=== PATIENT | female | born 1985 | race Caucasian/White ===

== ENCOUNTER 2016-09-12 12:55 | Outpatient (CLI) | payer OTHER ==
[~2016-09-12] VITALS: Ht 167.6 cm; Wt 116.8 kg
[~2016-09-12 12:55] MED LIST: /DULO30CA OR; /FENT50PA TD; ALDA50TA2 PO; AMBI12.52 PO; AMIT25TA10 PO; ASPI1TAB PO; BENA25TA4 PO; CIPROFLAXIN PO; CLON-412 PO; CLON1TAB PO; COLA50CA3 PO; CORE6.25 PO; DILT30TA2 PO; Dronabinol OR; EPIP0.3I2 INJ; ERRI0.35 PO; FLEC1TAB PO; HYDR-3363 PO; HYDROCODONE; IBUP800T OR; IMIT100T OR; IMIT6KIT2 SC; LABE100T2; LYRI75CA PO; MARI5CAP PO; MARINOL PO; MEDR4PAK PO; MSCONTIN PO; NAPR500T; NAPR500T OR; NORCOTAB PO; NORT25CA2 OR; OXYC10TA2 PO; OXYC30TA4 PO; PERC5TAB8 OR; PRED10TA2 PO; PREG100CA OR; PRIL40CA PO; PROP20TA2 OR; SENN8.6T10 PO; SODIUM CHLORIDE 0.9% INJ 10 ML SYR IV SCH; SOMA350T PO; TOPA100T8 PO; TOPAMAX; TOPI50TA; TOPI50TA OR; TYLE-18 PO; VICO5TAB; VIST50CA; ZANA2CAP OR; ZOFR4SOL PO; ZOFR8TAB; ZOLO50TA PO; [UNRECOGNIZED DRUG - CODE]; lisinopril PO; vicodin PO
== END 2016-09-12 13:30 | disposition home or self-care (01) ==
LOC: M INFU 12:55
PROVIDERS: ATTEND Family Medicine
DX: I48.91 Unspecified atrial fibrillation (principal); Z79.899 Other long term (current) drug therapy; Z88.8 Allergy status to other drugs, medicaments and biological substances; Z91.040 Latex allergy status; Z91.013 Allergy to seafood

== ENCOUNTER 2016-09-12 12:57 | Outpatient (CLI) | payer OTHER ==
[~2016-09-12 12:57] MED LIST changes: -SODIUM CHLORIDE 0.9% INJ 10 ML SYR IV SCH
== END 2016-09-12 13:30 | disposition home or self-care (01) ==
LOC: M LAB 12:57
PROVIDERS: ATTEND Specialist
DX: I48.91 Unspecified atrial fibrillation (principal)

== ENCOUNTER → 2016-09-14 | Outpatient (CLI) | payer OTHER ==
--- NOTE | 2016-09-14 13:53 | REP ---
Clinical: Anatomical evaluation. Comparison: 08/31/2016 . Findings: Examination demonstrates a single live intrauterine in cephalic presentation. motion is identified by technologist. Placenta is noted posteriorly and grade zero without evidence for placenta previa or abruption. Amniotic fluid volume is normal. Cervix measures 3.8 cm in length and appears closed. No evidence for nuchal cord. Gestational age by LMP 20 weeks 4 days with FARHAN 01/28/2017 . Gestational age by current measurements 20 weeks 1 day with FARHAN 01/31/2017 . FHR equals 147 beats per minute. Estimated weight 338 grams ( 33rd percentile). Anatomical assessment demonstrates normal structures including cranium, choroid plexus, cavum, cerebellum/posterior fossa, facial features, lungs, diaphragm, stomach, cord insertion/three-vessel cord, kidneys/bladder, spine, and extremities. Facial profile and four-chamber heart view again limited in evaluation due to positioning. Impression: Single live intrauterine demonstrating appropriate interval growth. While no gross anatomical abnormalities are identified, limited evaluation of the facial profile and heart/ventricular outflow tracts is again noted. Signed by Zak Noriega MD 09/14/2016 01:44 P
== END ==
LOC: M RAD 12:50
PROVIDERS: ATTEND Specialist
DX: Z36 Encounter for antenatal screening of mother (principal); Z3A.20 20 weeks gestation of pregnancy

== ENCOUNTER 2016-10-10 15:00 | Outpatient (CLI) | payer OTHER ==
[~2016-10-10] VITALS: Ht 167.6 cm; Wt 116.8 kg
[~2016-10-10 15:00] MED LIST changes: +SODIUM CHLORIDE 0.9% INJ 10 ML SYR IV SCH
== END 2016-10-10 15:30 | disposition home or self-care (01) ==
LOC: M INFU 15:00
PROVIDERS: ATTEND Family Medicine
DX: I48.91 Unspecified atrial fibrillation (principal); Z79.899 Other long term (current) drug therapy; Z88.8 Allergy status to other drugs, medicaments and biological substances; Z91.040 Latex allergy status; Z91.013 Allergy to seafood

== ENCOUNTER → 2016-10-12 | Outpatient (CLI) | payer OTHER ==
[~2016-10-12] MED LIST changes: -SODIUM CHLORIDE 0.9% INJ 10 ML SYR IV SCH
--- NOTE | 2016-10-13 03:39 | REP ---
Clinical: Anatomical evaluation. Comparison: 09/14/2016 . Findings: Examination demonstrates a single live intrauterine in cephalic presentation. motion is identified by technologist. Placenta is noted posteriorly and grade zero without evidence for placenta previa or abruption. Amniotic fluid volume is normal. Cervix measures 4.4 cm in length and appears closed. No evidence for nuchal cord. Gestational age by LMP 24 weeks 4 days with FARHAN 01/28/2017 . Gestational age by current measurements 24 weeks to date with FARHAN 01/30/2017 . FHR equals 150 beats per minute. Estimated weight 693 grams ( 38th percentile). Anatomical assessment demonstrates normal structures including cranium, choroid plexus, cavum, cerebellum/posterior fossa, facial features, lungs, diaphragm, stomach, cord insertion/three-vessel cord, kidneys/bladder, spine, and extremities. Impression: Single live intrauterine in cephalic presentation demonstrating appropriate interval growth. Limited evaluation of the heart and cardiac ventricular outflow tracts noted. Remainder of the anatomical assessment is complete and normal. Signed by Zak Noriega MD 10/13/2016 03:31 A
== END ==
LOC: M RAD 15:07
PROVIDERS: ATTEND Specialist
DX: Z36 Encounter for antenatal screening of mother (principal); Z3A.24 24 weeks gestation of pregnancy

== ENCOUNTER → 2016-10-26 | Outpatient (CLI) | payer OTHER ==
--- NOTE | 2016-10-26 13:26 | REP ---
Clinical: Anatomical evaluation. Comparison: 10/12/2016 . Findings: Examination demonstrates a single live intrauterine in cephalic presentation. motion is identified by technologist. Placenta is noted posteriorly and grade zero without evidence for placenta previa or abruption. Amniotic fluid volume is normal. Cervix measures 5.7 cm in length and appears closed. No evidence for nuchal cord. Gestational age by LMP 26 weeks 4 days with FARHAN 01/28/2017 . Gestational age by current measurements 26 weeks 4 days with FARHAN 01/28/2017 . FHR equals 163 beats per minute. Estimated weight 963 grams ( 43rd percentile). Anatomical assessment demonstrates normal structures including cranium, choroid plexus, cavum, cerebellum/posterior fossa, facial features, lungs, four-chamber heart/ventricular outflow tracts, diaphragm, stomach, cord insertion/three-vessel cord, kidneys/bladder, spine, and extremities. Impression: Single live intrauterine demonstrating appropriate interval growth. Anatomical assessment is complete and normal. Signed by Zak Noriega MD 10/26/2016 01:18 P
== END ==
LOC: M RAD 11:20
PROVIDERS: ATTEND Specialist
DX: Z36 Encounter for antenatal screening of mother (principal); Z3A.26 26 weeks gestation of pregnancy

== ENCOUNTER 2016-10-28 08:09 | Outpatient (CLI) | payer OTHER ==
[2016-10-28] MEDS ORDERED: SODIUM CHLORIDE 0.9% INJ 10 ML SYR IV SCH (09:00)
[2016-10-28 10:20] LABS: BASO % 0.5 % (0.0-1.0); EOS # 0.3 K/mm3 (0.0-0.50); EOS % 2.8 % (0.0-3.0); LARGE UNSTAINED CELL # 0.1 K/mm3 (0.0-0.4); LARGE UNSTAINED CELL % 1.4 % (0.0-4.0); LYMPH # 2.4 K/mm3 (1.5-4.5); LYMPH % 23.8 % (24.0-44.0); MEAN CORPUSCULAR HEMOGLOBIN 30.6 pg (27.0-33.0); MEAN CORPUSCULAR HGB CONC 33.8 g/dl (32.0-36.5); MEAN CORPUSCULAR VOLUME 90.5 fl (80.0-96.0); MONO # 0.6 K/mm3 (0.0-0.8); MONO % 6.7 % (0.0-5.0); NEUTROPHILS # 6.1 K/mm3 (1.8-7.7); NEUTROPHILS % 64.8 % (36.0-66.0); PLATELET COUNT, AUTOMATED 245 k/mm3 (150-450); RED CELL DISTRIBUTION WIDTH 13.2 % (11.5-14.5); WHITE BLOOD COUNT 9.4 K/mm3 (4.0-10.0)
== END 2016-10-28 09:45 | disposition home or self-care (01) ==
LOC: M INFU 08:09
PROVIDERS: ATTEND Specialist
DX: Z79.899 Other long term (current) drug therapy (principal); Z88.8 Allergy status to other drugs, medicaments and biological substances; Z88.5 Allergy status to narcotic agent; Z91.040 Latex allergy status; Z91.013 Allergy to seafood; Z87.891 Personal history of nicotine dependence

== ENCOUNTER 2016-10-29 11:01 | Outpatient (CLI) | payer OTHER ==
[~2016-10-29] VITALS: Ht 167.6 cm; Wt 99.0 kg
[~2016-10-29 11:01] MED LIST changes: +SODIUM CHLORIDE 0.9% INJ 10 ML SYR IV SCH
[2016-10-29 11:16] VITALS: BP 142/71
[2016-10-29] MEDS ORDERED: LACTATED RINGER'S 1000 ML IV STA (11:31)
[2016-10-29] MEDS ORDERED: LR 1,000 ML IV SCH (11:31)
[2016-10-29] MEDS ORDERED: levETIRAcetam 250MG TABLET (KEPPRA) PO ONE (11:45)
[2016-10-29] MEDS ORDERED: ONDANSETRON 4MG/2ML VIAL (J2405) As Ordered ONE (12:14)
[2016-10-29] MEDS ORDERED: ONDANSETRON 4MG/2ML VIAL (J2405) IV ONE (12:30)
[2016-10-29 12:36] LABS: BASO % 0.2 % (0.0-1.0); EOS # 0.1 K/mm3 (0.0-0.50); EOS % 0.6 % (0.0-3.0); LARGE UNSTAINED CELL % 0.4 % (0.0-4.0); LYMPH % 8.4 % (24.0-44.0); MEAN CORPUSCULAR HGB CONC 34.4 g/dl (32.0-36.5); MEAN CORPUSCULAR VOLUME 90.1 fl (80.0-96.0); MONO # 0.6 K/mm3 (0.0-0.8); MONO % 4.9 % (0.0-5.0); NEUTROPHILS # 9.8 K/mm3 (1.8-7.7); NEUTROPHILS % 85.5 % (36.0-66.0); PLATELET COUNT, AUTOMATED 247 k/mm3 (150-450); RED CELL DISTRIBUTION WIDTH 13.1 % (11.5-14.5); WHITE BLOOD COUNT 11.5 K/mm3 (4.0-10.0)
[2016-10-29 12:58] LABS: ALBUMIN/GLOBULIN RATIO 0.88 (1.00-1.93); ALKALINE PHOSPHATASE 94 U/L (45-117); ALT/SGPT 16 U/L (12-78); ANION GAP 11 MEQ/L (8-16); AST/SGOT 11 U/L (15-37); BILIRUBIN,TOTAL 0.4 MG/DL (0.2-1.0); BLOOD UREA NITROGEN 5 MG/DL (7-18); CALCIUM LEVEL 8.1 MG/DL (8.5-10.1); CARBON DIOXIDE LEVEL 25 MEQ/L (21-32); CHLORIDE LEVEL 106 MEQ/L (98-107); CREATININE FOR GFR 0.48 MG/DL (0.55-1.02); GLOMERULAR FILTRATION RATE > 60.0 (>60); GLUCOSE, FASTING 77 MG/DL (70-105); POTASSIUM SERUM 3.5 MEQ/L (3.5-5.1); SODIUM LEVEL 142 MEQ/L (136-145); TOTAL PROTEIN 6.4 GM/DL (6.4-8.2)
== END 2016-10-29 15:50 | disposition home or self-care (01) ==
LOC: M LDO 11:01
PROVIDERS: ATTEND Specialist
DX: O21.2 Late vomiting of pregnancy (principal); Z3A.26 26 weeks gestation of pregnancy
CPT/HCPCS: 59025; 80053; 85025; 87804; 96374; J2405

== ENCOUNTER 2016-11-07 15:03 | Outpatient (CLI) | payer OTHER ==
[2016-11-07 16:10] LABS: BASO % 0.3 % (0.0-1.0); EOS # 0.1 K/mm3 (0.0-0.50); EOS % 1.2 % (0.0-3.0); LARGE UNSTAINED CELL # 0.1 K/mm3 (0.0-0.4); LYMPH # 2.7 K/mm3 (1.5-4.5); LYMPH % 22.5 % (24.0-44.0); MEAN CORPUSCULAR HEMOGLOBIN 31.3 pg (27.0-33.0); MEAN CORPUSCULAR HGB CONC 34.4 g/dl (32.0-36.5); MEAN CORPUSCULAR VOLUME 90.9 fl (80.0-96.0); MONO # 0.7 K/mm3 (0.0-0.8); MONO % 5.7 % (0.0-5.0); NEUTROPHILS % 69.3 % (36.0-66.0); PLATELET COUNT, AUTOMATED 251 k/mm3 (150-450); RED CELL DISTRIBUTION WIDTH 13.1 % (11.5-14.5); WHITE BLOOD COUNT 11.6 K/mm3 (4.0-10.0)
[2016-11-07 16:50] LABS: ALBUMIN 2.8 GM/DL (3.2-5.2); ALBUMIN/GLOBULIN RATIO 0.85 (1.00-1.93); ALKALINE PHOSPHATASE 90 U/L (45-117); ALT/SGPT 20 U/L (12-78); ANION GAP 11 MEQ/L (8-16); AST/SGOT 18 U/L (15-37); BILIRUBIN,TOTAL 0.2 MG/DL (0.2-1.0); BLOOD UREA NITROGEN 5 MG/DL (7-18); CALCIUM LEVEL 8.1 MG/DL (8.5-10.1); CARBON DIOXIDE LEVEL 25 MEQ/L (21-32); CHLORIDE LEVEL 106 MEQ/L (98-107); CREATININE FOR GFR 0.43 MG/DL (0.55-1.02); GLOMERULAR FILTRATION RATE > 60.0 (>60); GLUCOSE, FASTING 79 MG/DL (70-105); POTASSIUM SERUM 3.9 MEQ/L (3.5-5.1); SODIUM LEVEL 142 MEQ/L (136-145); TOTAL PROTEIN 6.1 GM/DL (6.4-8.2)
== END 2016-11-07 15:55 | disposition home or self-care (01) ==
LOC: M INFU 15:03
PROVIDERS: ATTEND Specialist
DX: I48.91 Unspecified atrial fibrillation (principal); Z79.899 Other long term (current) drug therapy; Z88.8 Allergy status to other drugs, medicaments and biological substances; Z91.040 Latex allergy status; Z91.013 Allergy to seafood; Z88.5 Allergy status to narcotic agent

== ENCOUNTER 2016-12-14 14:45 | Outpatient (CLI) | payer OTHER ==
[~2016-12-14] VITALS: Ht 167.6 cm; Wt 116.8 kg
== END 2016-12-14 15:15 | disposition home or self-care (01) ==
LOC: M INFU 14:45
PROVIDERS: ATTEND Family Medicine
DX: I48.91 Unspecified atrial fibrillation (principal); Z79.899 Other long term (current) drug therapy; Z88.8 Allergy status to other drugs, medicaments and biological substances; Z88.5 Allergy status to narcotic agent; Z91.040 Latex allergy status; Z91.013 Allergy to seafood

== ENCOUNTER 2016-12-27 13:42 | Outpatient (CLI) | payer OTHER ==
[~2016-12-27] VITALS: Ht 167.6 cm; Wt 116.8 kg
[2016-12-27 14:28] LABS: BASO % 0.4 % (0.0-1.0); EOS # 0.2 K/mm3 (0.0-0.50); EOS % 1.8 % (0.0-3.0); LARGE UNSTAINED CELL # 0.1 K/mm3 (0.0-0.4); LARGE UNSTAINED CELL % 1.1 % (0.0-4.0); LYMPH # 2.2 K/mm3 (1.5-4.5); LYMPH % 22.1 % (24.0-44.0); MEAN CORPUSCULAR HEMOGLOBIN 32.5 pg (27.0-33.0); MEAN CORPUSCULAR HGB CONC 35.9 g/dl (32.0-36.5); MEAN CORPUSCULAR VOLUME 90.5 fl (80.0-96.0); MONO # 0.4 K/mm3 (0.0-0.8); MONO % 4.2 % (0.0-5.0); NEUTROPHILS # 7.1 K/mm3 (1.8-7.7); NEUTROPHILS % 70.4 % (36.0-66.0); PLATELET COUNT, AUTOMATED 232 k/mm3 (150-450); RED CELL DISTRIBUTION WIDTH 12.7 % (11.5-14.5); WHITE BLOOD COUNT 10.1 K/mm3 (4.0-10.0)
[2016-12-27 14:56] LABS: CHLORIDE LEVEL 105 MEQ/L (98-107); POTASSIUM SERUM 3.7 MEQ/L (3.5-5.1); SODIUM LEVEL 138 MEQ/L (136-145)
[2016-12-27 15:32] LABS: BLOOD UREA NITROGEN 5 MG/DL (7-18); CREATININE FOR GFR 0.49 MG/DL (0.55-1.02); GLOMERULAR FILTRATION RATE > 60.0 (>60); GLUCOSE, FASTING 96 MG/DL (70-105)
[2016-12-27 15:33] LABS: ALBUMIN 2.8 GM/DL (3.2-5.2); ALBUMIN/GLOBULIN RATIO 0.78 (1.00-1.93); ALKALINE PHOSPHATASE 128 U/L (45-117); ALT/SGPT 10 U/L (12-78); ANION GAP 10 MEQ/L (8-16); AST/SGOT 9 U/L (15-37); BILIRUBIN,TOTAL 0.3 MG/DL (0.2-1.0); CARBON DIOXIDE LEVEL 23 MEQ/L (21-32); TOTAL PROTEIN 6.4 GM/DL (6.4-8.2); URIC ACID 3.2 MG/DL (2.6-6.0)
== END 2016-12-27 14:15 | disposition home or self-care (01) ==
LOC: M INFU 13:42
PROVIDERS: ATTEND Family Medicine
DX: O99.350 Diseases of the nervous system complicating pregnancy, unspecified trimester (principal); G40.409 Other generalized epilepsy and epileptic syndromes, not intractable, without status epilepticus; O99.413 Diseases of the circulatory system complicating pregnancy, third trimester; I48.91 Unspecified atrial fibrillation; O10.013 Pre-existing essential hypertension complicating pregnancy, third trimester; Z79.899 Other long term (current) drug therapy; Z88.8 Allergy status to other drugs, medicaments and biological substances; Z88.5 Allergy status to narcotic agent; Z91.040 Latex allergy status; Z91.013 Allergy to seafood; Z3A.00 Weeks of gestation of pregnancy not specified

== ENCOUNTER → 2016-12-28 | Outpatient (REF) | payer OTHER ==
[~2016-12-28] MED LIST changes: -SODIUM CHLORIDE 0.9% INJ 10 ML SYR IV SCH
[2016-12-28 18:06] LABS: CREATININE, SERUM 0.5 MG/DL (0.6-1.0)
[2016-12-28 20:01] LABS: CREATININE CLEARANCE, URINE 174.2 ML/MIN (75-115)
== END ==
LOC: M LAB REF 17:35
PROVIDERS: ATTEND Advanced Practice Midwife
DX: O10.013 Pre-existing essential hypertension complicating pregnancy, third trimester (principal)

== ENCOUNTER → 2017-01-06 | Outpatient (REF) | payer OTHER | LOC: M LAB REF 16:51 | PROVIDERS: ATTEND Specialist | DX: O10.013 Pre-existing essential hypertension complicating pregnancy, third trimester (principal) ==

== ENCOUNTER 2017-02-16 15:41 | Outpatient (CLI) | payer OTHER ==
[~2017-02-16 15:41] MED LIST changes: +SODIUM CHLORIDE 0.9% INJ 10 ML SYR IV SCH
== END 2017-02-16 16:00 | disposition home or self-care (01) ==
LOC: M INFU 15:41
PROVIDERS: ATTEND Family Medicine
DX: I48.91 Unspecified atrial fibrillation (principal); Z79.899 Other long term (current) drug therapy; Z88.8 Allergy status to other drugs, medicaments and biological substances; Z91.040 Latex allergy status; Z91.013 Allergy to seafood

== ENCOUNTER → 2017-02-28 | Outpatient (CLI) | payer OTHER ==
[~2017-02-28] MED LIST changes: -SODIUM CHLORIDE 0.9% INJ 10 ML SYR IV SCH
--- NOTE | 2017-02-28 11:33 | REP ---
Clinical: Pelvic and perineal pain. Technique: Transabdominal pelvic ultrasound followed by transvaginal examination for better evaluation of the endometrium. Findings: Bladder is unremarkable and measures 9.1 x 3.7 x 7.3 cm . Normal retroflexed uterus measures 10.3 x 5.4 x 7.2 cm . The endometrial complex measures 10 mm thickness. No discrete uterine or endometrial abnormalities are appreciated. Bilateral ovaries are normal in appearance. Right ovary measures 2.8 x 2.2 x 2.5 cm. Left ovary measures 2.4 x 1.6 x 1.9 cm. No pelvic fluid or adnexal mass lesion. Impression: 1. Normal pelvic ultrasound. Signed by Zak Noriega MD 02/28/2017 11:24 A
== END ==
LOC: M RAD 10:52
PROVIDERS: ATTEND Specialist
DX: R10.9 Unspecified abdominal pain (principal)

== ENCOUNTER 2017-03-02 09:37 | Outpatient (CLI) | payer OTHER ==
[~2017-03-02] VITALS: Ht 167.6 cm; Wt 110.8 kg
[~2017-03-02 09:37] MED LIST changes: +SODIUM CHLORIDE 0.9% INJ 10 ML SYR IV SCH; +TOPA100T12 PO; -TOPA100T8 PO
== END 2017-03-02 10:15 | disposition home or self-care (01) ==
LOC: M INFU 09:37
PROVIDERS: ATTEND Family Medicine
DX: I48.91 Unspecified atrial fibrillation (principal); Z79.899 Other long term (current) drug therapy; Z88.5 Allergy status to narcotic agent; Z88.8 Allergy status to other drugs, medicaments and biological substances; Z91.040 Latex allergy status; Z91.013 Allergy to seafood

== ENCOUNTER 2017-03-16 15:21 | Outpatient (CLI) | payer OTHER | END 2017-03-16 16:00 | disposition home or self-care (01) | LOC: M INFU 15:21 | PROVIDERS: ATTEND Family Medicine | DX: I48.91 Unspecified atrial fibrillation (principal); Z79.899 Other long term (current) drug therapy; Z88.5 Allergy status to narcotic agent; Z88.8 Allergy status to other drugs, medicaments and biological substances; Z91.040 Latex allergy status; Z91.013 Allergy to seafood ==

== ENCOUNTER → 2017-04-12 | Outpatient (CLI) | payer OTHER ==
[~2017-04-12] MED LIST changes: +LEVETIRACETAM; +PERC5TAB12 PO; +PRAZ1CAP; -SODIUM CHLORIDE 0.9% INJ 10 ML SYR IV SCH; +ZOLO100T
== END ==
LOC: M PAIN 15:00
PROVIDERS: ATTEND Anesthesiology
DX: G57.91 Unspecified mononeuropathy of right lower limb (principal); Z53.20 Procedure and treatment not carried out because of patient's decision for unspecified reasons

== ENCOUNTER → 2017-04-19 | Outpatient (CLI) | payer OTHER ==
--- NOTE | 2017-05-04 00:24 | ECWPNPC ---
PATIENT NAME: OSMANY SAMPSON : 1985 GENDER: FEMALE VISIT DATE: 04/19/2017 DISCHARGE DATE: 04/19/17 1647 VISIT LOCKED DATE TIME: PHYSICIAN: LUMA POOL PHYSICIAN PAGER NO: [phone] RESOURCE: LUMA POOL REASON FOR APPOINTMENT 1. ILLOINGUINAL NERVE HISTORY OF PRESENT ILLNESS TODAY'S VISIT: NOTES: PT REFERRED BY DR ROSSI FOR C/O POST CESEAREAN LOW RIGHT ABDOMENAL PAIN. CSECTION 01/26/17. ONSET OF PAIN WAS A FEW DAYS AFTER SURGERY. PAIN IS A BURNING/STABBING /SHOOTING WHICH IS CONSTANT. PAIN CAN BECOME GRABBING AND EXTREMELY INTENSE. PAIN IS TIGHT AT OUTER EDGE OF THE INCISION AND RADIATES INTO SARAH. OCCASIONAL SHARP STABB DEEP INTO VAGINA. HAS OLD HX OF BACK PAIN. IS BEING SCHEDULED FOR BACK SURGERY AT [place] May. NOT NURSING. HAS BEEN TREATED WITH PAIN MEDS BY DR ROSSI. HAS ALLERGIES TO BETADINE , CHLORAPREP.. NEW PATIENT CONSULT: WHEN DID YOUR PAIN FIRST START? . BRIEFLY DESCRIBE HOW YOUR PAIN STARTED? . HOW DOES YOUR PAIN CHANGE WITH TIME? . DOES YOUR PAIN AWAKEN YOU FROM SLEEP? . HOW MANY HOURS OF SLEEP DO YOU NORMALLY GET? . ANY DIAGNOSTIC TESTING? . FACILITY WHERE TESTS WERE DONE? ____. PAIN TREATMENT TREATMENT YES CANCER HAVE YOU EVER HAD ANY TYPE OF CANCER?NO NO. PAIN SCREENING: PATIENT HAS A COMPLAINT OF ACUTE OR CHRONIC PAIN :YES FALL RISK SCREENING: SCREENING :NO FALLS IN THE PAST YEAR DUVALL INVENTORY: QUESTIONNAIRE ASSESSEDYES SCORE VALUE CALCULATED YES SCORE: DENIES SUICIDAL OR HOMICIDAL IDEATION CURRENT MEDICATIONS TAKING AMBIEN 10 MG TABLET 1 TABLET AT BEDTIME ORALLY HSPRN TAKING EPIPEN 0.3 MG/0.3ML SOLUTION AUTO-INJECTOR ONE APPLICATION INJECTION DIRECTED TAKING TIZANIDINE HCL 4 MG TABLET 1 1/2 CAPSULE NEEDED ORALLY EVERY 8 HRS PRN TAKING CARVEDILOL 12.5 MG TABLET 1 TABLET WITH FOOD ORALLY TWICE A DAY TAKING CARDIZEM 60 MG TABLET 1 TABLET BEFORE MEALS ORALLY THREE TIMES A DAY TAKING ZOFRAN ODT 4 MG TABLET DISPERSIBLE DISSOLVE ONE TO TWO TABLETS ON THE TONGUE THREE TIMES A DAY NEEDED ORALLY THREE TIMES DAILY NEEDED TAKING FLECAINIDE ACETATE 50 MG TABLET ORALLY TWICE DAILY NEEDED TAKING LEVETIRACETAM 500 MG TABLET 1 TABLET ORALLY TWICE A DAY TAKING PRAZOSIN HCL 2 MG CAPSULE 1 CAPSULE AND 1- 1MG CAPSULE ORALLY ONCE A DAY TAKING SERTRALINE HCL 100 MG TABLET 1 AND 1/2 TABLET ORALLY ONCE A DAY NOT-TAKING LYSTEDA 650 MG TABLET 2 TABLET ORALLY QIDPRN NOT-TAKING ALBUTEROL SULFATE HFA 108 (90 BASE) MCG/ACT AEROSOL SOLUTION 2 PUFFS NEEDED INHALATION EVERY 4 HRS MEDICATION LIST REVIEWED AND RECONCILED WITH THE PATIENT PAST MEDICAL HISTORY HYPERTENSION AFIB RSD FIBROMYALGIA SEIZURE DISORDER DDD ALLERGIES TRAMADOL: RASH,RESP.: ALLERGY NEURONTIN: NAUSEA/VOMITING: ALLERGY TORADOL: ,RESP: ALLERGY MOTRIN: NAUSEA/VOMITING: ALLERGY PENNSAID: RASH: ALLERGY CONTRAST DYE: ANAPHYLAXIS: ALLERGY LATEX: RASH: ALLERGY PICC LINES: RASH: ALLERGY SEAFOODS: ANAPHYLAXIS: ALLERGY SURGICAL GLUE: RASH: ALLERGY BETADINE/IODINE: RASH: ALLERGY ADHESIVE TAPE: RASH: ALLERGY SURGICAL HISTORY 6 LAPAROSCOPIES 2 D&C'S PORT PLACEMENT ABLASION AND LOOP RECORDER GALL BLADDER APPENDECTOMY X2 TEETH REMOVED LAPAROSCOPY,D+C- 02/19/15 REMOVAL OF LOOP [id number] INFECTION,CELLULITIS AND ALLERGIC REACTION TO SURGICAL GLUE 07/03/15 FAMILY HISTORY FATHER: UNKNOWN MOTHER: ALIVE 58 YRS SIBLINGS: ALIVE SON(S): ALIVE 1 BROTHER(S) , 2 SISTER(S) - HEALTHY. 1 SON(S) , 1 DAUGHTER(S) - HEALTHY. DAUGHTER HAS ASTHMA. SOCIAL HISTORY GENERAL: TOBACCO USE ARE YOU A:FORMER SMOKER HOW LONG HAS IT BEEN SINCE YOU LAST SMOKED?6-12 MONTHS RECREATIONAL DRUG USE DRUG USE?NO NONDENOMINATIONAL [id number] NONE LANGUAGE LANGUAGES SPOKEN:KINYARWANDA LEARNING BARRIERS / SPECIAL NEEDS BARRIERS TO LEARNING?NO HEARING IMPAIRED?NO VISION IMPAIRED?NO COGNITIVELY IMPAIRED?NO READINESS TO LEARN?YES LEARNING PREFERENCES?NO LEARNING CAPABILITIES PRESENT?YES EMOTIONAL BARRIERS?NO SPECIAL DEVICES?NO BUGGYMAN NEEDED?NO PAIN CLINIC PFS, CLERGY, PUBLIC HEALTH REFERRALS PFS REFERRAL NEEDED?NO CLERGY REFERRAL NEEDED?NO PUBLIC HEALTH REFERRAL NEEDED?NO WAS THE PROVIDER NOTIFIED OF ANY PERTINENT INFO?NO HAS THE PATIENT BEEN EDUCATED REGARDING HIS/HER PLAN OF CARE?YES HAS THE PATIENT BEEN EDUCATED REGARDING PAIN, THE RISK FOR PAIN, THE IMPORTANCE OF EFFECTIVE PAIN MANAGEMENT, AND THE PAIN ASSESSMENT PROCESS?YES PATIENT: ____. ADVANCE DIRECTIVES HEALTH CARE PROXY?YES NAME OF HCP LILIA SAMPSON CONTACT # FOR HCP [phone] DO YOU HAVE A COPY WITH YOU?NO DO YOU HAVE A DNR?NO WOULD YOU LIKE MORE INFORMATION?NO LIVING WILL?NO WOULD YOU LIKE MORE INFORMATION?NO POWER OF CONSUMER INSIGHTS INTERN?NO WOULD YOU LIKE MORE INFORMATION?NO HOSPITALIZATION/MAJOR DIAGNOSTIC PROCEDURE HOSPITALIZATIONS W SURGERIES ICU-COSTOCHONDRITIS 05/31/14 [facility]-ABD. PAIN AND SWELLING,VOMITING 12/19/14 [facility] ER-BACK INJURY 10/18/15 REVIEW OF SYSTEMS REVIEWED BY: PROVIDER: LUMA BARRON . CONSTITUTIONAL: ANY CHANGE IN YOUR MEDICAL CONDITION? NO . CHILLS NO . FEVER NO . INFECTION: DO YOU HAVE NEW INFECTIONS? NO . DO YOU HAVE HISTORY OF MRSA? NO . MUSCULOSKELETAL: ANY NEW PATTERNS OF PAIN OR NUMBNESS? NO . SYTEMIC LUPUS NO . BONE PAIN PERSISTANT LOW BACK PAIN WITH RADIATION INTO LEGS. PREPARING FOR SURGERY . MUSCLE PAIN HX OF CPMPLEX REGIONAL PAIN AND CONTRACTURES TO RIGHT HAND AND ARM . GASTROENTEROLOGY: ANY NEW CHANGE IN BOWEL CONTROL? NO . BARRETTS ESOPHAGUS NO . CIRRHOSIS NO . HEPATITIS NO . LIVER FAILURE NO . ACID REFLUX NO . UNEXPLAINED WEIGHT LOSS NO . GENITOURINARY: ANY NEW CHANGE IN BLADDER CONTROL? NO . IS THERE A CHANCE YOU COULD BE ? NO . HEMATOLOGY/LYMPH: DO YOU TAKE ANY BLOOD THINNERS? (FOR EXAMPLE- COUMADIN, PLAVIX, AGGRENOX, PLATEL, PRADAXA, OR XARELTO) NO . WHEN WAS YOUR LAST DOSE? DATE: TIME: . LOW PLATELET COUNT NO . SICKLE CELL DISEASE NO . VON WILLIEBRANDS NO . FACTOR V LEIDEN NO . THALLASEMIA NO . ANEMIA NO . EASY BRUISING NO . NEUROLOGY: ANY NEW SEIZURES? LAST SEIZURE 4 WEEKS AGO. ON [facility]SEES DR CHINYERE HUIZAR . MYAASTHENIA GRAVIS NO . CARDIOLOGY: DO YOU HAVE A PACEMAKER OR DEFIBRILLATOR? NO . ANGINA NO . HEART ATTACK NO . HEART SURGERY NO . CONGESTIVE HEART FAILURE/FLUID OVERLOAD NO . CHEST PAIN NO . HIGH BLOOD PRESSURE ON MEDICATION(S) . IRREGULAR HEART BEAT SKIPPED HEART BEAT- ATRIAL FIBRILLATION . RESPIRATORY: HAVE YOU BEEN SICK IN THE PAST WEEK? NO . FEVER NO . FLU LIKE SYMPTOMS? NO . CPAP NO . BYPAP NO . ASTHMA NO . EMPHYSEMA NO . CHRONIC LUNG DISEASES NO . SHORTNESS OF BREATH ON EXERTION NO . DO YOU USE ANY TYPE OF TOBACCO (SMOKE, SMOKELESS, CHEW)? NO . COUGH NO . SNORING NO . INTEGUMENTARY: DO YOU HAVE ANY RASHES OR OPEN SORES? NO . ALLERGIC/IMMUNO: ARE YOU ALLERGIC TO SHELLFISH OR IV DYE? YES, SHELLFISH AND IV DYE . ANY NEW ALLERGIES? NO . PSYCHIATRIC: DO YOU HAVE THOUGHTS OF HURTING YOURSELF OR SOMEONE ELSE? NO . ARE YOU ABUSED, NEGLECTED, OR IN AN UNSAFE ENVIRONMENT? NO . ENDOCRINOLOGY: ARE YOU DIABETIC? NO . THYROID DISORDER NO . OTHER: DO YOU NEED ANY PRESCRIPTIONS? NO . IF YES, PLEASE LIST: ____ . ANY NEW PROBLEMS WITH YOUR MEDICATIONS? NO . WHEN DID YOU LAST EAT? ____ . WHEN DID YOU LAST DRINK? ____ . WHAT DID YOU LAST DRINK? ____ . NAME OF PERSON DRIVING YOU HOME? ____ . DO YOU HAVE ANY OTHER QUESTIONS OR CONCERNS NO . PSYCHOLOGY: ANXIETY PTSD AND ANXIETY - SEES A COUNSELOR IS STILL DEALING WITH LEGAL ISSUES . SKIN: DO YOU HAVE ANY RASHES OR OPEN SORES? HEALED NOW BUT HAD YEAST INFECTION AND ALLERGIC REACTION AFTER . VITAL SIGNS WT 214 LBS, HT 5'5 1/2", BMI 35.07 INDEX, BP 143/74 MM HG, HR 79 /MIN, RR 18 /MIN, TEMP 98.1 F, OXYGEN SAT % 96, NA INITIALS AW 1515, REVIEWED BY: MAEGAN. EXAMINATION GENERAL EXAMINATION: GENERAL APPEARANCE:COLOR PALE, APPEARS UNCOMFORTABLE. CHANGES POSITION FREQUENTLY. PSYCHALERT , ORIENTED X 3 , APPROPRIATE MOOD AND AFFECT . HEENT:NORMOCEPHALIC, NO LYMPHADENOPATHY, NO THYROMEGLY. LUNGS:CLEAR TO AUSCULTATION BILATERALLY, NO WHEEZES, RALES OR RHONCHI. HEART:HEART RATE REGULAR, RAPID. NO CAROTID BRUITS. ABDOMEN:SOFT AND NOT TENDER, BOWEL SOUNDS ACTIVE. EXQUISITE TENDERNESS OVER RIGHT ILIOINGUINAL REGION ANLONG THE LATER ASPECT OF THE WELL HEALED INCISION OVER THE SYMPHYSIS PUBIS. SOME TENDERNESS AND HYPERSENSITIVITY OVER RIGHT ANTERIOR AND MEDIAL THIGH REGIONS. . MUSCULOSKELETAL:MUSCLE STRENGTH TESTING 5/5 BILATERAL LOWER EXTREMITIES AND LEFT UPPER EXTREMITY DECREASED MUSCLE STRENGTH, FLEXIBILITY AND ROM TO RIGHT HAND AND UPPER EXTREMITY.. POINT TENDERNESS OVER LUMBAR SPINOUS PROCESSES. 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 WALK AND MOVE POSSIBLESEND RELEASE OF INFORMATION FROM DR GALICIA AND HAVE HIM FAX TO [phone] SO WE CAN DISCUSS CASE AND THERAPIES. CLINICAL NOTES: ISTOP REGISTRY REVIEWED AND DEMNOSTRATES COMPLLIANCE. EDICATIONS WERE PRESENT. LENGTHY DISCUSSION HELD REGARDING OPTIONS FOFR MEDICATION MANAGEMENT. AT THAT TIME I DID NOT HAVE ALL OF PT'S OLD RECORDS. SHE REPORTS THAT SHE HAD BEEN ON MARINOL IN THE PAST AND THAT THIS WAS HELPFUL FOR PAIN CONTROL. WE DID START DISCUSSION REGARDING USE OF MEDICAL MARIJUANA. THAT REFERRAL WAS NOT YET MADE SHE IS BEING CURRENTL SCHEDULED OFR BACK SURGERY. I DID DISCUSS WITH HER THAT WE ARE NOT LOOKING TO USE MUCH IN THE WAY OF OPIATE MEDICATIONS. PREVENTIVE MEDICINE PAIN CLINIC TEACHING: MEDICATIONS MARINOL AND TIZANIDINE TEACHING DONE. PATIENT VERBALIZES UNDERSTANDING.. PROCEDURE TEACHING PRE-PROCEDURE TEACHING DONE. PATIENT VERBALIZES UNDERSTANDING.. PROCEDURE CODES FA211 ESTABILISHED PATIENT [facility] FACILITY CHARGE DISPOSITION & COMMUNICATION FOLLOW UP AFTER PROCEDURE (REASON: CHECK AUTH RIGHT ILIOINGUINAL NERVE BLOCK) ELECTRONICALLY SIGNED BY MAXIMILIAN ALVARADO ON 05/03/2017 AT 09:54 AM EDT DISCLAIMER : THIS IS A VISIT SUMMARY EXTRACTED FROM THE [employer] CHART. IT IS NOT A COPY OF THE [employer] PROGRESS NOTE. MTDD
== END ==
LOC: M PAIN 14:40
PROVIDERS: ATTEND Nurse Practitioner Family
DX: G57.91 Unspecified mononeuropathy of right lower limb (principal); M25.551 Pain in right hip; M25.552 Pain in left hip; Z79.899 Other long term (current) drug therapy; Z87.891 Personal history of nicotine dependence; Z88.8 Allergy status to other drugs, medicaments and biological substances; Z91.041 Radiographic dye allergy status; Z91.040 Latex allergy status; Z91.013 Allergy to seafood; Z91.048 Other nonmedicinal substance allergy status

== ENCOUNTER → 2017-04-26 | Outpatient (CLI) | payer OTHER ==
--- NOTE | 2017-04-26 14:27 | REP ---
PELVIS AND BILATERAL HIPS: AP view of the pelvis and AP and frog-leg views of bilateral hips are performed. There is no fracture, dislocation or intrinsic bone disease. The hip joints appear normal. Sacroiliac joints appear unremarkable. IMPRESSION: Negative radiographs pelvis and hips. Signed by Андрей Valles MD 04/26/2017 05:22 P
== END ==
LOC: M RAD 12:38
PROVIDERS: ATTEND Nurse Practitioner Family
DX: G57.91 Unspecified mononeuropathy of right lower limb (principal); M25.551 Pain in right hip; M25.552 Pain in left hip

== ENCOUNTER 2017-05-31 20:41 | Emergency (ER) | payer OTHER ==
[~2017-05-31 20:41] MED LIST changes: -LEVETIRACETAM; -PERC5TAB12 PO; -PRAZ1CAP; -ZOLO100T
[2017-05-31] MEDS ORDERED: ZOLO100T (21:02)
[2017-05-31] MEDS ORDERED: LEVETIRACETAM (21:02)
[2017-05-31] MEDS ORDERED: PRAZ1CAP (21:02)
[2017-05-31] MEDS ORDERED: ONDANSETRON 4MG/2ML VIAL (J2405) IV ONE (21:15)
[2017-05-31] MEDS ORDERED: MORPHINE 4 MG/ML 1ML SYRINGE IV ONE (21:15)
--- NOTE | 2017-05-31 22:10 | REPUSA ---
CT of the lumbar spine without contrast Clinical history: Pain. Fall. Technique: Multiple axial CT images were obtained through the lumbar spine without administration of contrast. Coronal and sagittal 3-D reconstructed images were also obtained. Findings: The lumbar vertebral bodies are in satisfactory positioning and alignment. No fractures or dislocatio ns are demonstrated. Intervertebral disc spaces are well-maintained. There is no evidence of facet alba bluxation. The neural foramen appear grossly patent. The spinal canal demonstrates normal caliber and contour without evidence of spinal stenosis. The surrounding soft tissues are within normal limits. Impression: Unremarkable CT examination of the lumbar spine.
[2017-05-31] MEDS ORDERED: PERC5TAB12 PO (22:17)
[2017-05-31] MEDS ORDERED: CYCLOBENZAPRINE 10 MG TAB PO ONE (22:30)
[2017-05-31] MEDS ORDERED: OXYCODONE/APAP 5MG/325MG(BULK FOR ED) 1 TABLET PO ONE (22:30)
[2017-05-31 22:50] VITALS: BP 132/66
== END 2017-05-31 23:01 | disposition home or self-care (01) ==
LOC: EDBD 20:41 → M ED 20:41
DX: S30.0XXA Contusion of lower back and pelvis, initial encounter (principal); S39.012A Strain of muscle, fascia and tendon of lower back, initial encounter; W01.0XXA Fall on same level from slipping, tripping and stumbling without subsequent striking against object, initial encounter; Y92.018 Other place in single-family (private) house as the place of occurrence of the external cause; Y93.89 Activity, other specified; Y99.8 Other external cause status; Z79.899 Other long term (current) drug therapy; Z88.5 Allergy status to narcotic agent; Z88.8 Allergy status to other drugs, medicaments and biological substances; Z91.013 Allergy to seafood; Z91.040 Latex allergy status; F17.210 Nicotine dependence, cigarettes, uncomplicated
CPT/HCPCS: 72131; 96374; 96375; 99283; J2405

== ENCOUNTER 2017-06-22 16:09 | Outpatient (CLI) | payer OTHER ==
[~2017-06-22] VITALS: Ht 167.6 cm; Wt 116.8 kg
[~2017-06-22 16:09] MED LIST changes: +LEVETIRACETAM; +PERC5TAB12 PO; +PRAZ1CAP; +SODIUM CHLORIDE 0.9% INJ 10 ML SYR IV PRN; +SODIUM CHLORIDE 0.9% INJ 10 ML SYR IV SCH; +ZOLO100T
[2017-06-23] MEDS ORDERED: SODIUM CHLORIDE 0.9% INJ 10 ML SYR IV SCH (09:00)
== END 2017-06-22 16:25 | disposition home or self-care (01) ==
LOC: M INFU 16:09
PROVIDERS: ATTEND Family Medicine
DX: I48.91 Unspecified atrial fibrillation (principal); Z87.891 Personal history of nicotine dependence; Z86.79 Personal history of other diseases of the circulatory system; Z97.8 Presence of other specified devices; Z88.8 Allergy status to other drugs, medicaments and biological substances; Z88.5 Allergy status to narcotic agent; Z91.040 Latex allergy status; Z91.013 Allergy to seafood; Z79.899 Other long term (current) drug therapy

== ENCOUNTER → 2017-07-17 | Outpatient (CLI) | payer OTHER ==
[~2017-07-17] MED LIST changes: -SODIUM CHLORIDE 0.9% INJ 10 ML SYR IV PRN; -SODIUM CHLORIDE 0.9% INJ 10 ML SYR IV SCH
--- NOTE | 2017-08-02 00:24 | ECWPNPC ---
PATIENT NAME: OSMANY SAMPSON : 1985 GENDER: FEMALE VISIT DATE: 07/17/2017 DISCHARGE DATE: 07/17/17 1427 VISIT LOCKED DATE TIME: PHYSICIAN: LUMA POOL PHYSICIAN PAGER NO: [phone] RESOURCE: LUMA POOL REASON FOR APPOINTMENT 1. BACK PAIN/PIRIFORMIS HISTORY OF PRESENT ILLNESS HISTORY OF PRESENT ILLNESS: PAIN THE PATIENT DESCRIBES THE PAIN... FALL RISK SCREENING: SCREENING :NO FALLS IN THE PAST YEAR TODAY'S VISIT: NOTES: RATES PAIN LEVEL TODAY 06/13. NOTES INTENSE PAIN IN LEFT HIP WITH RAD DOWN THE LEG. WAS SEEN IN URGENT CARE - NEW HIP XRAY DONE. IS HEARING GRINDING AND POP IN THE LEFT HIP. IS NOW ATTENDING PT AND USING HEAT AND STRETCHES. HAS BEEN TO PT 4 TIMES. NOT USING AN ASSISTIVE DEVICE.SURGERY WAS 05/05/17. CURRENT MEDICATIONS TAKING VALIUM 5 MG TABLET 1 TABLET NEEDED ORALLY TWICE A DAY PRN SPASM MDD=2 TAKING PERCOCET 5-325 MG TABLET 1 TABLET NEEDED ORALLY EVERY 6 HRS PRN PAIN MDD=4 TAKING TIZANIDINE HCL 4 MG TABLET 1 1/2 CAPSULE NEEDED ORALLY EVERY 8 HRS PRN MEDICATION LIST REVIEWED AND RECONCILED WITH THE PATIENT PAST MEDICAL HISTORY HYPERTENSION AFIB RSD FIBROMYALGIA SEIZURE DISORDER DDD ALLERGIES TRAMADOL: RASH,RESP.: ALLERGY NEURONTIN: NAUSEA/VOMITING: ALLERGY TORADOL: ,RESP: ALLERGY MOTRIN: NAUSEA/VOMITING: ALLERGY PENNSAID: RASH: ALLERGY CONTRAST DYE: ANAPHYLAXIS: ALLERGY LATEX: RASH: ALLERGY PICC LINES: RASH: ALLERGY SEAFOODS: ANAPHYLAXIS: ALLERGY SURGICAL GLUE: RASH: ALLERGY BETADINE/IODINE: RASH: ALLERGY ADHESIVE TAPE: RASH: ALLERGY SURGICAL HISTORY 6 LAPAROSCOPIES 2 D&C'S PORT PLACEMENT ABLASION AND LOOP RECORDER GALL BLADDER APPENDECTOMY X2 TEETH REMOVED LAPAROSCOPY,D+C- 02/19/15 REMOVAL OF LOOP [id number] INFECTION,CELLULITIS AND ALLERGIC REACTION TO SURGICAL GLUE 07/03/15 BACK OR SOCIAL HISTORY GENERAL: TOBACCO USE ARE YOU A:FORMER SMOKER HOW LONG HAS IT BEEN SINCE YOU LAST SMOKED?6-12 MONTHS RECREATIONAL DRUG USE DRUG USE?NO JEWISH [id number] NONE LANGUAGE LANGUAGES SPOKEN:DIVEHI LEARNING BARRIERS / SPECIAL NEEDS BARRIERS TO LEARNING?NO HEARING IMPAIRED?NO VISION IMPAIRED?NO COGNITIVELY IMPAIRED?NO READINESS TO LEARN?YES LEARNING PREFERENCES?NO LEARNING CAPABILITIES PRESENT?YES EMOTIONAL BARRIERS?NO SPECIAL DEVICES?NO SALESPERSON SEWING MACHINES NEEDED?NO PAIN CLINIC PFS, CLERGY, PUBLIC HEALTH REFERRALS PFS REFERRAL NEEDED?NO CLERGY REFERRAL NEEDED?NO PUBLIC HEALTH REFERRAL NEEDED?NO WAS THE PROVIDER NOTIFIED OF ANY PERTINENT INFO?NO HAS THE PATIENT BEEN EDUCATED REGARDING HIS/HER PLAN OF CARE?YES HAS THE PATIENT BEEN EDUCATED REGARDING PAIN, THE RISK FOR PAIN, THE IMPORTANCE OF EFFECTIVE PAIN MANAGEMENT, AND THE PAIN ASSESSMENT PROCESS?YES PATIENT: ____. ADVANCE DIRECTIVES HEALTH CARE PROXY?YES NAME OF HCP LILIA SAMPSON CONTACT # FOR HCP [phone] DO YOU HAVE A COPY WITH YOU?NO DO YOU HAVE A DNR?NO WOULD YOU LIKE MORE INFORMATION?NO LIVING WILL?NO WOULD YOU LIKE MORE INFORMATION?NO POWER OF MACHINE CLIPPER?NO WOULD YOU LIKE MORE INFORMATION?NO HOSPITALIZATION/MAJOR DIAGNOSTIC PROCEDURE HOSPITALIZATIONS W SURGERIES ICU-COSTOCHONDRITIS 05/31/14 [facility]-ABD. PAIN AND SWELLING,VOMITING 12/19/14 [facility] ER-BACK INJURY 10/18/15 REVIEW OF SYSTEMS REVIEWED BY: PROVIDER: . CONSTITUTIONAL: ANY CHANGE IN YOUR MEDICAL CONDITION? NO . CHILLS NO . FEVER NO . INFECTION: DO YOU HAVE NEW INFECTIONS? NO . DO YOU HAVE HISTORY OF MRSA? NO . MUSCULOSKELETAL: ANY NEW PATTERNS OF PAIN OR NUMBNESS? NO . GASTROENTEROLOGY: ANY NEW CHANGE IN BOWEL CONTROL? NO . GENITOURINARY: ANY NEW CHANGE IN BLADDER CONTROL? NO . IS THERE A CHANCE YOU COULD BE ? NO . HEMATOLOGY/LYMPH: DO YOU TAKE ANY BLOOD THINNERS? (FOR EXAMPLE- COUMADIN, PLAVIX, AGGRENOX, PLATEL, PRADAXA, OR XARELTO) NO . WHEN WAS YOUR LAST DOSE? DATE: TIME: . NEUROLOGY: HAVE YOU FALLEN IN THE PAST 6 MONTHS? YES. I FALL ALL THE TIME . ANY NEW EXTREMITY NUMBNESS OR WEAKNESS? NO . CARDIOLOGY: DO YOU HAVE A PACEMAKER OR DEFIBRILLATOR? NO . RESPIRATORY: HAVE YOU BEEN SICK IN THE PAST WEEK? NO . FEVER NO . FLU LIKE SYMPTOMS? NO . COUGH NO . INTEGUMENTARY: DO YOU HAVE ANY RASHES OR OPEN SORES? NO . ALLERGIC/IMMUNO: ARE YOU ALLERGIC TO SHELLFISH OR IV DYE? NO . ANY NEW ALLERGIES? NO . PSYCHIATRIC: DO YOU HAVE THOUGHTS OF HURTING YOURSELF OR SOMEONE ELSE? NO . ARE YOU ABUSED, NEGLECTED, OR IN AN UNSAFE ENVIRONMENT? NO . ENDOCRINOLOGY: ARE YOU DIABETIC? NO . OTHER: DO YOU NEED ANY PRESCRIPTIONS? YES . IF YES, PLEASE LIST: VALIUM, PERCOCET . ANY NEW PROBLEMS WITH YOUR MEDICATIONS? NO . WHEN DID YOU LAST EAT? ____ . WHEN DID YOU LAST DRINK? ____ . WHAT DID YOU LAST DRINK? ____ . NAME OF PERSON DRIVING YOU HOME? ____ . DO YOU HAVE ANY OTHER QUESTIONS OR CONCERNS FIRDAY WENT TO URGENT CAREWITH LEFT HIP/LEG PAIN.GAVE CORTIZONE SHOT AND DOING THERAPY WITH STRETCHES, HEAT, MASSAGE. LEFT HIP HURTS SO BAD . VITAL SIGNS WT 220.0 LBS, HT 5'5 1/2", BMI 36.05 INDEX, BP 133/70 MM HG, HR 81 /MIN, RR 16 /MIN, TEMP 98.4 F, OXYGEN SAT % 98%, NA INITIALS TL 1321. EXAMINATION GENERAL EXAMINATION: MUSCULOSKELETAL:EXQUISITE TENDERNESS OVER LEFT TROCANTER. UNABLE TO TOLERATE SLR WITH PAIN AT THE LEFT TROCANTER. TENDER OVER LEFT LSA, SIJ. 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 OTHERS NOTES: NERVE CONDUCTION/EMG LEFT LE. PREVENTIVE MEDICINE REVIEWED PRE PROCEDURE CARE WITH PT EXPRESSING UNDERSTANDING. PROCEDURE CODES FA211 ESTABILISHED PATIENT [facility] CHARGE DISPOSITION & COMMUNICATION FOLLOW UP 26-28 DAYS (REASON: HIP/BACK PAIN) ELECTRONICALLY SIGNED BY MAXIMILIAN ALVARADO ON 08/01/2017 AT 08:47 AM EST DISCLAIMER : THIS IS A VISIT SUMMARY EXTRACTED FROM THE [employer] CHART. IT IS NOT A COPY OF THE [employer] PROGRESS NOTE. MTDD
== END ==
LOC: M PAIN 13:00
PROVIDERS: ATTEND Nurse Practitioner Family
DX: G89.29 Other chronic pain (principal); G57.91 Unspecified mononeuropathy of right lower limb; M25.551 Pain in right hip; M25.552 Pain in left hip; G57.02 Lesion of sciatic nerve, left lower limb; M96.1 Postlaminectomy syndrome, not elsewhere classified; I10 Essential (primary) hypertension; I48.91 Unspecified atrial fibrillation; M79.7 Fibromyalgia; G40.909 Epilepsy, unspecified, not intractable, without status epilepticus; Z79.891 Long term (current) use of opiate analgesic; Z79.899 Other long term (current) drug therapy; Z87.891 Personal history of nicotine dependence; Z88.5 Allergy status to narcotic agent; Z88.6 Allergy status to analgesic agent; Z91.041 Radiographic dye allergy status; Z91.040 Latex allergy status; Z91.013 Allergy to seafood; Z91.048 Other nonmedicinal substance allergy status; Z88.8 Allergy status to other drugs, medicaments and biological substances; Z90.49 Acquired absence of other specified parts of digestive tract

== ENCOUNTER → 2017-07-31 | Outpatient (CLI) | payer OTHER | LOC: M PAIN 11:15 | PROVIDERS: ATTEND Anesthesiology | DX: Z53.29 Procedure and treatment not carried out because of patient's decision for other reasons (principal) ==

== ENCOUNTER 2017-08-17 16:25 | Emergency (ER) | payer OTHER ==
[~2017-08-17] VITALS: Ht 167.6 cm; Wt 101.4 kg
[2017-08-17] MEDS ORDERED: LEXA1TAB2 (16:36)
[2017-08-17] MEDS ORDERED: AMOX500C PO (16:38)
[2017-08-17] MEDS ORDERED: PRED20TA PO (16:38)
[2017-08-17] MEDS ORDERED: MORPHINE 2 MG/ML 1ML SYRINGE IV ONE (17:30)
[2017-08-17] MEDS ORDERED: BENZONATATE 100 MG CAP PO ONE (17:30)
[2017-08-17] MEDS ORDERED: NS 1,000 ML IV ONE (17:30)
[2017-08-17 17:57] LABS: MUCUS, URINE RFX MODERATE (NEGATIVE); SPECIFIC GRAVITY UR AUTO RFX 1.027 (1.002-1.035); SQUAM EPITHELIAL CELL UR AURFX 8 /HPF (0-6)
[2017-08-17] MEDS ORDERED: ONDANSETRON 4MG/2ML VIAL (J2405) IV ONE (18:00)
[2017-08-17 18:21] LABS: BASO % 0.2 % (0.0-1.0); EOS % 0.3 % (0.0-3.0); IMMATURE GRANULOCYTE % 0.3 % (0-0); LYMPH # 4.2 10^3/uL (1.5-4.5); LYMPH % 37.7 % (24.0-44.0); MEAN CORPUSCULAR HEMOGLOBIN 28.3 pg (27.0-33.0); MEAN CORPUSCULAR HGB CONC 33.7 g/dl (32.0-36.5); MONO # 0.7 10^3/uL (0.0-0.8); MONO % 6.6 % (0.0-5.0); NEUTROPHILS % 54.9 % (36.0-66.0); PLATELET COUNT, AUTOMATED 300 10^3/uL (150-450); RED CELL DISTRIBUTION WIDTH 13.7 % (11.5-14.5)
[2017-08-17 18:43] LABS: CONTROL LINE HCG INT CTR LINE PRESENT
[2017-08-17 19:04] LABS: ALBUMIN 3.8 GM/DL (3.2-5.2); ALBUMIN/GLOBULIN RATIO 1.09 (1.00-1.93); ALKALINE PHOSPHATASE 63 U/L (45-117); ALT/SGPT 24 U/L (12-78); AMYLASE 42 U/L (25-115); ANION GAP 7 MEQ/L (8-16); AST/SGOT 14 U/L (7-37); BILIRUBIN,DIRECT < 0.1 MG/DL (0.0-0.2); BILIRUBIN,TOTAL 0.3 MG/DL (0.2-1.0); BLOOD UREA NITROGEN 12 MG/DL (7-18); CALCIUM LEVEL 8.4 MG/DL (8.5-10.1); CARBON DIOXIDE LEVEL 28 MEQ/L (21-32); CHLORIDE LEVEL 107 MEQ/L (98-107); CREATININE FOR GFR 0.79 MG/DL (0.55-1.02); GLOMERULAR FILTRATION RATE > 60.0 (>60); GLUCOSE, FASTING 82 MG/DL (70-105); SODIUM LEVEL 142 MEQ/L (136-145); TOTAL PROTEIN 7.3 GM/DL (6.4-8.2)
[2017-08-17] MEDS ORDERED: diazePAM 5 MG TAB PO ONE (19:15)
[2017-08-17] MEDS ORDERED: POTASSIUM CHLORIDE 10 MEQ SR TABLET PO ONE (19:15)
[2017-08-17] MEDS ORDERED: TESS100C PO (19:17)
[2017-08-17] MEDS ORDERED: ZOFR4TAB3 PO (19:17)
[2017-08-17 19:23] VITALS: BP 150/87
--- NOTE | 2017-08-17 19:34 | REP ---
HISTORY: Right upper quadrant pain. The accompanying frontal view of the chest shows a left-sided subclavian central venous catheter, the tip of which is in the superior vena cava. The lung alatorre are clear and the heart is not enlarged. Supine and upright views of the abdomen show the intestinal gas pattern to be nonspecific. Surgical clips are seen in the right upper quadrant and right lower quadrant. The organ silhouettes in so far as delineated are normal. The osseous structures are within normal limits. IMPRESSION: No evidence of acute disease with findings as described above. Signed by Russ Regalado DO 08/17/2017 07:41 P
== END 2017-08-17 19:48 | disposition home or self-care (01) ==
LOC: M ED 16:25
DX: J20.9 Acute bronchitis, unspecified (principal); E87.6 Hypokalemia; I10 Essential (primary) hypertension; F41.9 Anxiety disorder, unspecified; G43.909 Migraine, unspecified, not intractable, without status migrainosus; R56.9 Unspecified convulsions; G90.50 Complex regional pain syndrome I, unspecified; Z79.899 Other long term (current) drug therapy; Z88.5 Allergy status to narcotic agent; Z88.8 Allergy status to other drugs, medicaments and biological substances; Z91.013 Allergy to seafood; Z91.040 Latex allergy status; Z91.041 Radiographic dye allergy status; F17.210 Nicotine dependence, cigarettes, uncomplicated
CPT/HCPCS: 36415; 74022; 80048; 80076; 81001; 82150; 83690; 84703; 85025; 96374; 96375; 99284; J2405

== ENCOUNTER → 2017-08-17 | Outpatient (CLI) | payer OTHER | LOC: M PAIN 13:15 | DX: G57.91 Unspecified mononeuropathy of right lower limb (principal); G90.50 Complex regional pain syndrome I, unspecified; M25.552 Pain in left hip; M96.1 Postlaminectomy syndrome, not elsewhere classified; I10 Essential (primary) hypertension; R56.9 Unspecified convulsions; Z79.891 Long term (current) use of opiate analgesic; Z79.899 Other long term (current) drug therapy; Z87.891 Personal history of nicotine dependence; Z88.5 Allergy status to narcotic agent; Z88.8 Allergy status to other drugs, medicaments and biological substances; Z91.040 Latex allergy status; Z91.013 Allergy to seafood; Z88.3 Allergy status to other anti-infective agents | CPT/HCPCS: G0463 ==

== ENCOUNTER → 2017-09-22 | Outpatient (CLI) | payer OTHER ==
[~2017-09-22] MED LIST changes: -/DULO30CA OR; -/FENT50PA TD; -ALDA50TA2 PO; -AMBI12.52 PO; -AMIT25TA10 PO; -ASPI1TAB PO; -BENA25TA4 PO; -CIPROFLAXIN PO; -CLON-412 PO; -CLON1TAB PO; -COLA50CA3 PO; +CONRAY-43 43% 50ML VIAL (Q9960) As Ordered; -CORE6.25 PO; -DILT30TA2 PO; -Dronabinol OR; -EPIP0.3I2 INJ; -ERRI0.35 PO; -FLEC1TAB PO; -HYDR-3363 PO; -HYDROCODONE; -IBUP800T OR; -IMIT100T OR; -IMIT6KIT2 SC; -LABE100T2; -LEVETIRACETAM; -LYRI75CA PO; -MARI5CAP PO; -MARINOL PO; -MEDR4PAK PO; -MSCONTIN PO; -NAPR500T; -NAPR500T OR; -NORCOTAB PO; -NORT25CA2 OR; -OXYC10TA2 PO; -OXYC30TA4 PO; -PERC5TAB12 PO; -PERC5TAB8 OR; -PRAZ1CAP; -PRED10TA2 PO; -PREG100CA OR; -PRIL40CA PO; +PROHANCE 279.3MG/ML 5ML VIAL (A9576) As Ordered; -PROP20TA2 OR; -SENN8.6T10 PO; -SOMA350T PO; -TOPA100T12 PO; -TOPAMAX; -TOPI50TA; -TOPI50TA OR; -TYLE-18 PO; -VICO5TAB; -VIST50CA; -ZANA2CAP OR; -ZOFR4SOL PO; -ZOFR8TAB; -ZOLO100T; -ZOLO50TA PO; -[UNRECOGNIZED DRUG - CODE]; -lisinopril PO; -vicodin PO
== END ==
LOC: M RADPRO 07:22
DX: M25.552 Pain in left hip (principal); Z91.041 Radiographic dye allergy status; Z88.5 Allergy status to narcotic agent; Z88.8 Allergy status to other drugs, medicaments and biological substances; Z91.040 Latex allergy status; Z91.013 Allergy to seafood
CPT/HCPCS: 27093

== ENCOUNTER → 2017-09-27 | Outpatient (CLI) | payer OTHER ==
[2017-09-27 09:38] LABS: HEMATOCRIT 38.3 % (36.0-47.0); MEAN CORPUSCULAR HEMOGLOBIN 28.8 pg (27.0-33.0); MEAN CORPUSCULAR HGB CONC 33.9 g/dl (32.0-36.5); MEAN CORPUSCULAR VOLUME 84.7 fl (80.0-96.0); PLATELET COUNT, AUTOMATED 265 10^3/uL (150-450); RED BLOOD COUNT 4.52 10^6/uL (4.00-5.40); RED CELL DISTRIBUTION WIDTH 14.3 % (11.5-14.5); WHITE BLOOD COUNT 16.7 10^3/uL (4.0-10.0)
[2017-09-27 09:51] LABS: APPEARANCE, URINE CLEAR (CLEAR); BACTERIA, URINE AUTO NEGATIVE (NEGATIVE); BILIRUBIN, URINE AUTO NEGATIVE (NEGATIVE); BLOOD, URINE BLOOD NEGATIVE (NEGATIVE); COLOR, URINE YELLOW (YELLOW); GLUCOSE, URINE (UA) AUTO NEGATIVE (NEGATIVE); KETONE, URINE AUTO TRACE mg/dL (NEGATIVE); LEUKOCYTE ESTERASE, URINE AUTO NEGATIVE (NEGATIVE); MUCUS, URINE SMALL (NEGATIVE); NITRITE, URINE AUTO NEGATIVE (NEGATIVE); PROTEIN, URINE AUTO NEGATIVE (NEGATIVE); RBC, URINE AUTO 0 /HPF (0-3); SPECIFIC GRAVITY URINE AUTO 1.024 (1.002-1.035); SQUAMOUS EPITHELIAL CELL UR AU 0 /HPF (0-6); UROBILINOGEN, URINE AUTO 0.2 mg/dL (0.0-2.0); WBC, URINE AUTO 1 /HPF (0-3)
[2017-09-27 10:17] LABS: ALBUMIN 3.8 GM/DL (3.2-5.2); ALBUMIN/GLOBULIN RATIO 1.06 (1.00-1.93); ALKALINE PHOSPHATASE 86 U/L (45-117); ALT/SGPT 22 U/L (12-78); ANION GAP 7 MEQ/L (8-16); AST/SGOT 16 U/L (7-37); BILIRUBIN,TOTAL 0.2 MG/DL (0.2-1.0); BLOOD UREA NITROGEN 9 MG/DL (7-18); CALCIUM LEVEL 8.6 MG/DL (8.5-10.1); CARBON DIOXIDE LEVEL 26 MEQ/L (21-32); CHLORIDE LEVEL 105 MEQ/L (98-107); CHOLESTEROL LEVEL 218 MG/DL (<200); CHOLESTEROL RISK RATIO 2.247 (<5); CREATININE FOR GFR 0.66 MG/DL (0.55-1.02); GLOMERULAR FILTRATION RATE > 60.0 (>60); GLUCOSE, FASTING 130 MG/DL (70-100); HDL CHOLESTEROL 97 MG/DL (>40); NON-HDL-C 121 MG/DL; POTASSIUM SERUM 4.2 MEQ/L (3.5-5.1); SODIUM LEVEL 138 MEQ/L (136-145); THYROID STIMULATING HORMONE 0.292 uIU/ML (0.358-3.740); TOTAL PROTEIN 7.4 GM/DL (6.4-8.2); TRIGLYCERIDES LEVEL 85 MG/DL (<150)
== END ==
LOC: M RADPRO 07:17
DX: M25.552 Pain in left hip (principal); Z91.041 Radiographic dye allergy status; Z88.8 Allergy status to other drugs, medicaments and biological substances; Z91.013 Allergy to seafood; Z88.5 Allergy status to narcotic agent; Z79.899 Other long term (current) drug therapy
CPT/HCPCS: 27093

== ENCOUNTER 2017-09-28 11:36 | Outpatient (CLI) | payer OTHER ==
[2017-09-28] MEDS: SODIUM CHLORIDE 0.9% INJ 10 ML SYR IV (11:45)
== END 2017-09-28 12:00 | disposition home or self-care (01) ==
LOC: M INFU 11:36
DX: I48.91 Unspecified atrial fibrillation (principal); Z88.5 Allergy status to narcotic agent; Z88.8 Allergy status to other drugs, medicaments and biological substances; Z91.013 Allergy to seafood; Z91.041 Radiographic dye allergy status; Z91.040 Latex allergy status; Z79.899 Other long term (current) drug therapy; Z79.891 Long term (current) use of opiate analgesic; Z79.2 Long term (current) use of antibiotics
CPT/HCPCS: 96523

== ENCOUNTER → 2017-10-04 | Outpatient (CLI) | payer OTHER | LOC: M PAIN 13:30 | DX: G57.91 Unspecified mononeuropathy of right lower limb (principal); G90.50 Complex regional pain syndrome I, unspecified; M70.62 Trochanteric bursitis, left hip; M25.552 Pain in left hip; M96.1 Postlaminectomy syndrome, not elsewhere classified; I10 Essential (primary) hypertension; M79.7 Fibromyalgia; R56.9 Unspecified convulsions; F43.10 Post-traumatic stress disorder, unspecified; F17.200 Nicotine dependence, unspecified, uncomplicated; Z79.891 Long term (current) use of opiate analgesic; Z79.899 Other long term (current) drug therapy; Z88.1 Allergy status to other antibiotic agents; Z88.5 Allergy status to narcotic agent; Z88.6 Allergy status to analgesic agent; Z88.8 Allergy status to other drugs, medicaments and biological substances; Z91.040 Latex allergy status; Z91.013 Allergy to seafood; Z91.048 Other nonmedicinal substance allergy status; Z91.041 Radiographic dye allergy status | CPT/HCPCS: G0463 ==

== ENCOUNTER → 2017-10-12 | Outpatient (CLI) | payer OTHER | LOC: M SMT 11:10 | DX: R39.14 Feeling of incomplete bladder emptying (principal); R39.15 Urgency of urination; Z87.442 Personal history of urinary calculi | CPT/HCPCS: 76770 ==

== ENCOUNTER → 2017-10-18 | Outpatient (REF) | payer OTHER ==
[2017-10-18 13:50] LABS: APPEARANCE, URINE CLEAR (CLEAR); BACTERIA, URINE AUTO NEGATIVE (NEGATIVE); BILIRUBIN, URINE AUTO NEGATIVE (NEGATIVE); BLOOD, URINE BLOOD 1+ (NEGATIVE); COLOR, URINE YELLOW (YELLOW); GLUCOSE, URINE (UA) AUTO NEGATIVE (NEGATIVE); KETONE, URINE AUTO NEGATIVE (NEGATIVE); LEUKOCYTE ESTERASE, URINE AUTO NEGATIVE (NEGATIVE); MUCUS, URINE SMALL (NEGATIVE); NITRITE, URINE AUTO NEGATIVE (NEGATIVE); PROTEIN, URINE AUTO NEGATIVE (NEGATIVE); RBC, URINE AUTO 0 /HPF (0-3); SPECIFIC GRAVITY URINE AUTO 1.018 (1.002-1.035); SQUAMOUS EPITHELIAL CELL UR AU 1 /HPF (0-6); UROBILINOGEN, URINE AUTO 0.2 mg/dL (0.0-2.0); WBC, URINE AUTO 0 /HPF (0-3)
== END ==
LOC: M SMT 13:21
DX: R39.15 Urgency of urination (principal)

== ENCOUNTER → 2017-11-06 | Outpatient (CLI) | payer OTHER | LOC: M PAIN 09:15 | DX: M70.62 Trochanteric bursitis, left hip (principal); G90.50 Complex regional pain syndrome I, unspecified; M96.1 Postlaminectomy syndrome, not elsewhere classified; I10 Essential (primary) hypertension; Z79.891 Long term (current) use of opiate analgesic; Z79.899 Other long term (current) drug therapy; Z88.8 Allergy status to other drugs, medicaments and biological substances; Z91.040 Latex allergy status; Z91.041 Radiographic dye allergy status; Z91.048 Other nonmedicinal substance allergy status; Z91.013 Allergy to seafood | CPT/HCPCS: G0463 ==

== ENCOUNTER 2017-11-19 15:50 | Emergency (ER) | payer OTHER ==
[2017-11-19] MEDS: MORPHINE 10 MG/ML 1ML VIAL (J2270) IM (16:38)
[2017-11-19] MEDS: ONDANSETRON 4 MG ORAL DISINTEGRATING TAB (S0181) PO (17:15)
[2017-11-19] MEDS: OXYCODONE/APAP 5MG/325MG(BULK FOR ED) 1 TABLET PO (17:59)
== END 2017-11-19 18:05 | disposition home or self-care (01) ==
LOC: M ED 15:50
DX: S60.221A Contusion of right hand, initial encounter (principal); G90.519 Complex regional pain syndrome I of unspecified upper limb; X58.XXXA Exposure to other specified factors, initial encounter; Y92.099 Unspecified place in other non-institutional residence as the place of occurrence of the external cause; Y93.9 Activity, unspecified; M81.0 Age-related osteoporosis without current pathological fracture; M21.241 Flexion deformity, right finger joints; Z79.899 Other long term (current) drug therapy; Z91.041 Radiographic dye allergy status; Z91.040 Latex allergy status; Z91.013 Allergy to seafood; Z91.89 Other specified personal risk factors, not elsewhere classified; Z88.5 Allergy status to narcotic agent; Z88.6 Allergy status to analgesic agent; Z88.8 Allergy status to other drugs, medicaments and biological substances
CPT/HCPCS: J2270

== ENCOUNTER → 2017-11-23 | Outpatient (CLI) | payer OTHER ==
[2017-11-23 16:59] LABS: ANION GAP 8 MEQ/L (8-16); BLOOD UREA NITROGEN 9 MG/DL (7-18); CALCIUM LEVEL 8.6 MG/DL (8.5-10.1); CARBON DIOXIDE LEVEL 25 MEQ/L (21-32); CHLORIDE LEVEL 108 MEQ/L (98-107); CREATININE FOR GFR 0.75 MG/DL (0.55-1.30); GLOMERULAR FILTRATION RATE > 60.0 (>60); GLUCOSE, FASTING 87 MG/DL (70-100); POTASSIUM SERUM 4.2 MEQ/L (3.5-5.1); SODIUM LEVEL 141 MEQ/L (136-145)
== END ==
LOC: M RAD 15:06
DX: R39.15 Urgency of urination (principal); R35.0 Frequency of micturition; Z87.442 Personal history of urinary calculi; R10.9 Unspecified abdominal pain; Z98.890 Other specified postprocedural states; M96.1 Postlaminectomy syndrome, not elsewhere classified
CPT/HCPCS: 74176

== ENCOUNTER → 2017-11-23 | Outpatient (CLI) | payer OTHER ==
[2017-11-23 17:08] LABS: TOTAL 25(OH) VITAMIN D 10.1 NG/ML (30.0-100.0)
[2017-11-23 17:10] LABS: ALBUMIN 4.1 GM/DL (3.2-5.2); ALBUMIN/GLOBULIN RATIO 1.24 (1.00-1.93); ALKALINE PHOSPHATASE 87 U/L (45-117); ALT/SGPT 40 U/L (12-78); ANION GAP 8 MEQ/L (8-16); AST/SGOT 18 U/L (7-37); BILIRUBIN,TOTAL 0.4 MG/DL (0.2-1.0); BLOOD UREA NITROGEN 9 MG/DL (7-18); CALCIUM LEVEL 8.6 MG/DL (8.5-10.1); CARBON DIOXIDE LEVEL 25 MEQ/L (21-32); CHLORIDE LEVEL 108 MEQ/L (98-107); CHOLESTEROL LEVEL 155 MG/DL (<200); CHOLESTEROL RISK RATIO 2.924 (<5); CREATININE FOR GFR 0.72 MG/DL (0.55-1.30); FERRITIN 15 NG/ML (8-252); GLOMERULAR FILTRATION RATE > 60.0 (>60); GLUCOSE, FASTING 86 MG/DL (70-100); HDL CHOLESTEROL 53 MG/DL (>40); IRON (FE) 90 UG/DL (50-170); NON-HDL-C 102 MG/DL; POTASSIUM SERUM 4.1 MEQ/L (3.5-5.1); SODIUM LEVEL 141 MEQ/L (136-145); THYROID STIMULATING HORMONE 0.484 uIU/ML (0.358-3.740); TOTAL PROTEIN 7.4 GM/DL (6.4-8.2); TRIGLYCERIDES LEVEL 105 MG/DL (<150)
[2017-11-23 17:14] LABS: BASO # 0.1 10^3/uL (0.0-0.2); BASO % 0.6 % (0.0-1.0); EOS # 0.5 10^3/uL (0.0-0.50); EOS % 5.5 % (0.0-3.0); HEMATOCRIT 39.3 % (36.0-47.0); HEMOGLOBIN 13.2 g/dl (12.0-16.0); IMMATURE GRANULOCYTE % 0.2 % (0-3.0); LYMPH # 2.5 10^3/uL (1.5-4.5); LYMPH % 25.8 % (24.0-44.0); MEAN CORPUSCULAR HGB CONC 33.6 g/dl (32.0-36.5); MEAN CORPUSCULAR VOLUME 86.4 fl (80.0-96.0); MONO # 0.6 10^3/uL (0.0-0.8); MONO % 6.1 % (0.0-5.0); NEUTROPHILS # 5.9 10^3/uL (1.8-7.7); NEUTROPHILS % 61.8 % (36.0-66.0); PLATELET COUNT, AUTOMATED 217 10^3/uL (150-450); RED BLOOD COUNT 4.55 10^6/uL (4.00-5.40); WHITE BLOOD COUNT 9.5 10^3/uL (4.0-10.0)
[2017-11-23 19:35] LABS: ERYTHROCYTE SEDIMENTATION RATE 9 mm/hr (0-20)
[2017-11-24 10:43] LABS: HEPATITIS C VIRUS ABY INDEX 0.2 INDEX (<0.8); HIV 1&2 SCREEN CENTAUR NEGATIVE (NEGATIVE)
== END ==
LOC: M LAB 15:37
DX: Z13.9 Encounter for screening, unspecified (principal); R53.82 Chronic fatigue, unspecified
CPT/HCPCS: 83540

== ENCOUNTER → 2017-11-23 | Outpatient (CLI) | payer OTHER ==
[2017-11-23 18:41] LABS: COMPLEMENT C3 151 MG/DL (90-180); COMPLEMENT C4 27.3 MG/DL (10-40); IMMUNOGLOBULIN G 883 MG/DL (681-1648); IMMUNOGLOBULIN M 149 MG/DL (40-230)
[2017-11-23 18:54] LABS: IMMUNOGLOBULIN E 4.9 IU/ML (<100)
== END ==
LOC: M LAB 15:35
DX: J32.0 Chronic maxillary sinusitis (principal); Z87.891 Personal history of nicotine dependence; H10.45 Other chronic allergic conjunctivitis; J30.1 Allergic rhinitis due to pollen; Z91.013 Allergy to seafood
CPT/HCPCS: 82785

== ENCOUNTER → 2017-11-24 | Outpatient (REF) | payer OTHER ==
[2017-11-24 18:20] LABS: CHLAMYDIA DNA AMPLIFICATION NEGATIVE (NEGATIVE); GC DNA AMPLIFICATION NEGATIVE (NEGATIVE)
== END ==
LOC: M LAB REF 16:34
DX: Z13.9 Encounter for screening, unspecified (principal)

== ENCOUNTER → 2017-12-19 | Outpatient (CLI) | payer OTHER ==
[~2017-12-19] MED LIST changes: +BUPIVACAINE HCL 0.25% 30 ML VIAL As Ordered; -CONRAY-43 43% 50ML VIAL (Q9960) As Ordered; +ISOVUE-M 300 61% 15ML VIAL (Q9967) As Ordered; +LIDOCAINE 1% SDV INJ 30 ML VIAL As Ordered; -PROHANCE 279.3MG/ML 5ML VIAL (A9576) As Ordered; +TRIAMCINOLONE ACETONIDE SUSP 40 MG/ML VIAL (J3301) As Ordered; +diazePAM 5 MG TAB As Ordered; +diphenhydrAMINE 25 MG CAP As Ordered; +oxyCODONE 5MG TAB As Ordered
[2017-12-19 13:35] LABS: BEDSIDE GLUCOSE 71 MG/DL (70-105)
== END ==
LOC: M PAIN 10:00
DX: M70.62 Trochanteric bursitis, left hip (principal); I10 Essential (primary) hypertension; M79.7 Fibromyalgia; R56.9 Unspecified convulsions; F43.10 Post-traumatic stress disorder, unspecified; Z79.891 Long term (current) use of opiate analgesic; Z79.899 Other long term (current) drug therapy; Z88.1 Allergy status to other antibiotic agents; Z88.5 Allergy status to narcotic agent; Z88.6 Allergy status to analgesic agent; Z88.8 Allergy status to other drugs, medicaments and biological substances; Z91.041 Radiographic dye allergy status; Z91.040 Latex allergy status; Z91.013 Allergy to seafood; Z91.09 Other allergy status, other than to drugs and biological substances; Z86.79 Personal history of other diseases of the circulatory system; Z87.891 Personal history of nicotine dependence
CPT/HCPCS: J3301

== ENCOUNTER → 2018-01-09 | Outpatient (CLI) | payer OTHER | LOC: M RAD 15:50 | DX: M96.1 Postlaminectomy syndrome, not elsewhere classified (principal) | CPT/HCPCS: 72114 ==

== ENCOUNTER → 2018-01-09 | Outpatient (CLI) | payer OTHER | LOC: M PAIN 14:00 | DX: M96.1 Postlaminectomy syndrome, not elsewhere classified (principal); M70.62 Trochanteric bursitis, left hip; G57.91 Unspecified mononeuropathy of right lower limb; I10 Essential (primary) hypertension; M79.7 Fibromyalgia; R56.9 Unspecified convulsions; F43.10 Post-traumatic stress disorder, unspecified; Z79.899 Other long term (current) drug therapy; Z88.1 Allergy status to other antibiotic agents; Z88.5 Allergy status to narcotic agent; Z88.6 Allergy status to analgesic agent; Z88.8 Allergy status to other drugs, medicaments and biological substances; Z91.041 Radiographic dye allergy status; Z91.040 Latex allergy status; Z91.09 Other allergy status, other than to drugs and biological substances; Z91.013 Allergy to seafood; Z87.891 Personal history of nicotine dependence | CPT/HCPCS: G0463 ==

== ENCOUNTER → 2018-01-16 | Outpatient (REF) | payer OTHER ==
[2018-01-16 18:09] LABS: BACTERIA, URINE AUTO 1+ (NEGATIVE); MUCUS, URINE SMALL (NEGATIVE); RBC, URINE AUTO 1 /HPF (0-3); SQUAMOUS EPITHELIAL CELL UR AU 27 /HPF (0-6); WBC, URINE AUTO 6 /HPF (0-3)
== END ==
LOC: M SMT 16:44
DX: R35.0 Frequency of micturition (principal)

== ENCOUNTER → 2018-03-22 | Outpatient (CLI) | payer OTHER ==
[2018-03-22 18:14] LABS: GLOMERULAR FILTRATION RATE > 60.0 (>60)
[2018-03-22 18:14] LABS: BLOOD UREA NITROGEN 5 MG/DL (7-18)
== END ==
LOC: M SMT 14:06
DX: Z48.89 Encounter for other specified surgical aftercare (principal)
CPT/HCPCS: 82565

== ENCOUNTER → 2018-03-22 | Outpatient (CLI) | payer OTHER | LOC: M SMT 13:58 | DX: R05 Cough (principal) | CPT/HCPCS: 87116 ==

== ENCOUNTER → 2018-03-26 | Outpatient (REF) | payer OTHER | LOC: M LAB REF 19:16 | DX: L03.115 Cellulitis of right lower limb (principal) ==

== ENCOUNTER → 2018-04-04 | Outpatient (CLI) | payer OTHER | LOC: M PAIN 14:15 | DX: M96.1 Postlaminectomy syndrome, not elsewhere classified (principal); M70.62 Trochanteric bursitis, left hip; I10 Essential (primary) hypertension; R56.9 Unspecified convulsions; F43.10 Post-traumatic stress disorder, unspecified; F17.290 Nicotine dependence, other tobacco product, uncomplicated; Z79.899 Other long term (current) drug therapy; Z88.1 Allergy status to other antibiotic agents; Z88.5 Allergy status to narcotic agent; Z88.6 Allergy status to analgesic agent; Z88.8 Allergy status to other drugs, medicaments and biological substances; Z91.013 Allergy to seafood; Z91.041 Radiographic dye allergy status; Z91.09 Other allergy status, other than to drugs and biological substances; Z86.79 Personal history of other diseases of the circulatory system; Z91.81 History of falling | CPT/HCPCS: G0463 ==

== ENCOUNTER → 2018-04-17 | Outpatient (CLI) | payer OTHER ==
[2018-04-17 18:08] LABS: BASO % 0.5 % (0.0-1.0); EOS # 0.3 10^3/uL (0.0-0.50); EOS % 4.3 % (0.0-3.0); HEMATOCRIT 36.8 % (36.0-47.0); IMMATURE GRANULOCYTE % 0.3 % (0-3.0); LYMPH # 3.1 10^3/uL (1.5-4.5); LYMPH % 42.4 % (24.0-44.0); MEAN CORPUSCULAR HEMOGLOBIN 28.2 pg (27.0-33.0); MEAN CORPUSCULAR HGB CONC 32.6 g/dl (32.0-36.5); MEAN CORPUSCULAR VOLUME 86.6 fl (80.0-96.0); MONO # 0.5 10^3/uL (0.0-0.8); MONO % 6.3 % (0.0-5.0); NEUTROPHILS # 3.4 10^3/uL (1.8-7.7); NEUTROPHILS % 46.2 % (36.0-66.0); PLATELET COUNT, AUTOMATED 266 10^3/uL (150-450); RED BLOOD COUNT 4.25 10^6/uL (4.00-5.40); RED CELL DISTRIBUTION WIDTH 12.6 % (11.5-14.5); WHITE BLOOD COUNT 7.3 10^3/uL (4.0-10.0)
[2018-04-20 00:06] LABS: Lyme Disease IgG/IgM Antibodie <0.91 ISR (0.00-0.90); Lyme Disease IgM Ab Quantitati <0.80 index (0.00-0.79)
== END ==
LOC: M SMT 15:29
DX: L03.115 Cellulitis of right lower limb (principal)
CPT/HCPCS: 85025

== ENCOUNTER → 2018-04-17 | Outpatient (CLI) | payer OTHER ==
[2018-04-17 22:17] LABS: ANION GAP 11 MEQ/L (8-16); BLOOD UREA NITROGEN 6 MG/DL (7-18); CALCIUM LEVEL 8.7 MG/DL (8.5-10.1); CARBON DIOXIDE LEVEL 25 MEQ/L (21-32); CHLORIDE LEVEL 107 MEQ/L (98-107); CREATININE FOR GFR 0.68 MG/DL (0.55-1.30); GLOMERULAR FILTRATION RATE > 60.0 (>60); GLUCOSE, FASTING 81 MG/DL (70-100); POTASSIUM SERUM 4.1 MEQ/L (3.5-5.1); SODIUM LEVEL 143 MEQ/L (136-145)
== END ==
LOC: M SMT 15:33
DX: G90.50 Complex regional pain syndrome I, unspecified (principal)

== ENCOUNTER → 2018-04-17 | Outpatient (CLI) | payer OTHER ==
[2018-04-17 18:26] LABS: ALBUMIN 3.5 GM/DL (3.2-5.2); ALBUMIN/GLOBULIN RATIO 0.95 (1.00-1.93); ALKALINE PHOSPHATASE 102 U/L (45-117); ALT/SGPT 16 U/L (12-78); ANION GAP 9 MEQ/L (8-16); AST/SGOT 15 U/L (7-37); BILIRUBIN,TOTAL 0.3 MG/DL (0.2-1.0); BLOOD UREA NITROGEN 6 MG/DL (7-18); CALCIUM LEVEL 8.7 MG/DL (8.5-10.1); CARBON DIOXIDE LEVEL 26 MEQ/L (21-32); CHLORIDE LEVEL 107 MEQ/L (98-107); CREATININE FOR GFR 0.64 MG/DL (0.55-1.30); FERRITIN 14 NG/ML (8-252); GLOMERULAR FILTRATION RATE > 60.0 (>60); GLUCOSE, FASTING 79 MG/DL (70-100); IRON (FE) 59 UG/DL (50-170); POTASSIUM SERUM 4.1 MEQ/L (3.5-5.1); SODIUM LEVEL 142 MEQ/L (136-145); TOTAL PROTEIN 7.2 GM/DL (6.4-8.2)
[2018-04-17 20:56] LABS: HEMATOCRIT 37.3 % (36.0-47.0); HEMOGLOBIN 11.9 g/dl (12.0-15.5); MEAN CORPUSCULAR HEMOGLOBIN 27.9 pg (27.0-33.0); MEAN CORPUSCULAR HGB CONC 31.9 g/dl (32.0-36.5); MEAN CORPUSCULAR VOLUME 87.6 fl (80.0-96.0); PLATELET COUNT, AUTOMATED 264 10^3/uL (150-450); RED BLOOD COUNT 4.26 10^6/uL (4.00-5.40); RED CELL DISTRIBUTION WIDTH 12.6 % (11.5-14.5); WHITE BLOOD COUNT 7.2 10^3/uL (4.0-10.0)
== END ==
LOC: M SMT 15:25
DX: R53.83 Other fatigue (principal); R11.10 Vomiting, unspecified
CPT/HCPCS: 83540

== ENCOUNTER 2018-04-22 14:55 | Emergency (ER) | payer OTHER ==
[2018-04-22 16:02] LABS: BASO # 0.1 10^3/uL (0.0-0.2); BASO % 0.6 % (0.0-1.0); EOS # 0.1 10^3/uL (0.0-0.50); EOS % 1.4 % (0.0-3.0); HEMATOCRIT 40.2 % (36.0-47.0); HEMOGLOBIN 13.3 g/dl (12.0-15.5); IMMATURE GRANULOCYTE % 0.1 % (0-3.0); LYMPH # 2.5 10^3/uL (1.5-4.5); LYMPH % 29.9 % (24.0-44.0); MEAN CORPUSCULAR HEMOGLOBIN 28.2 pg (27.0-33.0); MEAN CORPUSCULAR HGB CONC 33.1 g/dl (32.0-36.5); MEAN CORPUSCULAR VOLUME 85.2 fl (80.0-96.0); MONO # 0.4 10^3/uL (0.0-0.8); MONO % 4.9 % (0.0-5.0); NEUTROPHILS # 5.3 10^3/uL (1.8-7.7); NEUTROPHILS % 63.1 % (36.0-66.0); PLATELET COUNT, AUTOMATED 261 10^3/uL (150-450); RED BLOOD COUNT 4.72 10^6/uL (4.00-5.40); RED CELL DISTRIBUTION WIDTH 12.3 % (11.5-14.5); WHITE BLOOD COUNT 8.3 10^3/uL (4.0-10.0)
[2018-04-22] MEDS: MORPHINE 10 MG/ML 1ML VIAL (J2270) IM (16:03)
[2018-04-22 16:07] LABS: APPEARANCE, URINE CLOUDY (CLEAR); BACTERIA, URINE AUTO 1+ (NEGATIVE); BILIRUBIN, URINE AUTO NEGATIVE (NEGATIVE); BLOOD, URINE BLOOD NEGATIVE (NEGATIVE); COLOR, URINE YELLOW (YELLOW); GLUCOSE, URINE (UA) AUTO NEGATIVE (NEGATIVE); KETONE, URINE AUTO NEGATIVE (NEGATIVE); LEUKOCYTE ESTERASE, URINE AUTO TRACE (NEGATIVE); MUCUS, URINE MODERATE (NEGATIVE); NITRITE, URINE AUTO NEGATIVE (NEGATIVE); PROTEIN, URINE AUTO NEGATIVE (NEGATIVE); RBC, URINE AUTO 4 /HPF (0-3); SPECIFIC GRAVITY URINE AUTO 1.018 (1.002-1.035); SQUAMOUS EPITHELIAL CELL UR AU 45 /HPF (0-6); UROBILINOGEN, URINE AUTO 0.2 mg/dL (0.0-2.0); WBC, URINE AUTO 8 /HPF (0-3)
[2018-04-22 16:12] LABS: CONTROL LINE HCG INT CTR LINE PRESENT; HCG, SERUM QUALITATIVE NEGATIVE (NEGATIVE)
[2018-04-22 16:19] LABS: ALBUMIN 3.7 GM/DL (3.2-5.2); ALKALINE PHOSPHATASE 100 U/L (45-117); ALT/SGPT 16 U/L (12-78); ANION GAP 7 MEQ/L (8-16); AST/SGOT 12 U/L (7-37); BILIRUBIN,DIRECT < 0.1 MG/DL (0.0-0.2); BILIRUBIN,TOTAL 0.4 MG/DL (0.2-1.0); BLOOD UREA NITROGEN 6 MG/DL (7-18); CALCIUM LEVEL 8.9 MG/DL (8.5-10.1); CARBON DIOXIDE LEVEL 27 MEQ/L (21-32); CHLORIDE LEVEL 106 MEQ/L (98-107); CREATININE FOR GFR 0.78 MG/DL (0.55-1.30); GLOMERULAR FILTRATION RATE > 60.0 (>60); GLUCOSE, FASTING 95 MG/DL (70-100); POTASSIUM SERUM 3.7 MEQ/L (3.5-5.1); SODIUM LEVEL 140 MEQ/L (136-145); TOTAL PROTEIN 8.3 GM/DL (6.4-8.2)
[2018-04-22] MEDS: PERCOCET 5MG/325MG TAB PO (16:45)
== END 2018-04-22 17:49 | disposition home or self-care (01) ==
LOC: M ED 14:55
DX: N83.292 Other ovarian cyst, left side (principal); G43.909 Migraine, unspecified, not intractable, without status migrainosus; I10 Essential (primary) hypertension; I48.91 Unspecified atrial fibrillation; J45.909 Unspecified asthma, uncomplicated; G47.30 Sleep apnea, unspecified; Z87.442 Personal history of urinary calculi; N93.8 Other specified abnormal uterine and vaginal bleeding; M54.9 Dorsalgia, unspecified; E16.2 Hypoglycemia, unspecified; F41.9 Anxiety disorder, unspecified; Z79.899 Other long term (current) drug therapy; Z88.8 Allergy status to other drugs, medicaments and biological substances; Z88.5 Allergy status to narcotic agent; Z88.6 Allergy status to analgesic agent; Z91.89 Other specified personal risk factors, not elsewhere classified; Z91.013 Allergy to seafood; Z91.040 Latex allergy status; Z91.041 Radiographic dye allergy status
CPT/HCPCS: J2270

== ENCOUNTER 2018-05-22 20:06 | Emergency (ER) | payer OTHER ==
[2018-05-22] MEDS: HYDROMORPHONE HCL 0.5 MG/ 0.5 ML SYRINGE (J1170 PER 1) IV (21:51)
[2018-05-22 22:23] LABS: BASO # 0.1 10^3/uL (0.0-0.2); BASO % 0.4 % (0.0-1.0); EOS # 0.1 10^3/uL (0.0-0.50); EOS % 1.1 % (0.0-3.0); HEMATOCRIT 36.7 % (36.0-47.0); IMMATURE GRANULOCYTE % 0.3 % (0-3.0); LYMPH # 2.6 10^3/uL (1.5-4.5); LYMPH % 20.2 % (24.0-44.0); MEAN CORPUSCULAR HEMOGLOBIN 27.6 pg (27.0-33.0); MEAN CORPUSCULAR HGB CONC 32.7 g/dl (32.0-36.5); MEAN CORPUSCULAR VOLUME 84.4 fl (80.0-96.0); MONO # 0.6 10^3/uL (0.0-0.8); MONO % 4.7 % (0.0-5.0); NEUTROPHILS # 9.5 10^3/uL (1.8-7.7); NEUTROPHILS % 73.3 % (36.0-66.0); PLATELET COUNT, AUTOMATED 278 10^3/uL (150-450); RED BLOOD COUNT 4.35 10^6/uL (4.00-5.40); RED CELL DISTRIBUTION WIDTH 13.2 % (11.5-14.5); WHITE BLOOD COUNT 12.9 10^3/uL (4.0-10.0)
[2018-05-22 22:43] LABS: CONTROL LINE HCG INT CTR LINE PRESENT; HCG, SERUM QUALITATIVE NEGATIVE (NEGATIVE)
[2018-05-22 23:22] LABS: ALBUMIN 3.7 GM/DL (3.2-5.2); ALBUMIN/GLOBULIN RATIO 1.03 (1.00-1.93); ALKALINE PHOSPHATASE 114 U/L (45-117); ALT/SGPT 18 U/L (12-78); ANION GAP 8 MEQ/L (8-16); AST/SGOT 18 U/L (7-37); BILIRUBIN,DIRECT < 0.1 MG/DL (0.0-0.2); BILIRUBIN,TOTAL 0.2 MG/DL (0.2-1.0); BLOOD UREA NITROGEN 7 MG/DL (7-18); CALCIUM LEVEL 8.8 MG/DL (8.5-10.1); CARBON DIOXIDE LEVEL 28 MEQ/L (21-32); CHLORIDE LEVEL 108 MEQ/L (98-107); CPK CREATINE PHOSPHOKINASE 118 U/L (26-192); CREATININE FOR GFR 0.87 MG/DL (0.55-1.30); GLOMERULAR FILTRATION RATE > 60.0 (>60); GLUCOSE, FASTING 93 MG/DL (70-100); MB/CK RELATIVE INDEX 1.69 (< OR =4); SODIUM LEVEL 144 MEQ/L (136-145); THYROID STIMULATING HORMONE 0.539 uIU/ML (0.358-3.740); TOTAL PROTEIN 7.3 GM/DL (6.4-8.2); TROPONIN I < 0.02 NG/ML (< 0.10)
[2018-05-23] MEDS: levETIRAcetam INJection 1,000 MG in D5W 100 ML IV (00:09)
[2018-05-23] MEDS: HYDROMORPHONE HCL 0.5 MG/ 0.5 ML SYRINGE (J1170 PER 1) IV (00:10)
[2018-05-23] MEDS: methylPREDNISolone INJ 125 MG/2 ML VIAL (J2930) IV (00:30)
== END 2018-05-23 01:24 | disposition home or self-care (01) ==
LOC: M ED 05-23 01:24
DX: G40.209 Localization-related (focal) (partial) symptomatic epilepsy and epileptic syndromes with complex partial seizures, not intractable, without status epilepticus (principal)
CPT/HCPCS: J1953

== ENCOUNTER 2018-06-29 18:17 | Emergency (ER) | payer OTHER ==
[2018-06-29] MEDS: NS 1,000 ML IV (20:03)
[2018-06-29] MEDS: ONDANSETRON 4MG/2ML VIAL (J2405) IV (20:03)
[2018-06-29] MEDS: HYDROMORPHONE HCL 0.5 MG/ 0.5 ML SYRINGE (J1170 PER 1) IV ×3 (20:04→21:58)
[2018-06-29 20:12] LABS: BASO # 0.1 10^3/uL (0.0-0.2); BASO % 0.7 % (0.0-1.0); EOS # 0.2 10^3/uL (0.0-0.50); EOS % 2.5 % (0.0-3.0); HEMATOCRIT 40.5 % (36.0-47.0); HEMOGLOBIN 13.4 g/dl (12.0-15.5); IMMATURE GRANULOCYTE % 0.1 % (0-3.0); LYMPH # 3.7 10^3/uL (1.5-4.5); LYMPH % 45.9 % (24.0-44.0); MEAN CORPUSCULAR HEMOGLOBIN 27.4 pg (27.0-33.0); MEAN CORPUSCULAR HGB CONC 33.1 g/dl (32.0-36.5); MEAN CORPUSCULAR VOLUME 82.8 fl (80.0-96.0); MONO # 0.5 10^3/uL (0.0-0.8); MONO % 6.5 % (0.0-5.0); NEUTROPHILS # 3.6 10^3/uL (1.8-7.7); NEUTROPHILS % 44.3 % (36.0-66.0); PLATELET COUNT, AUTOMATED 255 10^3/uL (150-450); RED BLOOD COUNT 4.89 10^6/uL (4.00-5.40); RED CELL DISTRIBUTION WIDTH 13.9 % (11.5-14.5); WHITE BLOOD COUNT 8.1 10^3/uL (4.0-10.0)
[2018-06-29 20:26] LABS: INR 1.03; PROTHROMBIN TIME 13.6 SECONDS (12.1-14.4)
[2018-06-29 20:27] LABS: PARTIAL THROMBOPLASTIN TIME 30.7 SECONDS (25.4-37.6)
[2018-06-29 20:34] LABS: ANION GAP 9 MEQ/L (8-16); BLOOD UREA NITROGEN 11 MG/DL (7-18); CALCIUM LEVEL 8.8 MG/DL (8.5-10.1); CARBON DIOXIDE LEVEL 25 MEQ/L (21-32); CHLORIDE LEVEL 109 MEQ/L (98-107); CREATININE FOR GFR 0.83 MG/DL (0.55-1.30); GLOMERULAR FILTRATION RATE > 60.0 (>60); GLUCOSE, FASTING 80 MG/DL (70-100); POTASSIUM SERUM 3.8 MEQ/L (3.5-5.1); SODIUM LEVEL 143 MEQ/L (136-145)
[2018-06-29] MEDS: PROMETHAZINE INJ 25 MG/ML VIAL (J2550) IV (21:21)
== END 2018-06-29 22:36 | disposition short-term general hospital (02) ==
LOC: M ED 18:17
DX: G83.4 Cauda equina syndrome (principal); G90.50 Complex regional pain syndrome I, unspecified; R56.9 Unspecified convulsions; Z77.098 Contact with and (suspected) exposure to other hazardous, chiefly nonmedicinal, chemicals; Z91.041 Radiographic dye allergy status; Z88.3 Allergy status to other anti-infective agents; Z91.048 Other nonmedicinal substance allergy status; Z88.8 Allergy status to other drugs, medicaments and biological substances; Z91.013 Allergy to seafood; Z91.040 Latex allergy status; Z79.899 Other long term (current) drug therapy; Z79.891 Long term (current) use of opiate analgesic
CPT/HCPCS: J2405

== ENCOUNTER → 2018-07-06 | Outpatient (CLI) | payer OTHER | LOC: M PAIN 10:45 | DX: M96.1 Postlaminectomy syndrome, not elsewhere classified (principal); M54.16 Radiculopathy, lumbar region; M21.372 Foot drop, left foot; M79.672 Pain in left foot; I10 Essential (primary) hypertension; I48.91 Unspecified atrial fibrillation; M79.7 Fibromyalgia; G40.909 Epilepsy, unspecified, not intractable, without status epilepticus; F43.10 Post-traumatic stress disorder, unspecified; F17.290 Nicotine dependence, other tobacco product, uncomplicated; Z79.899 Other long term (current) drug therapy; Z88.5 Allergy status to narcotic agent; Z88.8 Allergy status to other drugs, medicaments and biological substances; Z91.040 Latex allergy status; Z91.013 Allergy to seafood; Z91.048 Other nonmedicinal substance allergy status; Z91.041 Radiographic dye allergy status | CPT/HCPCS: G0463 ==

== ENCOUNTER 2018-08-17 18:02 | Emergency (ER) | payer OTHER ==
[2018-08-17 18:53] LABS: HEMATOCRIT 37.2 % (36.0-47.0); HEMOGLOBIN 12.3 g/dl (12.0-15.5); MEAN CORPUSCULAR HEMOGLOBIN 27.3 pg (27.0-33.0); MEAN CORPUSCULAR HGB CONC 33.1 g/dl (32.0-36.5); MEAN CORPUSCULAR VOLUME 82.7 fl (80.0-96.0); PLATELET COUNT, AUTOMATED 223 10^3/uL (150-450); RED CELL DISTRIBUTION WIDTH 13.8 % (11.5-14.5); WHITE BLOOD COUNT 7.3 10^3/uL (4.0-10.0)
[2018-08-17 19:28] LABS: ANION GAP 7 MEQ/L (8-16); BLOOD UREA NITROGEN 8 MG/DL (7-18); C REACTIVE PROTEIN QUANTITATIV < 0.30 MG/DL (0.00-0.30); CALCIUM LEVEL 8.6 MG/DL (8.5-10.1); CARBON DIOXIDE LEVEL 27 MEQ/L (21-32); CHLORIDE LEVEL 108 MEQ/L (98-107); CREATININE FOR GFR 0.83 MG/DL (0.55-1.30); GLOMERULAR FILTRATION RATE > 60.0 (>60); GLUCOSE, FASTING 104 MG/DL (70-100); POTASSIUM SERUM 3.9 MEQ/L (3.5-5.1); SODIUM LEVEL 142 MEQ/L (136-145)
[2018-08-17] MEDS: MORPHINE 4 MG/ML 1ML VIAL/SYRINGE (J2270) IV (19:45)
[2018-08-17] MEDS: LORazepam 2 MG/ML VIAL (J2060) IV (19:45)
== END 2018-08-17 20:57 | disposition home or self-care (01) ==
LOC: M ED 18:02
DX: G89.29 Other chronic pain (principal); M54.5 Low back pain; Z79.899 Other long term (current) drug therapy; Z88.8 Allergy status to other drugs, medicaments and biological substances; Z91.013 Allergy to seafood; Z91.040 Latex allergy status; Z91.041 Radiographic dye allergy status; Z87.891 Personal history of nicotine dependence
CPT/HCPCS: J2270

== ENCOUNTER → 2018-08-17 | Outpatient (CLI) | payer OTHER ==
[~2018-08-17] MED LIST changes: +/DULO30CA OR; +/FENT50PA TD; +ALDA50TA2 PO; +AMBI12.52 PO; +AMIT25TA10 PO; +AMOX500C PO; +ASPI1TAB PO; +BACL10TA2; +BENA25TA4 PO; -BUPIVACAINE HCL 0.25% 30 ML VIAL As Ordered; +CETI10TA; +CIPROFLAXIN PO; +CLON-412 PO; +CLON1TAB PO; +COLA50CA3 PO; +CORE12.5 PO; +CORE6.25 PO; +DIAZ5TAB PO; +DILT1TAB12; +DILT30TA2 PO; +Dronabinol OR; +EPIP0.3I2 INJ; +ERRI0.35 PO; +FLEC1TAB PO; +FLUT1INH3; +HYDR-3363 PO; +HYDROCODONE; +IBUP800T OR; +IMIT100T OR; +IMIT6KIT2 SC; -ISOVUE-M 300 61% 15ML VIAL (Q9967) As Ordered; +KEPP10002 PO; +KEPP1TAB PO; +LABE100T2; +LEVETIRACETAM; +LEXA1TAB2; -LIDOCAINE 1% SDV INJ 30 ML VIAL As Ordered; +LYRI75CA PO; +MARI5CAP PO; +MARINOL PO; +MEDR10TA PO; +MEDR4PAK PO; +MORP15TA2; +MSCONTIN PO; +NAPR500T; +NAPR500T OR; +NORCOTAB PO; +NORT25CA2 OR; +OXYC10TA2 PO; +OXYC30TA4 PO; +PERC5TAB12 PO; +PERC5TAB8 OR; +PRAZ1CAP; +PRAZ5CAP PO; +PRED10TA2 PO; +PRED20TA PO; +PREG100CA OR; +PRIL40CA PO; +PROP20TA2 OR; +SENN8.6T10 PO; +SERO1TAB; +SOMA350T PO; +TESS100C PO; +TIZA4CAP; +TOPA100T12 PO; +TOPAMAX; +TOPI50TA; +TOPI50TA OR; -TRIAMCINOLONE ACETONIDE SUSP 40 MG/ML VIAL (J3301) As Ordered; +TYLE-18 PO; +VENTAER; +VICO5TAB; +VIST50CA; +ZANA2CAP OR; +ZOFR4SOL PO; +ZOFR4TAB14 PO; +ZOFR8TAB; +ZOLO100T; +ZOLO50TA PO; +[UNRECOGNIZED DRUG - CODE]; -diazePAM 5 MG TAB As Ordered; -diphenhydrAMINE 25 MG CAP As Ordered; +lisinopril PO; -oxyCODONE 5MG TAB As Ordered; +vicodin PO
--- NOTE | 2018-09-05 00:13 | ECWPNPC ---
PATIENT NAME: OSMANY SAMPSON : 1985 GENDER: FEMALE VISIT DATE: 08/17/2018 DISCHARGE DATE: 08/17/18 1211 VISIT LOCKED DATE TIME: PHYSICIAN: KAREN MERRILL MD RESOURCE: KAREN MERRILL MD REASON FOR APPOINTMENT 1. BACK F/U HISTORY OF PRESENT ILLNESS DEPRESSION SCREENING: PHQ-2 IN LAST TWO WEEKS HAVE YOU BEEN BOTHERED BY LITTLE INTEREST OR PLEASURE IN DOING THINGSNO FEELING DOWN, DEPRESSED, OR HOPELESSNO HISTORY OF PRESENT ILLNESS: PAIN THE PATIENT DESCRIBES THE PAIN... 32 YEAR OLD FEMALE PATIENT WITH A HISTORY OF CHRONIC LOW BACK AND LEG PAIN. PATIENT DESCRIBES THE PAIN ACHING, BURNING, SHARP, STABBING, TENDER, SORE, SHOOTING, AND HAVING IT ALL THE TIME WITH A PAIN SCORE OF 10/10. THE PATIENT STATES THAT SHE RECENTLY HAD SURGERY DONE BACK IN JANUARY. THE PATIENT IS CURRENTLY TAKING OXYCODONE AND MORPHINE TO FINGERNAIL SCULPTURER IN PAIN RELIEF. THE PATIENT DENIES ANY ABUSE AND STATES THAT SHE USES THE MEDICATION FOR PAIN PURPOSES ONLY. THE PATIENT STATES THAT SHE HAS BEEN EXPERIENCING CHILLS, SICKNESS AND FEVERS. PATIENT DENIES UNEXPLAINABLE WEIGHT LOSS AND NEW CHANGES ON HER URINARY OR BOWEL CONTROL. FALL RISK SCREENING: SCREENING :NO FALLS IN THE PAST YEAR CURRENT MEDICATIONS TAKING CARVEDILOL 12.5 MG TABLET ORALLY TWICE A DAY TAKING DILTIAZEM HCL 120 MG TABLET 1 TABLET BEFORE MEALS ORALLY THREE TIMES A DAY TAKING FLONASE 50 MCG/DOSE INHALER 1 SPRAY IN EACH NOSTRIL NASALLY ONCE A DAY TAKING ALBUTEROL 90 MCG/ACT AEROSOL SOLUTION INHALATION TAKING ALBUTEROL-IPRATROPIUM 2.5-0.5 MG/3ML SOLUTION 3 ML INHALATION EVERY 6 HRS TAKING BACLOFEN 10 MG TABLET 1 TABLET WITH FOOD OR MILK ORALLY THREE TIMES A DAY TAKING SEROQUEL 300 MG TABLET 1 TABLET AT NIGHT/ 14 TAB IN DAYTIME ORALLY ONCE A DAY NIGHT, NOTES: GIVEN BY PSYCH MD TAKING KEPPRA 500 MG TABLET 1 TABLET ORALLY TWICE A DAY TAKING TIZANIDINE HCL 4 MG TABLET 1 1/2 CAPSULE NEEDED ORALLY EVERY 8 HRS PRN TAKING VITAMIN D3 ULTRA POTENCY 19584 UNIT TABLET 1 TABLET ORALLY TAKING MORPHINE SULFATE 15 MG TABLET 1 TABLET NEEDED ORALLY EVERY 4 -6 HRS PRN PAIN MDD=4 TAKING VALIUM 5 MG TABLET 1 TABLET NEEDED ORALLY THREE TIMES DAILY PRN PAIN MDD=3 TAKING OXYCODONE HCL 5 MG TABLET 1 TAB ORALLY TID PRN PAIN IN BETWEEN MORPHINE TABS. MDD=3 TAKING ZOFRAN ODT 4 MG TABLET DISINTEGRATING 1 TABLET ON THE TONGUE AND ALLOW TO DISSOLVE ORALLY BID PRN NAUSEA TAKING PHENTERMINE HCL 15 MG CAPSULE 1 CAPSULE ORALLY ONCE A DAY, NOTES: 08-11-18 UNKNOWN TESSALON PERLES 100 MG CAPSULE 1 CAPSULE NEEDED ORALLY THREE TIMES A DAY UNKNOWN BETHANECHOL CHLORIDE 25 MG TABLET 1-2 TABLET AFTER MEALS ORALLY THREE TIMES A DAY UNKNOWN PYRIDIUM 100 MG TABLET 1 TABLETS AFTER MEALS ORALLY THREE TIMES A DAY NEEDED UNKNOWN PRAZOSIN HCL 5 MG CAPSULE 1 CAPSULES AT BEDTIME ORALLY ONCE A DAY UNKNOWN SYMBICORT 80-4.5 MCG/ACT AEROSOL 2 PUFFS INHALATION TWICE A DAY MEDICATION LIST REVIEWED AND RECONCILED WITH THE PATIENT PAST MEDICAL HISTORY HYPERTENSION AFIB RSD FIBROMYALGIA SEIZURE DISORDER DDD PNEUMONIA PTSD 2 LUNG INFECTIONS CELLULITIS RIGHT LEG LARGE MASS ON RIGHT OVARY ALLERGIES TRAMADOL: RASH,RESP.: ALLERGY NEURONTIN: NAUSEA/VOMITING: ALLERGY TORADOL: ,RESP: ALLERGY MOTRIN: NAUSEA/VOMITING: ALLERGY PENNSAID: RASH: ALLERGY CONTRAST DYE: ANAPHYLAXIS: ALLERGY LATEX: RASH: ALLERGY PICC LINES: RASH: ALLERGY SEAFOODS: ANAPHYLAXIS: ALLERGY SURGICAL GLUE: RASH: ALLERGY BETADINE/IODINE: RASH: ALLERGY ADHESIVE TAPE: RASH: ALLERGY SURGICAL HISTORY 6 LAPAROSCOPIES 2 D&C'S PORT PLACEMENT ABLASION AND LOOP RECORDER GALL BLADDER APPENDECTOMY X2 TEETH REMOVED LAPAROSCOPY,D+C- 02/19/15 REMOVAL OF LOOP [id number] INFECTION,CELLULITIS AND ALLERGIC REACTION TO SURGICAL GLUE 07/03/15 BACK OR BACK SX 01/2018 FAMILY HISTORY FATHER: UNKNOWN MOTHER: ALIVE 58 YRS SIBLINGS: ALIVE SON(S): ALIVE 1 BROTHER(S) , 2 SISTER(S) - HEALTHY. 1 SON(S) , 1 DAUGHTER(S) - HEALTHY. DAUGHTER HAS ASTHMA. SOCIAL HISTORY GENERAL: TOBACCO USE ARE YOU A:FORMER SMOKER USES NON NICOTINE VAP NOW HOW LONG HAS IT BEEN SINCE YOU LAST SMOKED?< 1 MONTH VAPORYES ALCOHOL SCREENING DID YOU HAVE A DRINK CONTAINING ALCOHOL IN THE PAST YEAR?NO POINTS0 INTERPRETATIONNEGATIVE RECREATIONAL DRUG USE DRUG USE?NO CAFFEINE CAFFEINE USE?YES HOW OFTEN AND HOW MUCH? 1-3 SODAS RASTAFARIAN [id number] NONE LANGUAGE LANGUAGES SPOKEN:KAZAKH LEARNING BARRIERS / SPECIAL NEEDS BARRIERS TO LEARNING?NO HEARING IMPAIRED?NO VISION IMPAIRED?NO COGNITIVELY IMPAIRED?NO READINESS TO LEARN?YES LEARNING PREFERENCES?NO LEARNING CAPABILITIES PRESENT?YES EMOTIONAL BARRIERS?NO SPECIAL DEVICES?NO RN REHABILITATION NEEDED?NO OCCUPATION: DISABLED. MARITAL STATUS: SINGLE. PAIN CLINIC PFS, CLERGY, PUBLIC HEALTH REFERRALS PFS REFERRAL NEEDED?NO CLERGY REFERRAL NEEDED?NO PUBLIC HEALTH REFERRAL NEEDED?NO WAS THE PROVIDER NOTIFIED OF ANY PERTINENT INFO?NO HAS THE PATIENT BEEN EDUCATED REGARDING HIS/HER PLAN OF CARE?YES HAS THE PATIENT BEEN EDUCATED REGARDING PAIN, THE RISK FOR PAIN, THE IMPORTANCE OF EFFECTIVE PAIN MANAGEMENT, AND THE PAIN ASSESSMENT PROCESS?YES ADVANCE DIRECTIVE ADVANCE DIRECTIVE DISCUSSED WITH PATIENT:YES HOSPITALIZATION/MAJOR DIAGNOSTIC PROCEDURE HOSPITALIZATIONS W SURGERIES ICU-COSTOCHONDRITIS 05/31/14 [facility]. PAIN AND SWELLING,VOMITING 12/19/14 [facility] ER-BACK INJURY 10/18/15 REVIEW OF SYSTEMS REVIEWED BY: PROVIDER: KAREN MERRILL MD . CONSTITUTIONAL: ANY CHANGE IN YOUR MEDICAL CONDITION? NO . CHILLS NO . FEVER NO . INFECTION: DO YOU HAVE NEW INFECTIONS? NO . DO YOU HAVE HISTORY OF MRSA? NO . MUSCULOSKELETAL: ANY NEW PATTERNS OF PAIN OR NUMBNESS? NO . GASTROENTEROLOGY: ANY NEW CHANGE IN BOWEL CONTROL? NO . GENITOURINARY: ANY NEW CHANGE IN BLADDER CONTROL? NO . IS THERE A CHANCE YOU COULD BE ? NO . HEMATOLOGY/LYMPH: DO YOU TAKE ANY BLOOD THINNERS? (FOR EXAMPLE- COUMADIN, PLAVIX, AGGRENOX, PLATEL, PRADAXA, OR XARELTO) NO . WHEN WAS YOUR LAST DOSE? DATE: TIME: . NEUROLOGY: HAVE YOU FALLEN IN THE PAST 6 MONTHS? YES LAST NIGHT LEFT LEG GAVE OUT . ANY NEW EXTREMITY NUMBNESS OR WEAKNESS? NECK INCREASED PAIN AND LEFT LEG INCREASED WEAKNESS ALSO . CARDIOLOGY: DO YOU HAVE A PACEMAKER OR DEFIBRILLATOR? NO . RESPIRATORY: HAVE YOU BEEN SICK IN THE PAST WEEK? NO . FEVER NO . FLU LIKE SYMPTOMS? NO . COUGH NO . INTEGUMENTARY: DO YOU HAVE ANY RASHES OR OPEN SORES? NO . ALLERGIC/IMMUNO: ARE YOU ALLERGIC TO SHELLFISH OR IV DYE? YES . ANY NEW ALLERGIES? NO . PSYCHIATRIC: DO YOU HAVE THOUGHTS OF HURTING YOURSELF OR SOMEONE ELSE? NO . ARE YOU ABUSED, NEGLECTED, OR IN AN UNSAFE ENVIRONMENT? NO . ENDOCRINOLOGY: ARE YOU DIABETIC? NO . OTHER: DO YOU NEED ANY PRESCRIPTIONS? MORPHINE OXYCODONE AND VALIUM ZOFRAN . IF YES, PLEASE LIST: ____ . ANY NEW PROBLEMS WITH YOUR MEDICATIONS? NO . WHEN DID YOU LAST EAT? ____ . WHEN DID YOU LAST DRINK? ____ . WHAT DID YOU LAST DRINK? ____ . NAME OF PERSON DRIVING YOU HOME? ____ . DO YOU HAVE ANY OTHER QUESTIONS OR CONCERNS NO . VITAL SIGNS WT 247.4 LBS, HT 5'5 1/2", BMI 40.54 INDEX, BP 172/90 MM HG, HR 89 /MIN, RR 18 /MIN, TEMP 97.2 F, OXYGEN SAT % 100%, NA INITIALS AW 1600. EXAMINATION GENERAL EXAMINATION: PATIENT IS ALERT O X 3 AND COOPERATIVE. PATIENT IS USING A WALKER TO AMBULATE. LEFT LEG IS WEAKER THAN THE RIGHT WITH EXTENSION AND FLEXION. STRAIGHT LEG RAISE OF THE LEFT LEG IS POSITIVE FOR RADICULOPATHY. MRI OF THE LUMBAR SPINE DONE ON 06/30/18 SHOWS SWELLING WITH SMALL FLUID COLLECTION WITHIN THE MIDLINE SUBCUTANEOUS TISSUES, LIKELY REPRESENTING A SMALL RESIDUAL SEROMA AT L5-S1. ASSESSMENTS LUMBAR POST-LAMINECTOMY SYNDROME - M96.1 (PRIMARY) TREATMENT LUMBAR POST-LAMINECTOMY SYNDROME CLINICAL NOTES: WE DISCUSSED SEVERAL ISSUES WITH MRS. SAMPSON' PAIN MANAGEMENT CASE. AT THIS TIME, I WOULD LIKE TO SEND THE PATIENT TO THE EMERGENCY DEPARTMENT FOR FURTHER EVALUATION. AFTER REVIEWING THE MRI AND SEEING THE PATIENTS' SYMPTOMS, I HAVE CONCERNS OF A POSSIBLE INFECTION IN THE SPINE. I SPOKE WITH THE ER DOCTOR AND THEY WERE WILLING TO ACCEPT THE PATIENT. THE PATIENT WILL CALL TO SCHEDULE A FOLLOW UP APPOINTMENT. INSTRUCTIONS WERE GIVEN, QUESTIONS WERE ANSWERED, PATIENT REPORTS UNDERSTANDING AND AGREES WITH THE PLAN. I, LEVON READ, DOCUMENTED THE ABOVE INFORMATION ACTING A SCRIBE FOR DR. MERRILL. I HAVE REVIEWED THE ABOVE DOCUMENT, WRITTEN BY LEVON FERNANDEZ AND I VERIFY THAT IT IS ACCURATE. PROCEDURE CODES FA211 ESTABILISHED PATIENT [facility] FACILITY CHARGE G8427 CURRENT MEDS W/DOSAGES DOCUMENTED G8730 PAIN ASSESS POS TOOL F/U PLAN DOC DISPOSITION & COMMUNICATION FOLLOW UP 3 WEEKS ELECTRONICALLY SIGNED BY KAREN MERRILL MD, MD ON 09/04/2018 AT 05:48 PM EST DISCLAIMER : THIS IS A VISIT SUMMARY EXTRACTED FROM THE [employer] CHART. IT IS NOT A COPY OF THE [employer] PROGRESS NOTE. MTDD
== END ==
LOC: M PAIN 15:45
PROVIDERS: ATTEND Anesthesiology
DX: M96.1 Postlaminectomy syndrome, not elsewhere classified (principal); I10 Essential (primary) hypertension; I48.91 Unspecified atrial fibrillation; M79.7 Fibromyalgia; G40.909 Epilepsy, unspecified, not intractable, without status epilepticus; F43.10 Post-traumatic stress disorder, unspecified; F17.290 Nicotine dependence, other tobacco product, uncomplicated; Z90.49 Acquired absence of other specified parts of digestive tract; Z79.899 Other long term (current) drug therapy; Z79.891 Long term (current) use of opiate analgesic; Z88.5 Allergy status to narcotic agent; Z88.8 Allergy status to other drugs, medicaments and biological substances; Z91.041 Radiographic dye allergy status; Z91.013 Allergy to seafood; Z91.048 Other nonmedicinal substance allergy status

== ENCOUNTER → 2018-09-12 | Outpatient (CLI) | payer OTHER ==
[~2018-09-12] MED LIST changes: +diphenhydrAMINE INJ 50MG/ML VIAL (J1200) As Ordered ONE
--- NOTE | 2018-10-01 00:44 | ECWPNPC ---
PATIENT NAME: OSMANY SAMPSON : 1985 GENDER: FEMALE VISIT DATE: 09/12/2018 DISCHARGE DATE: 09/12/18 1643 VISIT LOCKED DATE TIME: PHYSICIAN: KAREN MERRILL MD RESOURCE: KAREN MERRILL MD REASON FOR APPOINTMENT 1. PRE OP FOR MRI HISTORY OF PRESENT ILLNESS HISTORY OF PRESENT ILLNESS: PAIN THE PATIENT DESCRIBES THE PAIN... 32 YEAR OLD FEMALE PATIENT WITH A HISTORY OF CHRONIC LOW BACK PAIN. THE PATIENT DESCRIBES THE PAIN ACHING, BURNING, SHARP, STABBING, SHOOTING, AND CONTINUOUS WITH A PAIN SCORE OF 10/10. THE PATIENT SAYS HER PAIN STARTS IN HER LOW BACK AND SHOOTS DOWN INTO HER LEFT LEG CAUSING IT TO FEEL LIKE IT IS GOING TO GIVE OUT. THE PATIENT SAYS THAT AFTER SHE DOES TOO MUCH WALKING OR MOVING SHE STARTS TO SHAKE AND FEEL ILL. THE PATIENT IS CURRENTLY USING MORPHINE, OXYCODONE, VALIUM, TIZANIDINE, AND BACLOFEN TO AID IN PAIN RELIEF. PATIENT DENIES UNEXPLAINABLE WEIGHT LOSS, FEVER, CHILLS, NEW CHANGES ON HER URINARY OR BOWEL CONTROL. FALL RISK SCREENING: SCREENING :NO FALLS IN THE PAST YEAR CURRENT MEDICATIONS TAKING ZOFRAN ODT 4 MG TABLET DISINTEGRATING 1 TABLET ON THE TONGUE AND ALLOW TO DISSOLVE ORALLY BID PRN NAUSEA TAKING CARVEDILOL 12.5 MG TABLET ORALLY TWICE A DAY TAKING DILTIAZEM HCL 60 MG TABLET 1 TABLET BEFORE MEALS ORALLY THREE TIMES A DAY TAKING FLONASE 50 MCG/DOSE INHALER 1 SPRAY IN EACH NOSTRIL NASALLY ONCE A DAY TAKING ALBUTEROL 90 MCG/ACT AEROSOL SOLUTION INHALATION TAKING ALBUTEROL-IPRATROPIUM 2.5-0.5 MG/3ML SOLUTION 3 ML INHALATION EVERY 6 HRS TAKING SEROQUEL 300 MG TABLET 1 TABLET AT NIGHT ORALLY ONCE A NIGHT, NOTES: GIVEN BY PSYCH MD TAKING KEPPRA 500 MG TABLET 1 TABLET ORALLY TWICE A DAY TAKING TIZANIDINE HCL 4 MG TABLET 1 1/2 CAPSULE NEEDED ORALLY EVERY 8 HRS PRN TAKING VALIUM 5 MG TABLET 1 TABLET NEEDED ORALLY FOR SPASMS BID MDD2 TAKING OXYCODONE HCL 5 MG TABLET 1 TAB ORALLY TID PRN PAIN IN BETWEEN MORPHINE TABS. MDD=3 TAKING BACLOFEN 10 MG TABLET 1 TABLET WITH FOOD OR MILK ORALLY PRN FOR SPASMS AND PAIN THREE TIMES A DAY MDD3 TAKING MORPHINE SULFATE 15 MG TABLET 1 TABLET NEEDED ORALLY EVERY 8 HRS PRN PAIN MDD=3 TAKING PRAZOSIN HCL 5 MG CAPSULE 1 CAPSULES AT BEDTIME ORALLY ONCE A DAY TAKING SYMBICORT 80-4.5 MCG/ACT AEROSOL 2 PUFFS INHALATION TWICE A DAY NOT-TAKING PHENTERMINE HCL 15 MG CAPSULE 1 CAPSULE ORALLY ONCE A DAY, NOTES: 08-11-18 NOT-TAKING TESSALON PERLES 100 MG CAPSULE 1 CAPSULE NEEDED ORALLY THREE TIMES A DAY NOT-TAKING BETHANECHOL CHLORIDE 25 MG TABLET 1-2 TABLET AFTER MEALS ORALLY THREE TIMES A DAY NOT-TAKING PYRIDIUM 100 MG TABLET 1 TABLETS AFTER MEALS ORALLY THREE TIMES A DAY NEEDED DISCONTINUED VITAMIN D3 ULTRA POTENCY 95905 UNIT TABLET 1 TABLET ORALLY MEDICATION LIST REVIEWED AND RECONCILED WITH THE PATIENT PAST MEDICAL HISTORY HYPERTENSION AFIB RSD FIBROMYALGIA SEIZURE DISORDER DDD PNEUMONIA PTSD 2 LUNG INFECTIONS CELLULITIS RIGHT LEG LARGE MASS ON RIGHT OVARY ALLERGIES TRAMADOL: RASH,RESP.: ALLERGY NEURONTIN: NAUSEA/VOMITING: ALLERGY TORADOL: ,RESP: ALLERGY MOTRIN: NAUSEA/VOMITING: ALLERGY PENNSAID: RASH: ALLERGY CONTRAST DYE: ANAPHYLAXIS: ALLERGY LATEX: RASH: ALLERGY PICC LINES: RASH: ALLERGY SEAFOODS: ANAPHYLAXIS: ALLERGY SURGICAL GLUE: RASH: ALLERGY BETADINE/IODINE: RASH: ALLERGY ADHESIVE TAPE: RASH: ALLERGY SURGICAL HISTORY 6 LAPAROSCOPIES 2 D&C'S PORT PLACEMENT ABLASION AND LOOP RECORDER GALL BLADDER APPENDECTOMY X2 TEETH REMOVED LAPAROSCOPY,D+C- 02/19/15 REMOVAL OF LOOP [id number] INFECTION,CELLULITIS AND ALLERGIC REACTION TO SURGICAL GLUE 07/03/15 BACK OR BACK SX 01/2018 FAMILY HISTORY FATHER: UNKNOWN MOTHER: ALIVE 58 YRS, DIAGNOSED WITH HYPERTENSION SIBLINGS: ALIVE SON(S): ALIVE 1 BROTHER(S) , 2 SISTER(S) - HEALTHY. 1 SON(S) , 1 DAUGHTER(S) - HEALTHY. DAUGHTER HAS ASTHMA. SOCIAL HISTORY GENERAL: TOBACCO USE ARE YOU A:FORMER SMOKER USES NON NICOTINE VAP NOW HOW LONG HAS IT BEEN SINCE YOU LAST SMOKED?< 1 MONTH VAPORYES ALCOHOL SCREENING DID YOU HAVE A DRINK CONTAINING ALCOHOL IN THE PAST YEAR?NO POINTS0 INTERPRETATIONNEGATIVE RECREATIONAL DRUG USE DRUG USE?NO CAFFEINE CAFFEINE USE?YES HOW OFTEN AND HOW MUCH? 1-3 SODAS YARSANI [id number] NONE LANGUAGE LANGUAGES SPOKEN:CYMRAES LEARNING BARRIERS / SPECIAL NEEDS BARRIERS TO LEARNING?NO HEARING IMPAIRED?NO VISION IMPAIRED?NO COGNITIVELY IMPAIRED?NO READINESS TO LEARN?YES LEARNING PREFERENCES?NO LEARNING CAPABILITIES PRESENT?YES EMOTIONAL BARRIERS?NO SPECIAL DEVICES?NO FOUNDATION RELATIONS MANAGER NEEDED?NO OCCUPATION: DISABLED. MARITAL STATUS: SINGLE. PAIN CLINIC PFS, CLERGY, PUBLIC HEALTH REFERRALS PFS REFERRAL NEEDED?NO CLERGY REFERRAL NEEDED?NO PUBLIC HEALTH REFERRAL NEEDED?NO WAS THE PROVIDER NOTIFIED OF ANY PERTINENT INFO?NO HAS THE PATIENT BEEN EDUCATED REGARDING HIS/HER PLAN OF CARE?YES HAS THE PATIENT BEEN EDUCATED REGARDING PAIN, THE RISK FOR PAIN, THE IMPORTANCE OF EFFECTIVE PAIN MANAGEMENT, AND THE PAIN ASSESSMENT PROCESS?YES ADVANCE DIRECTIVE ADVANCE DIRECTIVE DISCUSSED WITH PATIENT:YES LILIA SAMPSON [phone] HOSPITALIZATION/MAJOR DIAGNOSTIC PROCEDURE HOSPITALIZATIONS W SURGERIES ICU-COSTOCHONDRITIS 05/31/14 [facility]-ABD. PAIN AND SWELLING,VOMITING 12/19/14 [facility] ER-BACK INJURY 10/18/15 REVIEW OF SYSTEMS REVIEWED BY: PROVIDER: KAREN MERRILL MD . CONSTITUTIONAL: ANY CHANGE IN YOUR MEDICAL CONDITION? NO . CHILLS NO . FEVER NO . INFECTION: DO YOU HAVE NEW INFECTIONS? NO . DO YOU HAVE HISTORY OF MRSA? NO . MUSCULOSKELETAL: ANY NEW PATTERNS OF PAIN OR NUMBNESS? NO . GASTROENTEROLOGY: ANY NEW CHANGE IN BOWEL CONTROL? NO . GENITOURINARY: ANY NEW CHANGE IN BLADDER CONTROL? NO . IS THERE A CHANCE YOU COULD BE ? NO . HEMATOLOGY/LYMPH: DO YOU TAKE ANY BLOOD THINNERS? (FOR EXAMPLE- COUMADIN, PLAVIX, AGGRENOX, PLATEL, PRADAXA, OR XARELTO) NO . WHEN WAS YOUR LAST DOSE? DATE: TIME: . NEUROLOGY: HAVE YOU FALLEN IN THE PAST 6 MONTHS? YES, PT COMPLAINS OF OCCASIONAL FALLS DUE TO PAIN OR LEGS GIVING OUT. DENIES ANY INJURIES OR ED VISIT WITH ANY OF THE FALLS. . ANY NEW EXTREMITY NUMBNESS OR WEAKNESS? NO . CARDIOLOGY: DO YOU HAVE A PACEMAKER OR DEFIBRILLATOR? NO . RESPIRATORY: HAVE YOU BEEN SICK IN THE PAST WEEK? NO . FEVER NO . FLU LIKE SYMPTOMS? NO . COUGH NO . INTEGUMENTARY: DO YOU HAVE ANY RASHES OR OPEN SORES? NO . ALLERGIC/IMMUNO: ARE YOU ALLERGIC TO SHELLFISH OR IV DYE? NO . ANY NEW ALLERGIES? NO . PSYCHIATRIC: DO YOU HAVE THOUGHTS OF HURTING YOURSELF OR SOMEONE ELSE? NO . ARE YOU ABUSED, NEGLECTED, OR IN AN UNSAFE ENVIRONMENT? NO . ENDOCRINOLOGY: ARE YOU DIABETIC? NO . OTHER: DO YOU NEED ANY PRESCRIPTIONS? NO . IF YES, PLEASE LIST: ____ . ANY NEW PROBLEMS WITH YOUR MEDICATIONS? NO . WHEN DID YOU LAST EAT? ____ . WHEN DID YOU LAST DRINK? ____ . WHAT DID YOU LAST DRINK? ____ . NAME OF PERSON DRIVING YOU HOME? ____ . DO YOU HAVE ANY OTHER QUESTIONS OR CONCERNS NO . VITAL SIGNS WT 245 LBS, HT 5'5 1/2", BMI 40.15 INDEX, BP 163/102 MM HG, HR 73 /MIN, RR 18 /MIN, TEMP 97.0 F, OXYGEN SAT % 97%, NA INITIALS AW 1354. EXAMINATION GENERAL EXAMINATION: PATIENT IS ALERT O X 3 AND COOPERATIVE. LUNGS CLEAR, TO AUSCULTATION. HEART: NO MURMURS OR GALLOPS; FACIAL CRANIAL NERVES ARE GROSSLY NORMAL. GOOD SYMMETRY OF FACIAL MUSCLE MOVEMENT. NORMAL VISUAL WEAVER. PATIENT IS USING A WALKER TO AMBULATE. PATIENT IS LIMPING FROM HER LEFT LEG. LEFT LEG IS WEAKER AT EXTENSION AND FLEXION. STRAIGHT LEG RAISE OF THE LEFT LEG IS POSITIVE AT 15 DEGREES FOR RADICULOPATHY. MRI OF THE LUMBAR SPINE DONE ON 06/30/2018 SHOWS SWELLING WITH SMALL FLUID COLLECTION WITHIN THE MIDLINE SUBCUTANEOUS TISSUE. LIKELY REPRESENTING A SMALL RESIDUAL SEROMA AT L5-S1. ASSESSMENTS LUMBAR POST-LAMINECTOMY SYNDROME - M96.1 (PRIMARY) POST-LAMINECTOMY SYNDROME - M96.1 TROCHANTERIC BURSITIS OF LEFT HIP - M70.62 TREATMENT LUMBAR POST-LAMINECTOMY SYNDROME REFILL TIZANIDINE HCL TABLET, 4 MG, 1 1/2 CAPSULE NEEDED, ORALLY, EVERY 8 HRS PRN, 30 DAY(S), 135, REFILLS 0 CLINICAL NOTES: WE DISCUSSED SEVERAL ISSUES WITH MRS. SAMPSON'S PAIN MANAGEMENT CASE. THE PATIENT IS HAVING A LUMBAR MRI ON MONDAY WITH IV SEDATION. THE PATIENT WILL CONTINUE WITH THE SAME MEDICATION REGIMENT, EXCEPT I WILL REDUCE THE VALIUM TO ONE TABLET PER DAY. ISTOP [id number] WAS REVIEWED AND I WILL REFILL THE PATIENT'S MEDICATIONS. THE PATIENT WILL FOLLOW UP IN 3 TO 4 WEEKS. I WAS WITH THE PATIENT FOR OVER 40 MINUTES AND MORE THAN HALF THE TIME WAS SPENT DISCUSSING THE PATIENT'S UPCOMING MRI AND HER MEDICATIONS WELL SPEAKING WITH RADIOLOGY AND ANESTHESIA. INSTRUCTIONS WERE GIVEN, QUESTIONS WERE ANSWERED, PATIENT REPORTS UNDERSTANDING AND AGREES WITH THE PLAN. I, AARON ORTEGA, DOCUMENTED THE ABOVE INFORMATION ACTING A SCRIBE FOR DR. MERRILL. I HAVE REVIEWED THE ABOVE DOCUMENT, WRITTEN BY AARON GONSALEZIBEmigdio AND I VERIFY THAT IT IS ACCURATE. POST-LAMINECTOMY SYNDROME REFILL MORPHINE SULFATE TABLET, 15 MG, 1 TABLET NEEDED, ORALLY, EVERY 8 HRS PRN PAIN MDD=3, 30 DAYS, 90, REFILLS 0 REFILL OXYCODONE HCL TABLET, 5 MG, 1 TAB, ORALLY, TID PRN PAIN IN BETWEEN MORPHINE TABS. MDD=3, 30 DAYS, 90, REFILLS 0 TROCHANTERIC BURSITIS OF LEFT HIP REFILL VALIUM TABLET, 5 MG, 1 TABLET NEEDED, ORALLY FOR SPASMS, DAILY MDD1, 30 DAYS, 30, REFILLS 0 OTHERS REFILL BACLOFEN TABLET, 10 MG, 1 TABLET WITH FOOD OR MILK, ORALLY PRN FOR SPASMS AND PAIN, THREE TIMES A DAY MDD3, 30 DAY(S), 90, REFILLS 0 PROCEDURE CODES G8427 CURRENT MEDS W/DOSAGES DOCUMENTED G8730 PAIN ASSESS POS TOOL F/U PLAN DOC FA211 ESTABILISHED PATIENT [facility] FACILITY CHARGE DISPOSITION & COMMUNICATION FOLLOW UP 4 WEEKS ELECTRONICALLY SIGNED BY KAREN MERRILL MD, ON 09/30/2018 AT 04:33 PM EST DISCLAIMER : THIS IS A VISIT SUMMARY EXTRACTED FROM THE [employer] CHART. IT IS NOT A COPY OF THE [employer] PROGRESS NOTE. [facility]
== END ==
LOC: M PAIN 13:30
PROVIDERS: ATTEND Anesthesiology
DX: M96.1 Postlaminectomy syndrome, not elsewhere classified (principal); M70.62 Trochanteric bursitis, left hip; I10 Essential (primary) hypertension; Z86.79 Personal history of other diseases of the circulatory system; M79.7 Fibromyalgia; R56.9 Unspecified convulsions; M51.9 Unspecified thoracic, thoracolumbar and lumbosacral intervertebral disc disorder; F43.10 Post-traumatic stress disorder, unspecified; E66.01 Morbid (severe) obesity due to excess calories; Z68.41 Body mass index [BMI] 40.0-44.9, adult; Z79.891 Long term (current) use of opiate analgesic; Z79.899 Other long term (current) drug therapy; Z88.1 Allergy status to other antibiotic agents; Z88.5 Allergy status to narcotic agent; Z88.6 Allergy status to analgesic agent; Z88.8 Allergy status to other drugs, medicaments and biological substances; Z91.041 Radiographic dye allergy status; Z91.013 Allergy to seafood; Z91.09 Other allergy status, other than to drugs and biological substances; Z87.891 Personal history of nicotine dependence

== ENCOUNTER → 2018-09-13 | Outpatient (CLI) | payer MEDICAID ==
[~2018-09-13] MED LIST changes: -diphenhydrAMINE INJ 50MG/ML VIAL (J1200) As Ordered ONE
== END ==
LOC: M OUTALCOH 09:15
PROVIDERS: ATTEND Psychiatry & Neurology Psychiatry
DX: Z03.89 Encounter for observation for other suspected diseases and conditions ruled out (principal)

== ENCOUNTER 2018-09-14 12:22 | Outpatient (CLI) | payer OTHER ==
[2018-09-14] MEDS ORDERED: PROHANCE 279.3MG/ML 5ML VIAL (A9576) As Ordered ONE (13:38)
[2018-09-14] MEDS ORDERED: PROHANCE 279.3MG/ML 15ML VIAL (A9576) As Ordered ONE (13:38)
[2018-09-14] MEDS ORDERED: MIDAZOLAM INJ 2 MG/2 ML VIAL (J2250) As Ordered ONE (13:39)
[2018-09-14] MEDS ORDERED: fentaNYL 100 MCG/2 ML INJECTION (J3010) As Ordered ONE ×2 (14:05→15:01)
[2018-09-14] MEDS ORDERED: MORPHINE 10 MG/ML 1ML VIAL (J2270) As Ordered ONE (15:24)
[2018-09-14] MEDS ORDERED: ONDANSETRON 4MG/2ML VIAL (J2405) As Ordered ONE (15:40)
[2018-09-14] MEDS ORDERED: fentaNYL 100 MCG/2 ML INJECTION (J3010) IV PRN (16:00)
[2018-09-14] MEDS ORDERED: diphenhydrAMINE INJ 50MG/ML VIAL (J1200) IV SCH (16:00)
[2018-09-14] MEDS ORDERED: LR 1,000 ML IV SCH (16:00)
[2018-09-14] MEDS ORDERED: ONDANSETRON 4MG/2ML VIAL (J2405) IV PRN (16:00)
[2018-09-14 16:57] VITALS: BP 135/75
--- NOTE | 2018-09-14 19:24 | REP ---
MR LUMBAR SPINE WITHOUT AND WITH CONTRAST: HISTORY: Post laminectomy syndrome. CONTRAST: ProHance 20 mL. COMPARISON: 01/30/2018. Decreased signal intensity on T2 weighted images is present the L4-5 and intervertebral discs. The discs are decreased in height. These findings are consistent with disc degeneration. There is no disc bulge or herniation at the L1-2 level. The L1 nerves exit the neural foramina without compression. A diffuse disc bulge is present at the L2-3 level. There is minimal compression of the thecal sac. There is hypertrophy of the posterior articulating facets. The L2 nerves exit the neural foramina without compression. A diffuse disc bulge is present at the L3-4 level. There is minimal compression of the thecal sac. There is hypertrophy of the posterior articulating facets. The L3 nerves exit the neural foramina without compression. A diffuse disc bulge is present at the L4-5 level. There is minimal compression of the thecal sac. There is hypertrophy of the posterior articulating facets. The L4 nerves exit the neural foramina without compression. A laminectomy defect is present. A small amount of enhancing soft tissue is present in the left lower aspect of the spinal canal. The scar tissue involves the left L5 nerve. A diffuse disc bulge is present at the L5-S1 level. There is minimal compression of the thecal sac. There is hypertrophy of the posterior articulating facets. The L5 nerves exit the neural foramina without compression . A laminectomy defect is present. Enhancing scar tissue is present at the laminectomy site and in the lateral aspect of the spinal canal. The scar tissue involves the S1 nerves. The conus medullaris is normal in appearance terminating at the level of the L1-2 intervertebral disc. Increased signal intensity on T2 weighted images is present in the endplates of the L5 and S1 vertebral bodies. This represents degenerative changes. A fluid collection is present in the midline posterior subcutaneous tissues. This represents a seroma. The seroma measures 1.8 cm in transverse by 1.6 cm in AP x 5.4 cm in cephalocaudal dimensions. This extends from the L4 level to S1. IMPRESSION:1. Diffuse disc bulges at the L2-3 and L3-4 levels with minimal thecal sac compression. 2. Diffuse disc bulge at the L4-5 and L5-S1 levels with minimal thecal sac compression. Laminectomy defects are present. Scar tissue involves the left L5 nerve and bilateral S1 nerves. Electronically Signed by Edmund Simmons MD 09/17/2018 08:26 A
== END 2018-09-14 17:15 | disposition home or self-care (01) ==
LOC: M RAD 12:22
PROVIDERS: ATTEND Anesthesiology
DX: M51.26 Other intervertebral disc displacement, lumbar region (principal); M51.27 Other intervertebral disc displacement, lumbosacral region; M96.1 Postlaminectomy syndrome, not elsewhere classified; M54.16 Radiculopathy, lumbar region
CPT/HCPCS: 72158; A9576; J1200; J2250; J2405; J3010

== ENCOUNTER 2018-09-25 08:56 | Outpatient (RCR) | payer MEDICAID | END 2018-10-04 | LOC: M OUTALCOH 08:56 | PROVIDERS: ATTEND Psychiatry & Neurology Psychiatry | DX: Z03.89 Encounter for observation for other suspected diseases and conditions ruled out (principal) ==

== ENCOUNTER → 2018-11-02 | Outpatient (CLI) | payer OTHER | LOC: M PAIN 14:15 | PROVIDERS: ATTEND Anesthesiology | DX: Z53.29 Procedure and treatment not carried out because of patient's decision for other reasons (principal) ==

== ENCOUNTER → 2018-11-06 | Outpatient (CLI) | payer OTHER ==
[~2018-11-06] MED LIST changes: +MIDAZOLAM INJ 2 MG/2 ML VIAL (J2250) As Ordered ONE; +fentaNYL 100 MCG/2 ML INJECTION (J3010) As Ordered ONE
--- NOTE | 2018-11-18 00:02 | ECWPNPC ---
PATIENT NAME: OSMANY SAMPSON : 1985 GENDER: FEMALE VISIT DATE: 11/06/2018 DISCHARGE DATE: 11/06/18 1709 VISIT LOCKED DATE TIME: PHYSICIAN: KAREN MERRILL MD RESOURCE: KAREN MERRILL MD REASON FOR APPOINTMENT 1. BACK/MEDS HISTORY OF PRESENT ILLNESS HISTORY OF PRESENT ILLNESS: PAIN THE PATIENT DESCRIBES THE PAIN... 33 YEAR OLD FEMALE PATIENT WITH A HISTORY OF CHRONIC LOW BACK PAIN. THE PATIENT DESCRIBES THE PAIN SEVERE, ACHING, BURNING, SHARP, STABBING, TENDER, SHOOTING, AND CONTINUOUS WITH A PAIN SCORE OF 10/10. THE PATIENT SAYS HER PAIN STARTS IN HER LOW BACK AREA AND RADIATES DOWN HER LEFT LEG. THE PATIENT HAS A HISTORY OF 2 BACK SURGERIES, BUT SAYS THAT HER PAIN HAS PERSISTED. THE PATIENT IS CURRENTLY USING OXYCODONE, MORPHINE, VALIUM, TIZANIDINE, AND BACLOFEN TO AID IN PAIN RELIEF. 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 PATIENT DENIES UNEXPLAINABLE WEIGHT LOSS, FEVER, CHILLS, NEW CHANGES ON HER URINARY OR BOWEL CONTROL. FALL RISK SCREENING: SCREENING : NO FALLS IN THE PAST YEAR. CURRENT MEDICATIONS TAKING TIZANIDINE HCL 4 MG TABLET 1 1/2 CAPSULE NEEDED ORALLY EVERY 8 HRS PRN TAKING BACLOFEN 10 MG TABLET 1 TABLET WITH FOOD OR MILK ORALLY PRN FOR SPASMS AND PAIN THREE TIMES A DAY MDD3 TAKING ZOFRAN ODT 4 MG TABLET DISINTEGRATING 1 TABLET ON THE TONGUE AND ALLOW TO DISSOLVE ORALLY BID PRN NAUSEA TAKING CARVEDILOL 12.5 MG TABLET ORALLY TWICE A DAY TAKING DILTIAZEM HCL 60 MG TABLET 1 TABLET BEFORE MEALS ORALLY THREE TIMES A DAY TAKING FLONASE 50 MCG/DOSE INHALER 1 SPRAY IN EACH NOSTRIL NASALLY ONCE A DAY TAKING ALBUTEROL 90 MCG/ACT AEROSOL SOLUTION INHALATION TAKING ALBUTEROL-IPRATROPIUM 2.5-0.5 MG/3ML SOLUTION 3 ML INHALATION EVERY 6 HRS TAKING SEROQUEL 50 MG TABLET 1 TABLET AT NIGHT ORALLY ONCE A NIGHT, NOTES: GIVEN BY PSYCH MD TAKING KEPPRA 500 MG TABLET 1 TABLET ORALLY TWICE A DAY TAKING PRAZOSIN HCL 5 MG CAPSULE 2 CAPSULES AT BEDTIME ORALLY ONCE A DAY TAKING SYMBICORT 80-4.5 MCG/ACT AEROSOL 2 PUFFS INHALATION TWICE A DAY TAKING MORPHINE SULFATE 15 MG TABLET 1 TABLET NEEDED ORALLY EVERY 8 HRS PRN PAIN MDD=3 TAKING VALIUM 5 MG TABLET 1 TABLET NEEDED ORALLY FOR SPASMS DAILY MDD1 TAKING OXYCODONE HCL 5 MG TABLET 1 TAB ORALLY TID PRN PAIN IN BETWEEN MORPHINE TABS. MDD=3 UNKNOWN PHENTERMINE HCL 15 MG CAPSULE 1 CAPSULE ORALLY ONCE A DAY, NOTES: 08-11-18 UNKNOWN TESSALON PERLES 100 MG CAPSULE 1 CAPSULE NEEDED ORALLY THREE TIMES A DAY UNKNOWN BETHANECHOL CHLORIDE 25 MG TABLET 1-2 TABLET AFTER MEALS ORALLY THREE TIMES A DAY UNKNOWN PYRIDIUM 100 MG TABLET 1 TABLETS AFTER MEALS ORALLY THREE TIMES A DAY NEEDED MEDICATION LIST REVIEWED AND RECONCILED WITH THE PATIENT PAST MEDICAL HISTORY HYPERTENSION AFIB RSD FIBROMYALGIA SEIZURE DISORDER DDD PNEUMONIA PTSD 2 LUNG INFECTIONS CELLULITIS RIGHT LEG LARGE MASS ON RIGHT OVARY ALLERGIES TRAMADOL: RASH,RESP.: ALLERGY NEURONTIN: NAUSEA/VOMITING: ALLERGY TORADOL: ,RESP: ALLERGY MOTRIN: NAUSEA/VOMITING: ALLERGY PENNSAID: RASH: ALLERGY CONTRAST DYE: ANAPHYLAXIS: ALLERGY LATEX: RASH: ALLERGY PICC LINES: RASH: ALLERGY SEAFOODS: ANAPHYLAXIS: ALLERGY SURGICAL GLUE: RASH: ALLERGY BETADINE/IODINE: RASH: ALLERGY ADHESIVE TAPE: RASH: ALLERGY SURGICAL HISTORY 6 LAPAROSCOPIES 2 D&C'S PORT PLACEMENT ABLASION AND LOOP RECORDER GALL BLADDER APPENDECTOMY X2 TEETH REMOVED LAPAROSCOPY,D+C- 02/19/15 REMOVAL OF LOOP [id number] INFECTION,CELLULITIS AND ALLERGIC REACTION TO SURGICAL GLUE 07/03/15 BACK OR BACK SX 01/2018 FAMILY HISTORY FATHER: UNKNOWN MOTHER: ALIVE 58 YRS, DIAGNOSED WITH HYPERTENSION SIBLINGS: ALIVE SON(S): ALIVE 1 BROTHER(S) , 2 SISTER(S) - HEALTHY. 1 SON(S) , 1 DAUGHTER(S) - HEALTHY. DAUGHTER HAS ASTHMA. SOCIAL HISTORY GENERAL: TOBACCO USE ARE YOU A:FORMER SMOKER USES NON NICOTINE VAP NOW HOW LONG HAS IT BEEN SINCE YOU LAST SMOKED?< 1 MONTH VAPORYES ALCOHOL SCREENING DID YOU HAVE A DRINK CONTAINING ALCOHOL IN THE PAST YEAR?NO POINTS0 INTERPRETATIONNEGATIVE RECREATIONAL DRUG USE DRUG USE?NO CAFFEINE CAFFEINE USE?YES HOW OFTEN AND HOW MUCH? 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 MARITAL STATUS: SINGLE. PAIN CLINIC PFS, CLERGY, PUBLIC HEALTH REFERRALS PFS REFERRAL NEEDED?NO CLERGY REFERRAL NEEDED?NO PUBLIC HEALTH REFERRAL NEEDED?NO WAS THE PROVIDER NOTIFIED OF ANY PERTINENT INFO?NO HAS THE PATIENT BEEN EDUCATED REGARDING HIS/HER PLAN OF CARE?YES HAS THE PATIENT BEEN EDUCATED REGARDING PAIN, THE RISK FOR PAIN, THE IMPORTANCE OF EFFECTIVE PAIN MANAGEMENT, AND THE PAIN ASSESSMENT PROCESS?YES ADVANCE DIRECTIVE ADVANCE DIRECTIVE DISCUSSED WITH PATIENT:YES LILIA SAMPSON [phone] HOSPITALIZATION/MAJOR DIAGNOSTIC PROCEDURE HOSPITALIZATIONS W SURGERIES ICU-COSTOCHONDRITIS 05/31/14 [facility]-ABD. PAIN AND SWELLING,VOMITING 12/19/14 [facility] ER-BACK INJURY 10/18/15 REVIEW OF SYSTEMS REVIEWED BY: PROVIDER: KAREN MERRILL MD . CONSTITUTIONAL: ANY CHANGE IN YOUR MEDICAL CONDITION? NO . CHILLS NO . FEVER NO . INFECTION: DO YOU HAVE NEW INFECTIONS? BEEN HAVING FEVERS UNKNOWN ORIGIN PRIMARY IS AWARE . DO YOU HAVE HISTORY OF MRSA? NO . MUSCULOSKELETAL: ANY NEW PATTERNS OF PAIN OR NUMBNESS? NO . GASTROENTEROLOGY: ANY NEW CHANGE IN BOWEL CONTROL? NO . GENITOURINARY: ANY NEW CHANGE IN BLADDER CONTROL? NO . IS THERE A CHANCE YOU COULD BE ? NO . HEMATOLOGY/LYMPH: DO YOU TAKE ANY BLOOD THINNERS? (FOR EXAMPLE- COUMADIN, PLAVIX, AGGRENOX, PLATEL, PRADAXA, OR XARELTO) NO . WHEN WAS YOUR LAST DOSE? DATE: TIME: . NEUROLOGY: HAVE YOU FALLEN IN THE PAST 12 MONTHS? YES ON MONDAY DOWN 2 STAIRS NO URGENT CARE . ANY NEW EXTREMITY NUMBNESS OR WEAKNESS? NO . CARDIOLOGY: DO YOU HAVE A PACEMAKER OR DEFIBRILLATOR? NO . RESPIRATORY: HAVE YOU BEEN SICK IN THE PAST WEEK? NO . FEVER NO . FLU LIKE SYMPTOMS? NO . COUGH NO . INTEGUMENTARY: DO YOU HAVE ANY RASHES OR OPEN SORES? NO . ALLERGIC/IMMUNO: ARE YOU ALLERGIC TO IV DYE? NO . ANY NEW ALLERGIES? NO . PSYCHIATRIC: DO YOU HAVE THOUGHTS OF HURTING YOURSELF OR SOMEONE ELSE? NO . ARE YOU ABUSED, NEGLECTED, OR IN AN UNSAFE ENVIRONMENT? NO . ENDOCRINOLOGY: ARE YOU DIABETIC? NO . OTHER: DO YOU NEED ANY PRESCRIPTIONS? YES WILL BE DISCUSSING WITH DR MERRILL . IF YES, PLEASE LIST: ____ . ANY NEW PROBLEMS WITH YOUR MEDICATIONS? NO . WHEN DID YOU LAST EAT? ____ . WHEN DID YOU LAST DRINK? ____ . WHAT DID YOU LAST DRINK? ____ . NAME OF PERSON DRIVING YOU HOME? ____ . DO YOU HAVE ANY OTHER QUESTIONS OR CONCERNS NO . VITAL SIGNS WT 237 LBS, HT 5'5 1/2", BMI 38.83 INDEX, BP 152/98 MM HG, HR 97 /MIN, RR 18 /MIN, TEMP 96.6 F, OXYGEN SAT % 97%, SAFE IN ENV? (Y/N) YES, NA INITIALS SC 14:22, REVIEWED BY: KG. EXAMINATION GENERAL EXAMINATION: PATIENT IS ALERT O X 3 AND COOPERATIVE. PATIENT HAS DIFFICULTY WALKING. PATIENT IS USING A WALKER TO AMBULATE. LEFT LEG IS WEAKER AT EXTENSION AND FLEXION. STRAIGHT LEG RAISE OF THE LEFT LEG IS POSITIVE AT 10 DEGREES FOR RADICULOPATHY. MRI OF THE LUMBAR SPINE DONE ON 09/14/2018 SHOWS POST LAMINECTOMY CHANGES AND THERE ARE NO SIGNS OF INFECTION COMPARED TO MRI DONE ON 06/30/2018. 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 SAMPSON'S PAIN MANAGEMENT CASE. DUE TO THE LUMBAR RADICULOPATHY, I WOULD LIKE TO MOVE FORWARD WITH A LUMBAR EPIDURAL STEROID INJECTION AT THIS TIME. WE DISCUSSED THE BENEFITS, RISKS, AND ALTERNATIVES OF THE INJECTION AND THE PATIENT WOULD LIKE TO PROCEED. I WILL ALSO REFER THE PATIENT FOR A PSYCHOLOGICAL EVALUATION FOR A POSSIBLE DCS TRIAL. I WILL REDUCE THE OXYCODONE TO 70 TABLETS PER MONTH AND THE BACLOFEN TO 60 TABLETS PER MONTH. I WILL INCREASE THE VALIUM TO 45 TABLETS PER MONTH. ISTOP _[id number] WAS REVIEWED. URINE TOXICOLOGY DONE ON 07/06/2018 SHOWS CONCURRENT RESULTS. THE PATIENT WILL ALSO SIGN AN UPDATED NARCOTIC AGREEMENT TODAY. I WOULD LIKE TO DISCUSS THE CASE WITH THE PATIENT'S PSYCHIATRIST AND PRIMARY CARE PHYSICIAN REGARDING PRESCRIBING THE PATIENT'S VALIUM AND ZOFRAN. THE PATIENT WILL FOLLOW UP IN A MONTH. I WAS WITH THE PATIENT FOR OVER 45 MINUTES AND MORE THAN HALF OF THE TIME WAS SPENT IN COORDINATION OF CARE DISCUSSING THE CASE WITH THE PATIENT, DISCUSSING HER MEDICATIONS WITH THE PATIENT, AND DISCUSSING THE PATIENT'S MRI WITH THE RADIOLOGIST. INSTRUCTIONS WERE GIVEN, QUESTIONS WERE ANSWERED, PATIENT REPORTS UNDERSTANDING AND AGREES WITH THE PLAN. I, AARON ORTEGA, DOCUMENTED THE ABOVE INFORMATION ACTING A SCRIBE FOR DR. MERRILL. I HAVE REVIEWED THE ABOVE DOCUMENT, WRITTEN BY AARON GONSALEZIBEmigdio AND I VERIFY THAT IT IS ACCURATE. LUMBAR POST-LAMINECTOMY SYNDROME REFILL TIZANIDINE HCL TABLET, 4 MG, 1 1/2 CAPSULE NEEDED, ORALLY, EVERY 8 HRS PRN, 30 DAY(S), 135, REFILLS 0 CONTINUE ZOFRAN ODT TABLET DISINTEGRATING, 4 MG, 1 TABLET ON THE TONGUE AND ALLOW TO DISSOLVE, ORALLY, EVERY 8 HOURS NEEDED MDD2, 30 DAY(S), 60, REFILLS 0 OTHERS REFILL BACLOFEN TABLET, 10 MG, 1 TABLET WITH FOOD OR MILK, ORALLY PRN FOR SPASMS AND PAIN, EVERY 12 HRS MDD2, 30 DAY(S), 60, REFILLS 0 REFILL VALIUM TABLET, 5 MG, 1 TABLET NEEDED, ORALLY FOR SPASMS, EVERY 12 HOURS NEEDED MDD2, 28 DAY(S), 45, REFILLS 0 REFILL MORPHINE SULFATE TABLET, 15 MG, 1 TABLET NEEDED, ORALLY, EVERY 8 HRS PRN PAIN MDD=3, 30 DAY(S), 90, REFILLS 0 REFILL OXYCODONE HCL TABLET, 5 MG, 1 TAB, ORALLY, EVERY 8 HOURS NEEDED MDD3, 28 DAYS, 70, REFILLS 0 NOTES: WHAT IS LUMBAR EPIDURAL INJECTION? MATERIAL WAS PRINTED,LUMBAR EPIDURAL INJECTION: YOUR PROCEDURE MATERIAL WAS PRINTED. PROCEDURE CODES FA211 ESTABILISHED PATIENT THE [facility] FACILITY CHARGE G8427 CURRENT MEDS W/DOSAGES DOCUMENTED G8730 PAIN ASSESS POS TOOL F/U PLAN DOC DISPOSITION & COMMUNICATION FOLLOW UP 4 WEEKS ELECTRONICALLY SIGNED BY KAREN MERRILL MD, MD ON 11/17/2018 AT 07:47 PM EDT DISCLAIMER : THIS IS A VISIT SUMMARY EXTRACTED FROM THE [employer] CHART. IT IS NOT A COPY OF THE [employer] PROGRESS NOTE. MTDD
== END ==
LOC: M PAIN 14:15
PROVIDERS: ATTEND Anesthesiology
DX: M51.16 Intervertebral disc disorders with radiculopathy, lumbar region (principal); M96.1 Postlaminectomy syndrome, not elsewhere classified; I10 Essential (primary) hypertension; M79.7 Fibromyalgia; R56.9 Unspecified convulsions; F43.10 Post-traumatic stress disorder, unspecified; Z79.891 Long term (current) use of opiate analgesic; Z79.899 Other long term (current) drug therapy; Z88.1 Allergy status to other antibiotic agents; Z88.5 Allergy status to narcotic agent; Z88.6 Allergy status to analgesic agent; Z88.8 Allergy status to other drugs, medicaments and biological substances; Z91.041 Radiographic dye allergy status; Z91.040 Latex allergy status; Z91.013 Allergy to seafood; Z91.09 Other allergy status, other than to drugs and biological substances; Z87.891 Personal history of nicotine dependence; Z86.79 Personal history of other diseases of the circulatory system

== ENCOUNTER → 2018-11-08 | Outpatient (CLI) | payer OTHER ==
[~2018-11-08] MED LIST changes: +ISOVUE-M 300 61% 15ML VIAL (Q9967) As Ordered ONE; +LIDOCAINE 1% SDV INJ 30 ML VIAL As Ordered ONE; -MIDAZOLAM INJ 2 MG/2 ML VIAL (J2250) As Ordered ONE; +diazePAM 5 MG TAB As Ordered ONE; +diphenhydrAMINE 25 MG CAP As Ordered ONE; -fentaNYL 100 MCG/2 ML INJECTION (J3010) As Ordered ONE; +methylPREDNISolone SUSP 40 MG/ML (DEPO-medrol) VIAL (J1030) As Ordered ONE; +oxyCODONE 5MG TAB As Ordered ONE
--- NOTE | 2018-11-08 16:01 | REP ---
Sacrum and coccyx: Two views. History: Caudal epidural injection for pain. 5 seconds of fluoroscopy time is reported. Findings: A sequence of two last image hold fluoroscopically obtained spot radiographs of the sacrum and coccyx document needle position associated with caudal epidural injection procedure. Electronically Signed by Jf Mccann MD 11/08/2018 04:54 P
--- NOTE | 2018-11-28 00:08 | ECWPNPC ---
PATIENT NAME: OSMANY SAMPSON : 1985 GENDER: FEMALE VISIT DATE: 11/08/2018 DISCHARGE DATE: 11/08/18 171 VISIT LOCKED DATE TIME: PHYSICIAN: KAREN MERRILL MD RESOURCE: KAREN MERRILL MD REASON FOR APPOINTMENT 1. CAUDAL HISTORY OF PRESENT ILLNESS HISTORY OF PRESENT ILLNESS: PAIN THE PATIENT DESCRIBES THE PAIN... FALL RISK SCREENING: SCREENING : NO FALLS IN THE PAST YEAR. CURRENT MEDICATIONS TAKING CARVEDILOL 12.5 MG TABLET ORALLY TWICE A DAY, NOTES: 11/08/18 AM TAKING DILTIAZEM HCL 60 MG TABLET 1 TABLET BEFORE MEALS ORALLY THREE TIMES A DAY, NOTES: 11/08/18 AM TAKING FLONASE 50 MCG/DOSE INHALER 1 SPRAY IN EACH NOSTRIL NASALLY ONCE A DAY, NOTES: 11/07/18 TAKING ALBUTEROL 90 MCG/ACT AEROSOL SOLUTION INHALATION , NOTES: NONE LATELY TAKING ALBUTEROL-IPRATROPIUM 2.5-0.5 MG/3ML SOLUTION 3 ML INHALATION EVERY 6 HRS, NOTES: NONE LATELY TAKING SEROQUEL 50 MG TABLET 1 TABLET AT NIGHT ORALLY ONCE A NIGHT, NOTES: GIVEN BY PSYCH MD 11/07/18 TAKING KEPPRA 500 MG TABLET 1 TABLET ORALLY TWICE A DAY, NOTES: 11/08/18 AM TAKING PRAZOSIN HCL 5 MG CAPSULE 2 CAPSULES AT BEDTIME ORALLY ONCE A DAY, NOTES: 11/07/18 TAKING SYMBICORT 80-4.5 MCG/ACT AEROSOL 2 PUFFS INHALATION TWICE A DAY, NOTES: 11/07/18 TAKING BACLOFEN 10 MG TABLET 1 TABLET WITH FOOD OR MILK ORALLY PRN FOR SPASMS AND PAIN EVERY 12 HRS MDD2, NOTES: NOT YET TAKING VALIUM 5 MG TABLET 1 TABLET NEEDED ORALLY FOR SPASMS EVERY 12 HOURS NEEDED MDD2, NOTES: 11/07/18 TAKING MORPHINE SULFATE 15 MG TABLET 1 TABLET NEEDED ORALLY EVERY 8 HRS PRN PAIN MDD=3, NOTES: 11/07/18 TAKING OXYCODONE HCL 5 MG TABLET 1 TAB ORALLY EVERY 8 HOURS NEEDED MDD3, NOTES: 11/08/18 AM TAKING TIZANIDINE HCL 4 MG TABLET 1 1/2 CAPSULE NEEDED ORALLY EVERY 8 HRS PRN, NOTES: 11/07/18 TAKING ZOFRAN ODT 4 MG TABLET DISINTEGRATING 1 TABLET ON THE TONGUE AND ALLOW TO DISSOLVE ORALLY EVERY 8 HOURS NEEDED MDD2, NOTES: 11/07/18 NOT-TAKING PHENTERMINE HCL 15 MG CAPSULE 1 CAPSULE ORALLY ONCE A DAY, NOTES: 08-11-18 NOT-TAKING TESSALON PERLES 100 MG CAPSULE 1 CAPSULE NEEDED ORALLY THREE TIMES A DAY NOT-TAKING BETHANECHOL CHLORIDE 25 MG TABLET 1-2 TABLET AFTER MEALS ORALLY THREE TIMES A DAY NOT-TAKING PYRIDIUM 100 MG TABLET 1 TABLETS AFTER MEALS ORALLY THREE TIMES A DAY NEEDED MEDICATION LIST REVIEWED AND RECONCILED WITH THE PATIENT PAST MEDICAL HISTORY HYPERTENSION AFIB RSD FIBROMYALGIA SEIZURE DISORDER DDD PNEUMONIA PTSD 2 LUNG INFECTIONS CELLULITIS RIGHT LEG LARGE MASS ON RIGHT OVARY ALLERGIES TRAMADOL: RASH,RESP. - ALLERGY NEURONTIN: NAUSEA/VOMITING - ALLERGY TORADOL: ,RESP - ALLERGY MOTRIN: NAUSEA/VOMITING - ALLERGY PENNSAID: RASH - ALLERGY CONTRAST DYE: ANAPHYLAXIS - ALLERGY LATEX: RASH - ALLERGY PICC LINES: RASH - ALLERGY SEAFOODS: ANAPHYLAXIS - ALLERGY SURGICAL GLUE: RASH - ALLERGY BETADINE/IODINE: RASH - ALLERGY ADHESIVE TAPE: RASH - ALLERGY SURGICAL HISTORY 6 LAPAROSCOPIES 2 D&C'S PORT PLACEMENT ABLASION AND LOOP RECORDER GALL BLADDER APPENDECTOMY X2 TEETH REMOVED LAPAROSCOPY,D+C- 02/19/15 REMOVAL OF LOOP [id number] INFECTION,CELLULITIS AND ALLERGIC REACTION TO SURGICAL GLUE 07/03/15 BACK OR BACK SX 01/2018 FAMILY HISTORY FATHER: UNKNOWN MOTHER: ALIVE 58 YRS, DIAGNOSED WITH HYPERTENSION SIBLINGS: ALIVE SON(S): ALIVE 1 BROTHER(S) , 2 SISTER(S) - HEALTHY. 1 SON(S) , 1 DAUGHTER(S) - HEALTHY. DAUGHTER HAS ASTHMA. SOCIAL HISTORY GENERAL: TOBACCO USE ARE YOU A:FORMER SMOKER USES NON NICOTINE VAP NOW HOW LONG HAS IT BEEN SINCE YOU LAST SMOKED?1-5 YEARS VAPORYES ALCOHOL SCREENING DID YOU HAVE A DRINK CONTAINING ALCOHOL IN THE PAST YEAR?NO POINTS0 INTERPRETATIONNEGATIVE RECREATIONAL DRUG USE DRUG USE?NO CAFFEINE CAFFEINE USE?YES HOW OFTEN AND HOW MUCH? 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 MARITAL STATUS: SINGLE. PAIN CLINIC PFS, CLERGY, PUBLIC HEALTH REFERRALS PFS REFERRAL NEEDED?NO CLERGY REFERRAL NEEDED?NO PUBLIC HEALTH REFERRAL NEEDED?NO WAS THE PROVIDER NOTIFIED OF ANY PERTINENT INFO?NO HAS THE PATIENT BEEN EDUCATED REGARDING HIS/HER PLAN OF CARE?YES HAS THE PATIENT BEEN EDUCATED REGARDING PAIN, THE RISK FOR PAIN, THE IMPORTANCE OF EFFECTIVE PAIN MANAGEMENT, AND THE PAIN ASSESSMENT PROCESS?YES ADVANCE DIRECTIVE ADVANCE DIRECTIVE DISCUSSED WITH PATIENT:YES LILIA SAMPSON [phone] HOSPITALIZATION/MAJOR DIAGNOSTIC PROCEDURE HOSPITALIZATIONS W SURGERIES ICU-COSTOCHONDRITIS 05/31/14 [facility]-ABD. PAIN AND SWELLING,VOMITING 12/19/14 [facility] ER-BACK INJURY 10/18/15 REVIEW OF SYSTEMS REVIEWED BY: PROVIDER: . CONSTITUTIONAL: ANY CHANGE IN YOUR MEDICAL CONDITION? NO . CHILLS NO . FEVER NO . INFECTION: DO YOU HAVE NEW INFECTIONS? NO . DO YOU HAVE HISTORY OF MRSA? NO . MUSCULOSKELETAL: ANY NEW PATTERNS OF PAIN OR NUMBNESS? NO . GASTROENTEROLOGY: ANY NEW CHANGE IN BOWEL CONTROL? NO . GENITOURINARY: ANY NEW CHANGE IN BLADDER CONTROL? NO . IS THERE A CHANCE YOU COULD BE ? NO . HEMATOLOGY/LYMPH: DO YOU TAKE ANY BLOOD THINNERS? (FOR EXAMPLE- COUMADIN, PLAVIX, AGGRENOX, PLATEL, PRADAXA, OR XARELTO) NO . WHEN WAS YOUR LAST DOSE? DATE: TIME: . NEUROLOGY: HAVE YOU FALLEN IN THE PAST 12 MONTHS? YES, PRIOR TO LAST VISIT . ANY NEW EXTREMITY NUMBNESS OR WEAKNESS? NO . CARDIOLOGY: DO YOU HAVE A PACEMAKER OR DEFIBRILLATOR? NO . RESPIRATORY: HAVE YOU BEEN SICK IN THE PAST WEEK? YES . FEVER YES, RESOLVED LAST WEEK . FLU LIKE SYMPTOMS? NO . COUGH NO . INTEGUMENTARY: DO YOU HAVE ANY RASHES OR OPEN SORES? NO . ALLERGIC/IMMUNO: ARE YOU ALLERGIC TO IV DYE? YES . ANY NEW ALLERGIES? NO . PSYCHIATRIC: DO YOU HAVE THOUGHTS OF HURTING YOURSELF OR SOMEONE ELSE? NO . ARE YOU ABUSED, NEGLECTED, OR IN AN UNSAFE ENVIRONMENT? NO . ENDOCRINOLOGY: ARE YOU DIABETIC? NO . OTHER: DO YOU NEED ANY PRESCRIPTIONS? NO . IF YES, PLEASE LIST: ____ . ANY NEW PROBLEMS WITH YOUR MEDICATIONS? NO . WHEN DID YOU LAST EAT? 11/07/18 PM . WHEN DID YOU LAST DRINK? 11/08/18 0800 . WHAT DID YOU LAST DRINK? WATER . NAME OF PERSON DRIVING YOU HOME? MOM . DO YOU HAVE ANY OTHER QUESTIONS OR CONCERNS NO . VITAL SIGNS WT 237 LBS, HT 5'5 1/2", BMI 38.83 INDEX, BP 122/75 MM HG, HR 75 /MIN, RR 18 /MIN, TEMP 96.2 F, OXYGEN SAT % 97%, NA INITIALS SC 12:46, REVIEWED BY: EM. ASSESSMENTS LUMBAR POST-LAMINECTOMY SYNDROME - M96.1 (PRIMARY) TREATMENT OTHERS START CARISOPRODOL TABLET, 350 MG, 1 TABLET NEEDED, ORALLY FOR SPASMS AND PAIN, EVERY 8 HOURS NEEDED MDD2, 3 DOSES, 5, REFILLS 0 CLINICAL NOTES: ISTOP CHECKED NUMBER [id number]. PROCEDURES PN CAUDAL EPIDURALS PRE PROCEDURE DIAGNOSIS LUMBAR POST LAMINECTOMY PAIN SYNDROME POST PROCEDURE DIAGNOSIS LUMBAR POST LAMINECTOMY PAIN SYNDROME PROCEDURE CAUDAL EPIDURAL STEROID INJECTION UNDER FLUOROSCOPIC GUIDANCE. SURGEON DR. KAREN MERRILL GUM MIXER NONE ANESTHESIA LOCAL PRE PROCEDURE NOTE THE PATIENT HAS HISTORY OF CHRONIC LOW BACK PAIN. I EVALUATE THE PATIENT AND REVIEWED THE CHART. I WENT OVER THE RISKS, ALTERNATIVES, AND BENEFITS ASSOCIATED WITH THIS PROCEDURE. THE PATIENT WOULD LIKE TO PROCEED AND GIVE CONSENT TO PERFORMED THE PROCEDURE .THE PATIENT DENIES UNEXPLAINABLE WEIGHT LOSS, FEVER, CHILLS, OR NEW CHANGES IN URINARY OR BOWEL CONTROL. DESCRIPTION OF PROCEDURE THE PATIENT WAS BROUGHT TO THE PROCEDURE ROOM AND PLACED IN THE PRONE POSITION. THE LUMBOSACRAL AREA WAS CLEANED WITH BETADINE SOLUTION AND DRAPED ASEPTICALLY. THE PROCEDURE WAS DONE UNDER STERILE CONDITIONS. I CHECKED LATERALITY AND THE LEVEL WHERE THE PROCEDURE WAS GOING TO BE PERFORMED WITH THE PATIENT AND THE SUPPORTING STAFF AT THE MOMENT OF THE TIME OUT IN THE PROCEDURE ROOM. UNDER FLUOROSCOPIC GUIDANCE, THE TARGET POINT WAS SELECTED AT THE EPIDURAL SPACE BELOW THE SACROCOCCYGEAL LIGAMENT. LIDOCAINE 0.5% WAS USE TO NUMB THE SKIN AND THE SUBCUTANEOUS TISSUE BELOW IT. AN EPIDURAL TUOHY NEEDLE, 17-GAUGE, WAS ADVANCED UNDER FLUOROSCOPIC GUIDANCE AND FOLLOWING PATIENT FEEDBACK UNTIL THE EPIDURAL SPACE WAS REACHED 6 CM DEEP INTO THE SKIN BY THE LOSS OF RESISTANCE TECHNIQUE. NO DYE WAS USED. A SOLUTION OF 6 ML OF NORMAL SALINE WITH DEPO-MEDROL 60 MG WAS INJECTED SLOWLY FOLLOWING THE PATIENT FEEDBACK. THERE WAS NO EVIDENCE OF BLOOD, PARESTHESIA OR CEREBROSPINAL FLUID DURING THE PROCEDURE. THE PATIENT WAS SENT TO THE RECOVERY ROOM. THE PATIENT WAS MOVING THE EXTREMITIES AND DOING WELL. THERE WAS NO COMPLICATION DURING THE PROCEDURE. FLUOROSCOPY TIME WAS 5 SECONDS POST PROCEDURE NOTE THE PATIENT WILL BE SEEN IN A FOLLOW UP IN THE NEXT FEW WEEKS. THE PATIENT WAS VERY UNCOMFORTABLE AFTER THE PROCEDURE. MEDICATIONS WERE GIVEN. INSTRUCTIONS WERE GIVEN, QUESTIONS WERE ANSWERED, AND THE PATIENT EXPRESSED UNDERSTANDING AND AGREES WITH THE PLAN. I, AARON ORTEGA, DOCUMENTED THE ABOVE INFORMATION ACTING A SCRIBE FOR DR. MERRILL. I HAVE REVIEWED THE ABOVE DOCUMENT, WRITTEN BY AARON FERNANDEZ AND I VERIFY THAT IT IS ACCURATE. DIAGNOSTIC IMAGING [facility] FLUORO GUIDE SPINE INJECTION (PAIN)[id number] PROCEDURE CODES 6045F RADXPS IN END [id number] PXD [id number] LUMBAR/SACRAL W/ IMAGING DISPOSITION & COMMUNICATION FOLLOW UP 3 WEEKS ELECTRONICALLY SIGNED BY KAREN MERRILL MD, MD ON 11/27/2018 AT 10:31 AM EDT DISCLAIMER : THIS IS A VISIT SUMMARY EXTRACTED FROM THE [employer] CHART. IT IS NOT A COPY OF THE [employer] PROGRESS NOTE. MTDMemo
== END ==
LOC: M PAIN 12:30
PROVIDERS: ATTEND Anesthesiology
DX: M96.1 Postlaminectomy syndrome, not elsewhere classified (principal); I10 Essential (primary) hypertension; I48.1 Persistent atrial fibrillation; M79.7 Fibromyalgia; G40.909 Epilepsy, unspecified, not intractable, without status epilepticus; F43.10 Post-traumatic stress disorder, unspecified; Z79.891 Long term (current) use of opiate analgesic; Z79.899 Other long term (current) drug therapy; Z87.891 Personal history of nicotine dependence; Z88.5 Allergy status to narcotic agent; Z88.6 Allergy status to analgesic agent; Z88.8 Allergy status to other drugs, medicaments and biological substances; Z91.013 Allergy to seafood; Z91.040 Latex allergy status; Z91.041 Radiographic dye allergy status; Z91.048 Other nonmedicinal substance allergy status
CPT/HCPCS: 62323; J1030; J2250; J3010; Q9967

== ENCOUNTER 2018-12-11 16:02 | Emergency (ER) | payer OTHER ==
[~2018-12-11 16:02] MED LIST changes: -/DULO30CA OR; -/FENT50PA TD; -ASPI1TAB PO; +ASPI81TA26 PO; +CYMB1CAP5 OR; -ERRI0.35 PO; +FENT1DIS15 TD; +HYDR-3715 PO; -ISOVUE-M 300 61% 15ML VIAL (Q9967) As Ordered ONE; -LIDOCAINE 1% SDV INJ 30 ML VIAL As Ordered ONE; -NORCOTAB PO; +NORE0.358 PO; +ONDA-227; -SERO1TAB; +SERO1TAB PO; -ZOFR8TAB; -diazePAM 5 MG TAB As Ordered ONE; -diphenhydrAMINE 25 MG CAP As Ordered ONE; -methylPREDNISolone SUSP 40 MG/ML (DEPO-medrol) VIAL (J1030) As Ordered ONE; -oxyCODONE 5MG TAB As Ordered ONE
[2018-12-11] MEDS ORDERED: ROZE8TAB16 (16:24)
[2018-12-11] MEDS ORDERED: levETIRAcetam INJection 1,000 MG in D5W 100 ML IV ONE (17:15)
[2018-12-11 17:28] LABS: BASO % 0.3 % (0.0-1.0); EOS # 0.3 10^3/uL (0.0-0.50); EOS % 2.8 % (0.0-3.0); HEMATOCRIT 35.9 % (36.0-47.0); HEMOGLOBIN 12.1 g/dl (12.0-15.5); LYMPH # 2.2 10^3/uL (1.5-4.5); LYMPH % 24.2 % (24.0-44.0); MEAN CORPUSCULAR HEMOGLOBIN 27.9 pg (27.0-33.0); MEAN CORPUSCULAR HGB CONC 33.7 g/dl (32.0-36.5); MEAN CORPUSCULAR VOLUME 82.9 fl (80.0-96.0); MONO # 0.5 10^3/uL (0.0-0.8); MONO % 5.2 % (0.0-5.0); NEUTROPHILS # 6.2 10^3/uL (1.8-7.7); NEUTROPHILS % 67.3 % (36.0-66.0); PLATELET COUNT, AUTOMATED 226 10^3/uL (150-450); RED BLOOD COUNT 4.33 10^6/uL (4.00-5.40); WHITE BLOOD COUNT 9.3 10^3/uL (4.0-10.0)
[2018-12-11] MEDS ORDERED: PERCOCET 5MG/325MG TAB PO ONE (18:00)
[2018-12-11] MEDS ORDERED: CLINDAMYCIN 600 MG in APPROPRIATE DILUENT 1 EA IV ONE (18:00)
[2018-12-11 18:06] LABS: BLOOD UREA NITROGEN 4 MG/DL (7-18); CALCIUM LEVEL 8.5 MG/DL (8.5-10.1); CARBON DIOXIDE LEVEL 30 MEQ/L (21-32); CHLORIDE LEVEL 108 MEQ/L (98-107); CK-MB VALUE MASS < 1.0 NG/ML (<3.6); CPK CREATINE PHOSPHOKINASE 33 U/L (26-192); CREATININE FOR GFR 0.59 MG/DL (0.55-1.30); GLOMERULAR FILTRATION RATE > 60.0 (>60); GLUCOSE, FASTING 96 MG/DL (70-100); MB/CK RELATIVE INDEX 3.03 (< OR =4); POTASSIUM SERUM 3.6 MEQ/L (3.5-5.1); SODIUM LEVEL 142 MEQ/L (136-145); THYROID STIMULATING HORMONE 0.494 uIU/ML (0.358-3.740); TROPONIN I < 0.02 NG/ML (< 0.10)
[2018-12-11] MEDS ORDERED: diazePAM 5 MG TAB PO ONE (19:00)
[2018-12-11] MEDS ORDERED: CLEO300C2 PO (19:20)
[2018-12-11] MEDS ORDERED: KEPP10002 PO (19:28)
[2018-12-11] MEDS ORDERED: fentaNYL 100 MCG/2 ML INJECTION (J3010) IM ONE (19:30)
[2018-12-11] MEDS ORDERED: SODIUM CHLORIDE 0.9% INJ 10 ML SYR IV ONE (20:30)
[2018-12-11] MEDS ORDERED: NYSTOI TOP (21:06)
[2018-12-11 21:36] VITALS: BP 138/81
--- NOTE | 2018-12-12 08:23 | ECGEPIP ---
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
== END 2018-12-11 21:39 | disposition home or self-care (01) ==
LOC: M ED 16:02
DX: G40.909 Epilepsy, unspecified, not intractable, without status epilepticus (principal); L02.214 Cutaneous abscess of groin; F41.9 Anxiety disorder, unspecified; F32.9 Major depressive disorder, single episode, unspecified; M54.9 Dorsalgia, unspecified; Z87.442 Personal history of urinary calculi; I10 Essential (primary) hypertension; G43.909 Migraine, unspecified, not intractable, without status migrainosus; G90.50 Complex regional pain syndrome I, unspecified; Z79.899 Other long term (current) drug therapy; Z88.6 Allergy status to analgesic agent; Z88.8 Allergy status to other drugs, medicaments and biological substances; Z91.040 Latex allergy status; Z91.89 Other specified personal risk factors, not elsewhere classified; Z91.041 Radiographic dye allergy status; Z91.02 Food additives allergy status
CPT/HCPCS: 36415; 80048; 80180; 82550; 82553; 83605; 84443; 85025; 87040; 93005; 93041; 94760; 96365; 96366; 96367; 96372; 99285; J1953; J3010

== ENCOUNTER → 2018-12-24 | Outpatient (CLI) | payer OTHER ==
[~2018-12-24] MED LIST changes: +CLEO300C2 PO; +NYSTOI TOP; +ROZE8TAB16
== END ==
LOC: M PAIN 13:45
PROVIDERS: ATTEND Anesthesiology
DX: M96.1 Postlaminectomy syndrome, not elsewhere classified (principal); Z53.29 Procedure and treatment not carried out because of patient's decision for other reasons

== ENCOUNTER → 2018-12-27 | Outpatient (CLI) | payer OTHER ==
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
== END ==
LOC: M PAIN 12:30
PROVIDERS: ATTEND Anesthesiology
DX: M96.1 Postlaminectomy syndrome, not elsewhere classified (principal); M54.16 Radiculopathy, lumbar region; I10 Essential (primary) hypertension; R56.9 Unspecified convulsions; F43.10 Post-traumatic stress disorder, unspecified; Z79.899 Other long term (current) drug therapy; Z88.3 Allergy status to other anti-infective agents; Z88.5 Allergy status to narcotic agent; Z88.6 Allergy status to analgesic agent; Z88.8 Allergy status to other drugs, medicaments and biological substances; Z91.09 Other allergy status, other than to drugs and biological substances; Z91.040 Latex allergy status; Z91.013 Allergy to seafood; Z91.041 Radiographic dye allergy status; Z86.79 Personal history of other diseases of the circulatory system; Z87.891 Personal history of nicotine dependence; Z86.14 Personal history of Methicillin resistant Staphylococcus aureus infection

== ENCOUNTER → 2019-01-23 | Outpatient (CLI) | payer OTHER ==
--- NOTE | 2019-02-10 00:05 | ECWPNPC ---
PATIENT NAME: OSMANY SAMPSON : 1985 GENDER: FEMALE VISIT DATE: 01/23/2019 DISCHARGE DATE: 01/23/19 1301 VISIT LOCKED DATE TIME: PHYSICIAN: KAREN MERRILL MD RESOURCE: KAREN MERRILL MD REASON FOR APPOINTMENT 1. PRESEDATE HISTORY OF PRESENT ILLNESS HISTORY OF PRESENT ILLNESS: PAIN THE PATIENT DESCRIBES THE PAIN... 33 YEAR OLD FEMALE PATIENT WITH A HISTORY OF CHRONIC LOW BACK AND LEG PAIN. THE PATIENT DESCRIBES THE PAIN ACHING, BURNING, SHOOTING, SORE, TENDER, SHARP, AND CONTINUOUS WITH A PAIN SCORE OF 6-10/10 DEPENDING ON PHYSICAL ACTIVITY AND MEDICATION USE. THE PATIENT STATES THE PAIN BEGINS IN HER LOW BACK AND RADIATES DOWN HER LEGS, BUT THE LEFT LEG IS WORSE. THE PATIENT SAYS SHE HAS BEEN EXPERIENCING THIS PAIN FOR SEVERAL YEARS. THE PATIENT MENTIONED SHE HAS HAD TWO BACK SURGERIES DONE IN 2016 AND JANUARY 2018, WHICH SHE STATES HAS MADE HER CONDITION WORSEN. THE PATIENT SAYS DUE TO THE PAIN SHE HAS EXTREME DIFFICULTY PERFORMING HER DAILY ACTIVITIES SUCH COOKING, CLEANING, AND GROCERY SHOPPING. THE PATIENT IS CURRENTLY USING MORPHINE, OXYCODONE, AND TIZANIDINE FOR PAIN RELIEF. THE PATIENT SAYS SHE IS VERY ANXIOUS WITHOUT HER VALIUM PRESCRIPTION. THE PATIENT SAYS THE MRSA INFECTION OVER HER LEFT THIGH HAS CLEARED QUITE A LOT, BUT SHE CAN STILL FEEL A BUMP FROM THE SCAR TISSUE AND IS STILL LEAKING FLUID. PATIENT DENIES UNEXPLAINABLE WEIGHT LOSS, FEVER, CHILLS, NEW CHANGES ON HER URINARY OR BOWEL CONTROL. FALL RISK SCREENING: SCREENING :NO FALLS REPORTED IN THE LAST YEAR CURRENT MEDICATIONS TAKING MORPHINE SULFATE 15 MG TABLET 1 TABLET NEEDED ORALLY EVERY 8 HRS PRN PAIN MDD=3 TAKING OXYCODONE HCL 5 MG TABLET 1 TAB ORALLY EVERY 8 HOURS NEEDED MDD3 TAKING TIZANIDINE HCL 4 MG TABLET 1 CAPSULE NEEDED ORALLY FOR PAIN EVERY 8 HRS PRN MDD3 TAKING CARVEDILOL 12.5 MG TABLET ORALLY TWICE A DAY TAKING DILTIAZEM HCL 60 MG TABLET 1 TABLET BEFORE MEALS ORALLY THREE TIMES A DAY TAKING FLONASE 50 MCG/DOSE INHALER 1 SPRAY IN EACH NOSTRIL NASALLY ONCE A DAY TAKING ALBUTEROL 90 MCG/ACT AEROSOL SOLUTION INHALATION TAKING ALBUTEROL-IPRATROPIUM 2.5-0.5 MG/3ML SOLUTION 3 ML INHALATION EVERY 6 HRS TAKING SEROQUEL 50 MG TABLET 1 TABLET AT NIGHT ORALLY ONCE A NIGHT TAKING KEPPRA 1000 MG TABLET 1 TABLET ORALLY TWICE A DAY TAKING PRAZOSIN HCL 5 MG CAPSULE 2 CAPSULES AT BEDTIME ORALLY ONCE A DAY TAKING SYMBICORT 80-4.5 MCG/ACT AEROSOL 2 PUFFS INHALATION TWICE A DAY TAKING ZOFRAN ODT 4 MG TABLET DISINTEGRATING 1 TABLET ON THE TONGUE AND ALLOW TO DISSOLVE ORALLY EVERY 8 HOURS NEEDED MDD2 NOT-TAKING VALIUM 5 MG TABLET 1 TABLET NEEDED ORALLY FOR SPASMS EVERY 12 HOURS NEEDED MDD2 NOT-TAKING BACLOFEN 10 MG TABLET 1 TABLET WITH FOOD OR MILK ORALLY PRN FOR SPASMS AND PAIN EVERY 12 HRS MDD2 NOT-TAKING CLINDAMYCIN HCL 300 MG CAPSULE 1 CAPSULES ORALLY EVERY 6 HRS NOT-TAKING CARISOPRODOL 350 MG TABLET 1 TABLET NEEDED ORALLY FOR SPASMS AND PAIN EVERY 8 HOURS NEEDED MDD2 NOT-TAKING PHENTERMINE HCL 15 MG CAPSULE 1 CAPSULE ORALLY ONCE A DAY NOT-TAKING TESSALON PERLES 100 MG CAPSULE 1 CAPSULE NEEDED ORALLY THREE TIMES A DAY NOT-TAKING BETHANECHOL CHLORIDE 25 MG TABLET 1-2 TABLET AFTER MEALS ORALLY THREE TIMES A DAY NOT-TAKING PYRIDIUM 100 MG TABLET 1 TABLETS AFTER MEALS ORALLY THREE TIMES A DAY NEEDED MEDICATION LIST REVIEWED AND RECONCILED WITH THE PATIENT PAST MEDICAL HISTORY HYPERTENSION AFIB RSD FIBROMYALGIA SEIZURE DISORDER DDD PNEUMONIA PTSD 2 LUNG INFECTIONS CELLULITIS RIGHT LEG LARGE MASS ON RIGHT OVARY ALLERGIES TRAMADOL: RASH,RESP. - ALLERGY NEURONTIN: NAUSEA/VOMITING - ALLERGY TORADOL: ,RESP - ALLERGY MOTRIN: NAUSEA/VOMITING - ALLERGY PENNSAID: RASH - ALLERGY CONTRAST DYE: ANAPHYLAXIS - ALLERGY LATEX: RASH - ALLERGY PICC LINES: RASH - ALLERGY SEAFOODS: ANAPHYLAXIS - ALLERGY SURGICAL GLUE: RASH - ALLERGY BETADINE/IODINE: RASH - ALLERGY ADHESIVE TAPE: RASH - ALLERGY SURGICAL HISTORY 6 LAPAROSCOPIES 2 D&C'S PORT PLACEMENT ABLASION AND LOOP RECORDER GALL BLADDER APPENDECTOMY X2 TEETH REMOVED LAPAROSCOPY,D+C- 02/19/15 REMOVAL OF LOOP [id number] INFECTION,CELLULITIS AND ALLERGIC REACTION TO SURGICAL GLUE 07/03/15 BACK OR BACK SX 01/2018 FAMILY HISTORY FATHER: UNKNOWN MOTHER: ALIVE 58 YRS, DIAGNOSED WITH HYPERTENSION SIBLINGS: ALIVE SON(S): ALIVE 1 BROTHER(S) , 2 SISTER(S) - HEALTHY. 1 SON(S) , 1 DAUGHTER(S) - HEALTHY. DAUGHTER HAS ASTHMA. SOCIAL HISTORY GENERAL: TOBACCO USE ARE YOU A:FORMER SMOKER USES NON NICOTINE VAP NOW HOW LONG HAS IT BEEN SINCE YOU LAST SMOKED?1-5 YEARS VAPORYES PAIN CLINIC PFS, CLERGY, PUBLIC HEALTH REFERRALS PFS REFERRAL NEEDED?NO CLERGY REFERRAL NEEDED?NO PUBLIC HEALTH REFERRAL NEEDED?NO WAS THE PROVIDER NOTIFIED OF ANY PERTINENT INFO?NO HAS THE PATIENT BEEN EDUCATED REGARDING HIS/HER PLAN OF CARE?YES HAS THE PATIENT BEEN EDUCATED REGARDING PAIN, THE RISK FOR PAIN, THE IMPORTANCE OF EFFECTIVE PAIN MANAGEMENT, AND THE PAIN ASSESSMENT PROCESS?YES CAFFEINE CAFFEINE USE?YES HOW OFTEN AND HOW MUCH? 1-3 SODAS ADVANCE DIRECTIVE ADVANCE DIRECTIVE DISCUSSED WITH PATIENT:YES LILIA SAMPSON [phone] NONDENOMINATIONAL [id number] NONE LANGUAGE LANGUAGES SPOKEN:SWEDISH MARITAL STATUS: SINGLE. ALCOHOL SCREENING DID YOU HAVE A DRINK CONTAINING ALCOHOL IN THE PAST YEAR?NO POINTS0 INTERPRETATIONNEGATIVE RECREATIONAL DRUG USE DRUG USE?NO OCCUPATION: DISABLED. LEARNING BARRIERS / SPECIAL NEEDS BARRIERS TO LEARNING?NO HEARING IMPAIRED?NO VISION IMPAIRED?NO COGNITIVELY IMPAIRED?NO READINESS TO LEARN?YES LEARNING PREFERENCES?NO LEARNING CAPABILITIES PRESENT?YES EMOTIONAL BARRIERS?NO SPECIAL DEVICES?NO APPRAISER NEEDED?NO HOSPITALIZATION/MAJOR DIAGNOSTIC PROCEDURE HOSPITALIZATIONS W SURGERIES ICU-COSTOCHONDRITIS 05/31/14 [facility]. PAIN AND SWELLING,VOMITING 12/19/14 [facility] ER-BACK INJURY 10/18/15 REVIEW OF SYSTEMS REVIEWED BY: PROVIDER: KAREN MERRILL MD . CONSTITUTIONAL: ANY CHANGE IN YOUR MEDICAL CONDITION? NO . CHILLS NO . FEVER NO . INFECTION: DO YOU HAVE NEW INFECTIONS? NO . DO YOU HAVE HISTORY OF MRSA? YES IN LEFT UPPER THIGH AND "FEEL LIKE ITS COMIG BACK" . MUSCULOSKELETAL: ANY NEW PATTERNS OF PAIN OR NUMBNESS? NO . GASTROENTEROLOGY: ANY NEW CHANGE IN BOWEL CONTROL? NO . GENITOURINARY: ANY NEW CHANGE IN BLADDER CONTROL? NO . IS THERE A CHANCE YOU COULD BE ? NO . HEMATOLOGY/LYMPH: DO YOU TAKE ANY BLOOD THINNERS? (FOR EXAMPLE- COUMADIN, PLAVIX, AGGRENOX, PLATEL, PRADAXA, OR XARELTO) NO . WHEN WAS YOUR LAST DOSE? DATE: TIME: . NEUROLOGY: HAVE YOU FALLEN IN THE PAST 12 MONTHS? "FALLS ALL THE TIME" . ANY NEW EXTREMITY NUMBNESS OR WEAKNESS? NO . CARDIOLOGY: DO YOU HAVE A PACEMAKER OR DEFIBRILLATOR? NO . RESPIRATORY: HAVE YOU BEEN SICK IN THE PAST WEEK? NO . FEVER NO . FLU LIKE SYMPTOMS? NO . COUGH NO . INTEGUMENTARY: DO YOU HAVE ANY RASHES OR OPEN SORES? NO . ALLERGIC/IMMUNO: ARE YOU ALLERGIC TO IV DYE? NO . ANY NEW ALLERGIES? NO . PSYCHIATRIC: DO YOU HAVE THOUGHTS OF HURTING YOURSELF OR SOMEONE ELSE? NO . ARE YOU ABUSED, NEGLECTED, OR IN AN UNSAFE ENVIRONMENT? NO . ENDOCRINOLOGY: ARE YOU DIABETIC? NO . OTHER: DO YOU NEED ANY PRESCRIPTIONS? YES . IF YES, PLEASE LIST: ____ . ANY NEW PROBLEMS WITH YOUR MEDICATIONS? NO . WHEN DID YOU LAST EAT? ____ . WHEN DID YOU LAST DRINK? ____ . WHAT DID YOU LAST DRINK? ____ . NAME OF PERSON DRIVING YOU HOME? ____ . DO YOU HAVE ANY OTHER QUESTIONS OR CONCERNS NO . VITAL SIGNS WT 238.4 LBS, HT 5'5 1/2", BMI 39.06 INDEX, BP 171/93 MM HG, HR 109 /MIN, RR 18 /MIN, TEMP 98.7 F, OXYGEN SAT % 98%, SAFE IN ENV? (Y/N) YES, NA INITIALS SC 11:11, REVIEWED BY: OPHELIA. EXAMINATION GENERAL EXAMINATION: PATIENT IS ALERT O X 3 AND COOPERATIVE. SWELLING OF BOTH LEGS. LEFT LEG IS WEAKER AT EXTENSION AND FLEXION. ANTALGIC WALK. MRI OF THE LUMBAR SPINE DONE ON 09/14/2018 SHOWS BULGING DISCS AND LAMINECTOMY CHANGES. 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 SAMPSON' PAIN MANAGEMENT CASE. THE PATIENT IS HERE FOR A PRE-SEDATE CONSULT, HOWEVER DUE TO THE MRSA INFECTION STILL PRESENT WE DISCUSSED WAITING FOR THE INFECTION TO CLEAR BEFORE MOVING FORWARD WITH THE PROCEDURE AND THE PATIENT AGREED. THE PATIENT WILL GET A COPY OF HER LUMBAR MRI FROM [facility]. I WILL START THE PATIENT ON MORPHABOND ER TWICE DAILY TO REPLACE THE CURRENT MORPHINE THAT IS TAKEN THREE TIMES DAILY. THE GOAL IS TO REDUCE THE NEED FOR MORPHINE AND OXYCODONE. I ALSO PRESCRIBED VALIUM 5 MG 1 TABLET NEEDED TO HELP WITH THE PATIENT'S ANXIETY UNTIL SHE CAN BE SEEN BY HER NEW PSYCHIATRIST. I REFILLED TIZANIDINE FOR PAIN AND ZOFRAN FOR NAUSEA. ISTOP _# [id number] WAS REVIEWED. UTOX DONE ON 12/27/2018 SHOWS CONCURRENT RESULTS. THE PATIENT BROUGHT HER MEDICATION TODAY. I WOULD LIKE TO DISCUSS WITH THE PATIENT'S PRIMARY CARE PHYSICIAN AND PSYCHOLOGIST ABOUT THE PATIENT'S CASE AND MEDICATION MANAGEMENT. I WAS WITH THE PATIENT FOR MORE THAN 30 MINUTES AND MORE THAN HALF OF THAT TIME WAS SPENT DISCUSSING THE PATIENT'S CARE, MEDICATION, AND ADDRESSING ANY QUESTIONS. THE PATIENT WILL FOLLOW UP IN SEVERAL WEEKS. INSTRUCTIONS WERE GIVEN, QUESTIONS WERE ANSWERED, PATIENT REPORTS UNDERSTANDING AND AGREES WITH THE PLAN. I, HAWA MCCARTY, DOCUMENTED THE ABOVE INFORMATION ACTING A SCRIBE FOR DR. MERRILL. I HAVE REVIEWED THE ABOVE DOCUMENT, WRITTEN BY HAWA FERNANDEZ AND I VERIFY THAT IT IS ACCURATE. . OTHERS REFILL ZOFRAN ODT TABLET DISINTEGRATING, 4 MG, 1 TABLET ON THE TONGUE AND ALLOW TO DISSOLVE, ORALLY, EVERY 8 HOURS NEEDED MDD2, 30 DAY(S), 60, REFILLS 0 REFILL TIZANIDINE HCL TABLET, 4 MG, 1 CAPSULE NEEDED, ORALLY FOR PAIN, EVERY 8 HRS PRN MDD3, 30 DAYS, 90, REFILLS 1 START MORPHABOND ER TABLET ER 12 HOUR ABUSE-DETERRENT, 30 MG, 1 TABLET, ORALLY FOR PAIN, EVERY 12 HRS, 30 DAYS, 60 TABLET, REFILLS 0 REFILL VALIUM TABLET, 5 MG, 1 TABLET NEEDED, ORALLY FOR SPASMS, DAILY, 30 DAYS, 14, REFILLS 0 PREVENTIVE MEDICINE PAIN CLINIC TEACHING: MEDICATIONS NEW MEDICATION VALIUM WRITTEN INSTRUCTIONS PROVIDED AND DISCUSSED. NEW MEDICATION MORPHABOND DISCUSSED.. PROCEDURE CODES FA211 ESTABILISHED PATIENT [facility] FACILITY CHARGE G8427 CURRENT MEDS W/DOSAGES DOCUMENTED G8730 PAIN ASSESS POS TOOL F/U PLAN DOC DISPOSITION & COMMUNICATION FOLLOW UP PLEASE SCHEDULE AT END OF DAY TO OFFER MORE TIME (REASON: MEDS) ELECTRONICALLY SIGNED BY KAREN MERRILL MD, MD ON 02/09/2019 AT 02:36 PM EDT DISCLAIMER : THIS IS A VISIT SUMMARY EXTRACTED FROM THE [employer] CHART. IT IS NOT A COPY OF THE [employer] PROGRESS NOTE. MTDD
== END ==
LOC: M PAIN 11:00
PROVIDERS: ATTEND Anesthesiology
DX: M51.16 Intervertebral disc disorders with radiculopathy, lumbar region (principal); M51.17 Intervertebral disc disorders with radiculopathy, lumbosacral region; M96.1 Postlaminectomy syndrome, not elsewhere classified; Z86.14 Personal history of Methicillin resistant Staphylococcus aureus infection; I10 Essential (primary) hypertension; M79.7 Fibromyalgia; R56.9 Unspecified convulsions; Z86.59 Personal history of other mental and behavioral disorders; F17.290 Nicotine dependence, other tobacco product, uncomplicated; Z88.3 Allergy status to other anti-infective agents; Z88.5 Allergy status to narcotic agent; Z88.6 Allergy status to analgesic agent; Z88.8 Allergy status to other drugs, medicaments and biological substances; Z91.013 Allergy to seafood; Z91.041 Radiographic dye allergy status; Z91.040 Latex allergy status; Z91.09 Other allergy status, other than to drugs and biological substances; Z79.899 Other long term (current) drug therapy

== ENCOUNTER → 2019-02-15 | Outpatient (CLI) | payer OTHER ==
--- NOTE | 2019-02-23 23:33 | ECWPNPC ---
PATIENT NAME: OSMANY SAMPSON : 1985 GENDER: FEMALE VISIT DATE: 02/15/2019 DISCHARGE DATE: 02/15/19 1738 VISIT LOCKED DATE TIME: PHYSICIAN: KAREN MERRILL MD RESOURCE: KAREN MERRILL MD REASON FOR APPOINTMENT 1. MEDS -LAST APPOINTMENT OF DAY PER DR Peace HISTORY OF PRESENT ILLNESS HISTORY OF PRESENT ILLNESS: PAIN THE PATIENT DESCRIBES THE PAIN... 33 YEAR OLD FEMALE PATIENT WITH A HISTORY OF CHRONIC LOW BACK AND LEG PAIN. THE PATIENT DESCRIBES THE PAIN ACHING, BURNING, SHOOTING, PINS AND NEEDLES, SORE, SHARP, DAILY, AND CONTINUOUS WITH A PAIN SCORE OF 8-10/10 DEPENDING ON PHYSICAL ACTIVITY. THE PATIENT SAYS SHE HAS BEEN SUFFERING FROM THIS PAIN FOR MANY YEARS. THE PATIENT STATES SHE HAS HAD SEVERAL BACK SURGERIES DONE IN THE PAST, YET THE PAIN STILL PERSISTS. THE PATIENT SAYS SHE IS HAVING SLEEP DIFFICULTIES DUE TO THE LOW BACK AND HIP PAIN THAT CAUSES HER TO WAKE UP OFTEN THROUGH EACH NIGHT. THE PATIENT IS CURRENTLY USING MORPHINE ER 30 MG AND TIZANIDINE 4 MG, WHICH SHE SAYS THE MEDICATION HELPS WITH HER PAIN AND SPASTICITY. THE PATIENT IS CURRENTLY WAITING FOR HER INITIAL APPOINTMENT WITH THE PSYCHIATRIST TO SEE ABOUT VALIUM PRESCRIPTION. THE PATIENT SAYS SHE HAS ONLY TAKEN THE VALIUM THAT WAS PRESCRIBED TO HER AT THE LAST APPOINTMENT IN DIRE MOMENTS. THE PATIENT STATES SHE HAS TRIED GABAPENTIN IN THE PAST AND IT GAVE HER SEVERE VOMITING AND OTHER SIDE EFFECTS. THE PATIENT MENTIONS SHE IS EXPERIENCING SWELLING IN HER CALVES AND FEET. THE PATIENT HAD A MRSA INFECTION RECENTLY AND HAS BEEN WAITING FOR IT TO CLEAR UP, HOWEVER SHE BELIEVES THERE IS STILL A SAC LEFT OVER THAT NEEDS TO BE CHECKED BY HER PRIMARY CARE PHYSICIAN TO SEE IF IT IS STILL INFECTED OR JUST SCAR TISSUE. PATIENT DENIES UNEXPLAINABLE WEIGHT LOSS, FEVER, CHILLS, NEW CHANGES ON HER URINARY OR BOWEL CONTROL. FALL RISK SCREENING: SCREENING :NO FALLS REPORTED IN THE LAST YEAR CURRENT MEDICATIONS TAKING ZOFRAN ODT 4 MG TABLET DISINTEGRATING 1 TABLET ON THE TONGUE AND ALLOW TO DISSOLVE ORALLY EVERY 8 HOURS NEEDED MDD2 TAKING TIZANIDINE HCL 4 MG TABLET 1 CAPSULE NEEDED ORALLY FOR PAIN EVERY 8 HRS PRN MDD3 TAKING VALIUM 5 MG TABLET 1 TABLET NEEDED ORALLY FOR SPASMS DAILY TAKING MORPHINE SULFATE ER 30 MG TABLET EXTENDED RELEASE 1 TABLET ORALLY FOR PAIN EVERY 12 HRS TAKING CARVEDILOL 12.5 MG TABLET ORALLY TWICE A DAY TAKING DILTIAZEM HCL 60 MG TABLET 1 TABLET BEFORE MEALS ORALLY THREE TIMES A DAY TAKING FLONASE 50 MCG/DOSE INHALER 1 SPRAY IN EACH NOSTRIL NASALLY ONCE A DAY TAKING ALBUTEROL 90 MCG/ACT AEROSOL SOLUTION INHALATION TAKING ALBUTEROL-IPRATROPIUM 2.5-0.5 MG/3ML SOLUTION 3 ML INHALATION EVERY 6 HRS TAKING SEROQUEL 50 MG TABLET 1 TABLET AT NIGHT ORALLY ONCE A NIGHT TAKING KEPPRA 1000 MG TABLET 1 TABLET ORALLY TWICE A DAY TAKING PRAZOSIN HCL 5 MG CAPSULE 2 CAPSULES AT BEDTIME ORALLY ONCE A DAY TAKING SYMBICORT 80-4.5 MCG/ACT AEROSOL 2 PUFFS INHALATION TWICE A DAY TAKING MORPHINE SULFATE 15 MG TABLET 1 TABLET DAILY NEEDED ORALLY MDD=1 NOT-TAKING MORPHABOND ER 30 MG TABLET ER 12 HOUR ABUSE-DETERRENT 1 TABLET ORALLY FOR PAIN EVERY 12 HRS NOT-TAKING OXYCODONE HCL 5 MG TABLET 1 TAB ORALLY EVERY 8 HOURS NEEDED MDD3 NOT-TAKING BACLOFEN 10 MG TABLET 1 TABLET WITH FOOD OR MILK ORALLY PRN FOR SPASMS AND PAIN EVERY 12 HRS MDD2 NOT-TAKING CLINDAMYCIN HCL 300 MG CAPSULE 1 CAPSULES ORALLY EVERY 6 HRS NOT-TAKING CARISOPRODOL 350 MG TABLET 1 TABLET NEEDED ORALLY FOR SPASMS AND PAIN EVERY 8 HOURS NEEDED MDD2 NOT-TAKING PHENTERMINE HCL 15 MG CAPSULE 1 CAPSULE ORALLY ONCE A DAY NOT-TAKING TESSALON PERLES 100 MG CAPSULE 1 CAPSULE NEEDED ORALLY THREE TIMES A DAY NOT-TAKING BETHANECHOL CHLORIDE 25 MG TABLET 1-2 TABLET AFTER MEALS ORALLY THREE TIMES A DAY NOT-TAKING PYRIDIUM 100 MG TABLET 1 TABLETS AFTER MEALS ORALLY THREE TIMES A DAY NEEDED MEDICATION LIST REVIEWED AND RECONCILED WITH THE PATIENT PAST MEDICAL HISTORY HYPERTENSION AFIB RSD FIBROMYALGIA SEIZURE DISORDER DDD PNEUMONIA PTSD 2 LUNG INFECTIONS CELLULITIS RIGHT LEG LARGE MASS ON RIGHT OVARY ALLERGIES TRAMADOL: RASH,RESP. - ALLERGY NEURONTIN: NAUSEA/VOMITING - ALLERGY TORADOL: ,RESP - ALLERGY MOTRIN: NAUSEA/VOMITING - ALLERGY PENNSAID: RASH - ALLERGY CONTRAST DYE: ANAPHYLAXIS - ALLERGY LATEX: RASH - ALLERGY PICC LINES: RASH - ALLERGY SEAFOODS: ANAPHYLAXIS - ALLERGY SURGICAL GLUE: RASH - ALLERGY BETADINE/IODINE: RASH - ALLERGY ADHESIVE TAPE: RASH - ALLERGY SURGICAL HISTORY 6 LAPAROSCOPIES 2 D&C'S PORT PLACEMENT ABLASION AND LOOP RECORDER GALL BLADDER APPENDECTOMY X2 TEETH REMOVED LAPAROSCOPY,D+C- 02/19/15 REMOVAL OF LOOP [id number] INFECTION,CELLULITIS AND ALLERGIC REACTION TO SURGICAL GLUE 07/03/15 BACK OR BACK SX 01/2018 FAMILY HISTORY FATHER: UNKNOWN MOTHER: ALIVE 58 YRS, DIAGNOSED WITH HYPERTENSION SIBLINGS: ALIVE SON(S): ALIVE 1 BROTHER(S) , 2 SISTER(S) - HEALTHY. 1 SON(S) , 1 DAUGHTER(S) - HEALTHY. DAUGHTER HAS ASTHMA. SOCIAL HISTORY GENERAL: TOBACCO USE ARE YOU A:FORMER SMOKER USES NON NICOTINE VAP NOW HOW LONG HAS IT BEEN SINCE YOU LAST SMOKED?1-5 YEARS [facility] PFS, CLERGY, PUBLIC HEALTH REFERRALS PFS REFERRAL NEEDED?NO CLERGY REFERRAL NEEDED?NO PUBLIC HEALTH REFERRAL NEEDED?NO WAS THE PROVIDER NOTIFIED OF ANY PERTINENT INFO?NO HAS THE PATIENT BEEN EDUCATED REGARDING HIS/HER PLAN OF CARE?YES HAS THE PATIENT BEEN EDUCATED REGARDING PAIN, THE RISK FOR PAIN, THE IMPORTANCE OF EFFECTIVE PAIN MANAGEMENT, AND THE PAIN ASSESSMENT PROCESS?YES LATEX QUESTIONNAIRE LATEX ALLERGY : HAVE YOU EVER DEVELOPED ANY TYPE OF REACTION AFTER HANDLING LATEX PRODUCTS SUCH RUBBER GLOVES, CONDOMS, DIAPHRAGMS, BALLOONS, SOCKS, OR UNDERWEAR?YES PT IS ALLERGIC TO LATEX DATE ASKED : 02/15/2019 CAFFEINE CAFFEINE USE?YES HOW OFTEN AND HOW MUCH? 1-3 SODAS ADVANCE DIRECTIVE ADVANCE DIRECTIVE DISCUSSED WITH PATIENT:YES LILIA SAMPSON [phone] WORSHIP [id number] NONE LANGUAGE LANGUAGES SPOKEN:WELSH MARITAL STATUS: SINGLE. ALCOHOL SCREENING DID YOU HAVE A DRINK CONTAINING ALCOHOL IN THE PAST YEAR?NO POINTS0 INTERPRETATIONNEGATIVE RECREATIONAL DRUG USE DRUG USE?NO OCCUPATION: DISABLED. LEARNING BARRIERS / SPECIAL NEEDS BARRIERS TO LEARNING?NO HEARING IMPAIRED?NO VISION IMPAIRED?NO COGNITIVELY IMPAIRED?NO READINESS TO LEARN?YES LEARNING PREFERENCES?NO LEARNING CAPABILITIES PRESENT?YES EMOTIONAL BARRIERS?NO SPECIAL DEVICES?NO FIRE OPERATIONS FORESTER NEEDED?NO REVIEWED [facility] PT 02/15/19 1519 BV. HOSPITALIZATION/MAJOR DIAGNOSTIC PROCEDURE HOSPITALIZATIONS W SURGERIES ICU-COSTOCHONDRITIS 05/31/14 [facility]-ABD. PAIN AND SWELLING,VOMITING 12/19/14 [facility] ER-BACK INJURY 10/18/15 REVIEW OF SYSTEMS REVIEWED BY: PROVIDER: KAREN MERRILL MD . CONSTITUTIONAL: ANY CHANGE IN YOUR MEDICAL CONDITION? YES, PT HAS NOTICED INCREASED SWELLING IN BILATERAL LEGS AND BILATERAL HANDS FOR THE PAST 2 MONTHS . CHILLS NO . FEVER NO . INFECTION: DO YOU HAVE NEW INFECTIONS? NO . DO YOU HAVE HISTORY OF MRSA? NO . MUSCULOSKELETAL: ANY NEW PATTERNS OF PAIN OR NUMBNESS? NO . GASTROENTEROLOGY: ANY NEW CHANGE IN BOWEL CONTROL? NO . GENITOURINARY: ANY NEW CHANGE IN BLADDER CONTROL? NO . IS THERE A CHANCE YOU COULD BE ? NO . HEMATOLOGY/LYMPH: DO YOU TAKE ANY BLOOD THINNERS? (FOR EXAMPLE- COUMADIN, PLAVIX, AGGRENOX, PLATEL, PRADAXA, OR XARELTO) NO . WHEN WAS YOUR LAST DOSE? DATE: TIME: . NEUROLOGY: HAVE YOU FALLEN IN THE PAST 12 MONTHS? NO . ANY NEW EXTREMITY NUMBNESS OR WEAKNESS? NO . CARDIOLOGY: DO YOU HAVE A PACEMAKER OR DEFIBRILLATOR? NO . RESPIRATORY: HAVE YOU BEEN SICK IN THE PAST WEEK? NO . FEVER NO . FLU LIKE SYMPTOMS? NO . COUGH NO . INTEGUMENTARY: DO YOU HAVE ANY RASHES OR OPEN SORES? NO . ALLERGIC/IMMUNO: ARE YOU ALLERGIC TO IV DYE? YES, IV DYE . ANY NEW ALLERGIES? NO . PSYCHIATRIC: DO YOU HAVE THOUGHTS OF HURTING YOURSELF OR SOMEONE ELSE? NO . ARE YOU ABUSED, NEGLECTED, OR IN AN UNSAFE ENVIRONMENT? NO . ENDOCRINOLOGY: ARE YOU DIABETIC? NO . OTHER: DO YOU NEED ANY PRESCRIPTIONS? NO . IF YES, PLEASE LIST: ____ . ANY NEW PROBLEMS WITH YOUR MEDICATIONS? NO . WHEN DID YOU LAST EAT? ____ . WHEN DID YOU LAST DRINK? ____ . WHAT DID YOU LAST DRINK? ____ . NAME OF PERSON DRIVING YOU HOME? ____ . DO YOU HAVE ANY OTHER QUESTIONS OR CONCERNS NO . VITAL SIGNS WT 248.4 LBS, HT 5'5 1/2", BMI 40.70 INDEX, BP 148/87 MM HG, HR 70 /MIN, RR 18 /MIN, TEMP 97.4 F, OXYGEN SAT % 99%, NA INITIALS SC 15:07, REVIEWED BY: BV. EXAMINATION GENERAL EXAMINATION: PATIENT IS ALERT O X 3 AND COOPERATIVE. LEFT LEG IS WEAKER AT EXTENSION AND FLEXION. MRI OF THE LUMBAR SPINE DONE ON 09/14/2018 SHOWS LAMINECTOMY CHANGES. ASSESSMENTS LUMBAR POST-LAMINECTOMY SYNDROME - M96.1 (PRIMARY) TREATMENT LUMBAR POST-LAMINECTOMY SYNDROME CLINICAL NOTES: WE DISCUSSED SEVERAL ISSUES WITH MS. SAMPSON' PAIN MANAGEMENT CASE. THE PATIENT WILL CONTINUE WITH HER CURRENT MEDICATION REGIMEN IT IS HELPING WITH HER PAIN AND SPASTICITY. I REFILLED THE MORPHINE ER, TIZANIDINE, AND VALIUM. THE PATIENT WILL BE SEEN BY A NEW PSYCHIATRIST AT AN UPCOMING VISIT TO SPEAK ABOUT GETTING HER VALIUM PRESCRIBED THERE. THE PATIENT IS HAVING SLEEP DIFFICULTIES DUE TO HER PAIN AND MENTIONED SHE HAS TRIED GABAPENTIN IN THE PAST THAT CAUSED SIDE EFFECTS FOR HER, HOWEVER WE AGREED TO GIVE GABAPENTIN ANOTHER TRY THE PAST SIDE EFFECTS MAY HAVE BEEN DUE TO GASTRIC ISSUES. I WANT TO NOW FOCUS ON FINDING A SLEEP SOLUTION FOR THE PATIENT, THEREFORE I WILL START HER ON GABAPENTIN 100 MG 1 CAPSULE DAILY. I PROVIDED THE PATIENT WITH A MEDICATION SCHEDULE TO SLOWLY BUILD UP TO 3 CAPSULES DAILY. I DISCUSSED THE RISKS ASSOCIATED WITH THE USE OF OPIOIDS INCLUDING THE POSSIBLE DEVELOPMENT OF ADDICTION OR TOLERANCE. THE PATIENT DENIES THE USE OF ANY ILLEGAL SUBSTANCES INCLUDING MARIHUANA. THE PATIENT REPORTS UNDERSTANDING AND FOLLOWING THE AGREEMENTS OF THE NARCOTIC AGREEMENT SIGNED WITH OUR PRACTICE. THE PATIENT BROUGHT HER MEDICATION TO TODAY'S VISIT. UTOX DONE ON 12/27/2018 SHOWS CONCURRENT RESULTS. ISTOP _# [id number] WAS REVIEWED. THE PATIENT WILL FOLLOW UP IN 4 WEEKS. INSTRUCTIONS WERE GIVEN, QUESTIONS WERE ANSWERED, PATIENT REPORTS UNDERSTANDING AND AGREES WITH THE PLAN. I, HAWA MCCARTY, DOCUMENTED THE ABOVE INFORMATION ACTING A SCRIBE FOR DR. MERRILL. I HAVE REVIEWED THE ABOVE DOCUMENT, WRITTEN BY HAWA FERNANDEZ AND I VERIFY THAT IT IS ACCURATE. . OTHERS START GABAPENTIN CAPSULE, 100 MG, 1 CAPSULE, ORALLY FOR PAIN, THREE TIMES DAILY, 30 DAY(S), 90, REFILLS 1 REFILL MORPHINE SULFATE ER TABLET EXTENDED RELEASE, 30 MG, 1 TABLET, ORALLY FOR PAIN, EVERY 12 HRS, 30 DAYS, 60 TABLET, REFILLS 0 REFILL TIZANIDINE HCL TABLET, 4 MG, 1 CAPSULE NEEDED, ORALLY FOR PAIN, EVERY 8 HRS PRN MDD3, 30 DAYS, 90, REFILLS 1 REFILL VALIUM TABLET, 5 MG, 1 TABLET NEEDED, ORALLY FOR SPASMS, DAILY, 30 DAYS, 14, REFILLS 0 REFILL MORPHINE SULFATE TABLET, 15 MG, 1 TABLET DAILY NEEDED, ORALLY, MDD=1, 30 DAY(S), 30, REFILLS 0 PROCEDURE CODES FA211 ESTABILISHED PATIENT [facility] FACILITY CHARGE G8427 CURRENT MEDS W/DOSAGES DOCUMENTED G8730 PAIN ASSESS POS TOOL F/U PLAN DOC DISPOSITION & COMMUNICATION FOLLOW UP 4 WEEKS (REASON: MEDS) ELECTRONICALLY SIGNED BY KAREN MERRILL MD, MD ON 02/23/2019 AT 07:07 PM EDT DISCLAIMER : THIS IS A VISIT SUMMARY EXTRACTED FROM THE [employer] CHART. IT IS NOT A COPY OF THE [employer] PROGRESS NOTE. MTDD
== END ==
LOC: M PAIN 14:45
PROVIDERS: ATTEND Anesthesiology
DX: M96.1 Postlaminectomy syndrome, not elsewhere classified (principal); Z86.14 Personal history of Methicillin resistant Staphylococcus aureus infection; I10 Essential (primary) hypertension; I48.91 Unspecified atrial fibrillation; M79.7 Fibromyalgia; G40.909 Epilepsy, unspecified, not intractable, without status epilepticus; Z86.59 Personal history of other mental and behavioral disorders; F17.290 Nicotine dependence, other tobacco product, uncomplicated; Z88.3 Allergy status to other anti-infective agents; Z88.5 Allergy status to narcotic agent; Z88.6 Allergy status to analgesic agent; Z88.8 Allergy status to other drugs, medicaments and biological substances; Z91.013 Allergy to seafood; Z91.040 Latex allergy status; Z91.041 Radiographic dye allergy status; Z91.09 Other allergy status, other than to drugs and biological substances; E66.01 Morbid (severe) obesity due to excess calories; Z68.41 Body mass index [BMI] 40.0-44.9, adult; Z79.891 Long term (current) use of opiate analgesic; Z79.899 Other long term (current) drug therapy

== ENCOUNTER → 2019-03-20 | Outpatient (CLI) | payer MEDICAID | LOC: M OUTALCOH 08:20 | PROVIDERS: ATTEND Psychiatry & Neurology Psychiatry | DX: Z03.89 Encounter for observation for other suspected diseases and conditions ruled out (principal) ==

== ENCOUNTER → 2019-03-29 | Outpatient (CLI) | payer OTHER ==
--- NOTE | 2019-04-01 23:55 | ECWPNPC ---
PATIENT NAME: OSMANY SAMPSON : 1985 GENDER: FEMALE VISIT DATE: 03/29/2019 DISCHARGE DATE: 03/29/19 1459 VISIT LOCKED DATE TIME: PHYSICIAN: MONICA CARLISLE RESOURCE: MONICA CARLISLE REASON FOR APPOINTMENT 1. PER DR. Peace-PATIENT CHECKING IN HISTORY OF PRESENT ILLNESS HISTORY OF PRESENT ILLNESS: PAIN THE PATIENT DESCRIBES THE PAIN... 33 YEAR OLD FEMALE IN FOR CHRONIC PAIN FOLLOW UP. SHE RATES HER PAIN AT A 10/10 CURRENTLY AND HAS REQUESTED AN INCREASE IN HER MORPHINE IR. SHE DENIES MED SIDE EFFECTS. FALL RISK SCREENING: SCREENING :NO FALLS REPORTED IN THE LAST YEAR CURRENT MEDICATIONS TAKING MORPHINE SULFATE ER 30 MG TABLET EXTENDED RELEASE 1 TABLET ORALLY FOR PAIN EVERY 12 HRS TAKING TIZANIDINE HCL 4 MG TABLET 1 CAPSULE NEEDED ORALLY FOR PAIN EVERY 8 HRS PRN MDD3 TAKING VALIUM 5 MG TABLET 1 TABLET NEEDED ORALLY FOR SPASMS DAILY TAKING MORPHINE SULFATE 15 MG TABLET 1 TABLET DAILY NEEDED ORALLY MDD=1 TAKING ZOFRAN ODT 4 MG TABLET DISINTEGRATING 1 TABLET ON THE TONGUE AND ALLOW TO DISSOLVE ORALLY EVERY 8 HOURS NEEDED MDD2 TAKING CARVEDILOL 12.5 MG TABLET ORALLY TWICE A DAY TAKING DILTIAZEM HCL 60 MG TABLET 1 TABLET BEFORE MEALS ORALLY THREE TIMES A DAY TAKING FLONASE 50 MCG/DOSE INHALER 1 SPRAY IN EACH NOSTRIL NASALLY ONCE A DAY TAKING ALBUTEROL 90 MCG/ACT AEROSOL SOLUTION 2 PUFFS INHALATION DIRECTED TAKING ALBUTEROL-IPRATROPIUM 2.5-0.5 MG/3ML SOLUTION 3 ML INHALATION EVERY 6 HRS TAKING SEROQUEL 50 MG TABLET 1 TABLET AT NIGHT ORALLY ONCE A NIGHT TAKING KEPPRA 1000 MG TABLET 1 TABLET ORALLY TWICE A DAY TAKING PRAZOSIN HCL 5 MG CAPSULE 2 CAPSULES AT BEDTIME ORALLY ONCE A DAY TAKING SYMBICORT 80-4.5 MCG/ACT AEROSOL 2 PUFFS INHALATION TWICE A DAY NOT-TAKING GABAPENTIN 100 MG CAPSULE 1 CAPSULE ORALLY FOR PAIN THREE TIMES DAILY NOT-TAKING MORPHABOND ER 30 MG TABLET ER 12 HOUR ABUSE-DETERRENT 1 TABLET ORALLY FOR PAIN EVERY 12 HRS NOT-TAKING OXYCODONE HCL 5 MG TABLET 1 TAB ORALLY EVERY 8 HOURS NEEDED MDD3 NOT-TAKING BACLOFEN 10 MG TABLET 1 TABLET WITH FOOD OR MILK ORALLY PRN FOR SPASMS AND PAIN EVERY 12 HRS MDD2 NOT-TAKING CLINDAMYCIN HCL 300 MG CAPSULE 1 CAPSULES ORALLY EVERY 6 HRS NOT-TAKING CARISOPRODOL 350 MG TABLET 1 TABLET NEEDED ORALLY FOR SPASMS AND PAIN EVERY 8 HOURS NEEDED MDD2 NOT-TAKING PHENTERMINE HCL 15 MG CAPSULE 1 CAPSULE ORALLY ONCE A DAY NOT-TAKING TESSALON PERLES 100 MG CAPSULE 1 CAPSULE NEEDED ORALLY THREE TIMES A DAY NOT-TAKING BETHANECHOL CHLORIDE 25 MG TABLET 1-2 TABLET AFTER MEALS ORALLY THREE TIMES A DAY NOT-TAKING PYRIDIUM 100 MG TABLET 1 TABLETS AFTER MEALS ORALLY THREE TIMES A DAY NEEDED MEDICATION LIST REVIEWED AND RECONCILED WITH THE PATIENT PAST MEDICAL HISTORY HYPERTENSION AFIB RSD FIBROMYALGIA SEIZURE DISORDER DDD PNEUMONIA PTSD 2 LUNG INFECTIONS CELLULITIS RIGHT LEG LARGE MASS ON RIGHT OVARY ALLERGIES TRAMADOL: RASH,RESP. - ALLERGY NEURONTIN: NAUSEA/VOMITING - ALLERGY TORADOL: ,RESP - ALLERGY MOTRIN: NAUSEA/VOMITING - ALLERGY PENNSAID: RASH - ALLERGY CONTRAST DYE: ANAPHYLAXIS - ALLERGY LATEX: RASH - ALLERGY PICC LINES: RASH - ALLERGY SEAFOODS: ANAPHYLAXIS - ALLERGY SURGICAL GLUE: RASH - ALLERGY BETADINE/IODINE: RASH - ALLERGY ADHESIVE TAPE: RASH - ALLERGY SURGICAL HISTORY 6 LAPAROSCOPIES 2 D&C'S PORT PLACEMENT ABLATION AND LOOP RECORDER GALL BLADDER APPENDECTOMY X2 TEETH REMOVED LAPAROSCOPY,D+C- 02/19/15 REMOVAL OF LOOP [id number] INFECTION,CELLULITIS AND ALLERGIC REACTION TO SURGICAL GLUE 07/03/15 BACK OR BACK SX 01/2018 FAMILY HISTORY FATHER: UNKNOWN MOTHER: ALIVE 58 YRS, DIAGNOSED WITH HYPERTENSION SIBLINGS: ALIVE SON(S): ALIVE 1 BROTHER(S) , 2 SISTER(S) - HEALTHY. 1 SON(S) , 1 DAUGHTER(S) - HEALTHY. BOTH CHILDREN HAVE ASTHMA. SOCIAL HISTORY GENERAL: TOBACCO USE ARE YOU A:FORMER SMOKER USES NON NICOTINE VAP NOW HOW LONG HAS IT BEEN SINCE YOU LAST SMOKED?1-5 YEARS [facility] PFS, CLERGY, PUBLIC HEALTH REFERRALS PFS REFERRAL NEEDED?NO CLERGY REFERRAL NEEDED?NO PUBLIC HEALTH REFERRAL NEEDED?NO WAS THE PROVIDER NOTIFIED OF ANY PERTINENT INFO?NO HAS THE PATIENT BEEN EDUCATED REGARDING HIS/HER PLAN OF CARE?YES HAS THE PATIENT BEEN EDUCATED REGARDING PAIN, THE RISK FOR PAIN, THE IMPORTANCE OF EFFECTIVE PAIN MANAGEMENT, AND THE PAIN ASSESSMENT PROCESS?YES LATEX QUESTIONNAIRE LATEX ALLERGY : HAVE YOU EVER DEVELOPED ANY TYPE OF REACTION AFTER HANDLING LATEX PRODUCTS SUCH RUBBER GLOVES, CONDOMS, DIAPHRAGMS, BALLOONS, SOCKS, OR UNDERWEAR?YES PT IS ALLERGIC TO LATEX DATE ASKED : 02/15/2019 CAFFEINE CAFFEINE USE?YES HOW OFTEN AND HOW MUCH? 1-3 SODAS ADVANCE DIRECTIVE ADVANCE DIRECTIVE DISCUSSED WITH PATIENT:YES LILIA SAMPSON [phone] TAOIST [id number] JAIN LANGUAGE LANGUAGES SPOKEN:KOREAN MARITAL STATUS: SINGLE. ALCOHOL SCREENING DID YOU HAVE A DRINK CONTAINING ALCOHOL IN THE PAST YEAR?NO POINTS0 INTERPRETATIONNEGATIVE RECREATIONAL DRUG USE DRUG USE?NO OCCUPATION: DISABLED. LEARNING BARRIERS / SPECIAL NEEDS BARRIERS TO LEARNING?NO HEARING IMPAIRED?NO VISION IMPAIRED?NO COGNITIVELY IMPAIRED?NO READINESS TO LEARN?YES LEARNING PREFERENCES?NO LEARNING CAPABILITIES PRESENT?YES EMOTIONAL BARRIERS?NO SPECIAL DEVICES?NO POCKET CUTTER NEEDED?NO REVIEWED [facility] PT 02/15/19 1519 BV. HOSPITALIZATION/MAJOR DIAGNOSTIC PROCEDURE HOSPITALIZATIONS W SURGERIES ICU-COSTOCHONDRITIS 05/31/14 [facility]-ABD. PAIN AND SWELLING,VOMITING 12/19/14 [facility] ER-BACK INJURY 10/18/15 REVIEW OF SYSTEMS REVIEWED BY: PROVIDER: ZAID BARRON-C . CONSTITUTIONAL: ANY CHANGE IN YOUR MEDICAL CONDITION? NO . CHILLS NO . FEVER NO . INFECTION: DO YOU HAVE NEW INFECTIONS? NO . DO YOU HAVE HISTORY OF MRSA? YES . MUSCULOSKELETAL: ANY NEW PATTERNS OF PAIN OR NUMBNESS? NO . GASTROENTEROLOGY: ANY NEW CHANGE IN BOWEL CONTROL? NO . GENITOURINARY: ANY NEW CHANGE IN BLADDER CONTROL? NO . IS THERE A CHANCE YOU COULD BE ? NO . HEMATOLOGY/LYMPH: DO YOU TAKE ANY BLOOD THINNERS? (FOR EXAMPLE- COUMADIN, PLAVIX, AGGRENOX, PLATEL, PRADAXA, OR XARELTO) NO . WHEN WAS YOUR LAST DOSE? DATE: TIME: . NEUROLOGY: HAVE YOU FALLEN IN THE PAST 12 MONTHS? YES . ANY NEW EXTREMITY NUMBNESS OR WEAKNESS? NO . CARDIOLOGY: DO YOU HAVE A PACEMAKER OR DEFIBRILLATOR? NO . RESPIRATORY: HAVE YOU BEEN SICK IN THE PAST WEEK? NO . FEVER NO . FLU LIKE SYMPTOMS? NO . COUGH NO . INTEGUMENTARY: DO YOU HAVE ANY RASHES OR OPEN SORES? NO . ALLERGIC/IMMUNO: ARE YOU ALLERGIC TO IV DYE? YES . ANY NEW ALLERGIES? NO . PSYCHIATRIC: DO YOU HAVE THOUGHTS OF HURTING YOURSELF OR SOMEONE ELSE? NO . ARE YOU ABUSED, NEGLECTED, OR IN AN UNSAFE ENVIRONMENT? NO . ENDOCRINOLOGY: ARE YOU DIABETIC? NO . OTHER: DO YOU NEED ANY PRESCRIPTIONS? YES - TIZANIDINE, ZOFRAN, MORPHINE SHORT AND LONG-ACTING, VALIUM . IF YES, PLEASE LIST: ____ . ANY NEW PROBLEMS WITH YOUR MEDICATIONS? NO . WHEN DID YOU LAST EAT? ____ . WHEN DID YOU LAST DRINK? ____ . WHAT DID YOU LAST DRINK? ____ . NAME OF PERSON DRIVING YOU HOME? ____ . DO YOU HAVE ANY OTHER QUESTIONS OR CONCERNS NO . VITAL SIGNS WT 231 LBS, HT 5'5 1/2", BMI 37.85 INDEX, BP 147/88 MM HG, HR 86 /MIN, RR 18 /MIN, TEMP 97.8 F, OXYGEN SAT % 98%, NA INITIALS SC 14:09, REVIEWED BY: BARBARA. EXAMINATION GENERAL EXAMINATION: GENERALNO ACUTE DISTRESS, WELL NOURISHED AND HYDRATED. PSYCHAPPROPRIATE MOOD AND AFFECT . LUNGS:CLEAR TO AUSCULTATION BILATERALLY, NO WHEEZES, RHONCHI, RALES. HEART:NO MURMURS, REGULAR RATE AND RHYTHM. ASSESSMENTS INTERVERTEBRAL DISC DISORDER WITH RADICULOPATHY OF LUMBAR REGION - M51.16 (PRIMARY) TREATMENT INTERVERTEBRAL DISC DISORDER WITH RADICULOPATHY OF LUMBAR REGION CLINICAL NOTES: 33 YEAR OLD FEMALE IN FOR CHRONIC PAIN FOLLOW UP. GIVEN PRESENTING SYMPTOMS AND RESULTS OF PHYSICAL EXAMINATION RECOMMENDED SHE CONTACT THE [facility] REGARDING THE REFERRAL THAT WAS PLACED, INFORMED PATIENT THIS SYSTEMS ACCOUNTANT WOULD DISCUSS MED INCREASE WITH DR. ESTEBAN. FURTHER RECOMMENDED FOLLOW UP IN 1 MONTH. PATIENT HAS EXPRESSED UNDERSTANDING OF AND WAS IN AGREEMENT WITH TREATMENT PLAN. GIVEN TIME TO ASK QUESTIONS AND EXPRESS CONCERNS. , ISTOP REGISTRY REVIEWED AND DEMONSTRATES COMPLLIANCE. (REF #[id number] ) BRINGS IN MEDICATIONS WHICH IS APPROPRIATE FOR WHAT WAS DISPENSED. RECENT URINE TOXICOLOGY REVIEWED. NO UNAUTHORIZED MEDICATIONS. NO ILLICIT SUBSTANCES AND PRESCRIBED MEDICATIONS WERE PRESENT. , RISKS AND BENEFITS OF NARCOTIC/OPIOD MEDICATIONS WERE REVIEWED WITH PATIENT - THIS INCLUDES BUT IS NOT LIMITED TO RISK OF DEPENDANCE/DEVELOPMENT OF ADDICTION, MOOD DISTURBANCE AND DEPRESSION, OSTEOPOROSIS, HORMONAL AND LABIDAL CHANGES, RESPIRATORY DEPRESSION AND . PATIENT IS ADVISED NOT TO DRIVE OR DRINK ALCOHOL WHILE ON THESE MEDICATIONS. OTHERS REFILL MORPHINE SULFATE TABLET, 15 MG, 1 TABLET DAILY NEEDED, ORALLY, MDD=1, 30 DAY(S), 30, REFILLS 0 REFILL MORPHINE SULFATE ER TABLET EXTENDED RELEASE, 30 MG, 1 TABLET, ORALLY FOR PAIN, EVERY 12 HRS, 30 DAYS, 60 TABLET, REFILLS 0 REFILL VALIUM TABLET, 5 MG, 1 TABLET NEEDED, ORALLY FOR SPASMS, DAILY, 30 DAYS, 14, REFILLS 0 PROCEDURE CODES FA211 ESTABILISHED PATIENT [facility] CHARGE DISPOSITION & COMMUNICATION FOLLOW UP 2 MONTHS (REASON: CHRONIC PAIN ) ELECTRONICALLY SIGNED BY BEATRICE RODRIGUEZ ON 04/01/2019 AT 09:38 AM EDT DISCLAIMER : THIS IS A VISIT SUMMARY EXTRACTED FROM THE [employer] CHART. IT IS NOT A COPY OF THE [employer] PROGRESS NOTE. WENDY
== END ==
LOC: M PAIN 14:00
PROVIDERS: ATTEND Family Medicine
DX: M51.16 Intervertebral disc disorders with radiculopathy, lumbar region (principal); I10 Essential (primary) hypertension; I48.91 Unspecified atrial fibrillation; M79.7 Fibromyalgia; G40.909 Epilepsy, unspecified, not intractable, without status epilepticus; F43.10 Post-traumatic stress disorder, unspecified; F17.290 Nicotine dependence, other tobacco product, uncomplicated; Z79.891 Long term (current) use of opiate analgesic; Z79.899 Other long term (current) drug therapy; Z90.49 Acquired absence of other specified parts of digestive tract; Z88.5 Allergy status to narcotic agent; Z91.040 Latex allergy status; Z91.041 Radiographic dye allergy status; Z91.013 Allergy to seafood; Z91.048 Other nonmedicinal substance allergy status; Z88.8 Allergy status to other drugs, medicaments and biological substances

== ENCOUNTER 2019-04-01 12:59 | Outpatient (RCR) | payer MEDICAID | END 2019-04-03 | LOC: M OUTALCOH 12:59 | PROVIDERS: ATTEND Psychiatry & Neurology Psychiatry | DX: Z03.89 Encounter for observation for other suspected diseases and conditions ruled out (principal) ==

== ENCOUNTER → 2019-05-07 | Outpatient (CLI) | payer OTHER ==
[~2019-05-07] MED LIST changes: +LR 1,000 ML IV SCH; +MORP15TA2 PO; +PROHANCE 279.3MG/ML 15ML VIAL (A9576) As Ordered ONE; +PROHANCE 279.3MG/ML 5ML VIAL (A9576) As Ordered ONE; +PROPOFOL 200 MG/20 ML VIAL ONE; +SODIUM CHLORIDE 0.9% INJ 10 ML SYR IV PRN
--- NOTE | 2019-05-07 14:59 | REP ---
MRI LUMBAR SPINE WITHOUT AND WITH INTRAVENOUS GADOLINIUM: HISTORY: Post laminectomy syndrome. Comparison MRI study of the lumbar spine is from September 14, 2018. 20 mL of intravenous ProHance is administered. TECHNIQUE: Sagittal and axial T1- and T2-weighted scans are acquired in the usual fashion with and without fat saturation. Sequences include spin echo, turbo spin-echo, and STIR imaging sequences. MRI FINDINGS: There is straightening of the normal lumbar lordosis. There is a degenerative, 6 mm, retrolisthesis at L5-S1 unchanged from the comparison study. There is degenerative narrowing of the L5-S1 disc. There is a left laminectomy defect at L5-S1 and there is some enhancing granulation tissue along the left ventral lateral and left lateral margin of the thecal sac. There is diffuse disc bulging at L5-S1. No central canal stenosis is seen. Previously visible dorsal extra spinal seroma is no longer apparent. There is some facet hypertrophy bilaterally L5-S1. At L4-5, there is degenerative narrowing of the 4-5 disc and there is diffuse disc bulging. A laminectomy defect is present as before. There is diffuse disc bulging including the foraminal segments of the 4-5 days. This is unchanged. No central canal stenosis is noted. At L3-4, there is no significant abnormality. The L2-3 and L1-2 disc levels remain unremarkable. IMPRESSION: Post laminectomy changes L4-5 and L5-S1 with left ventral and left lateral granulation tissue at L5-S1. No evidence of recurrent disc herniation. Stable degenerative L5-S1 retrolisthesis. Bilateral foraminal disc bulging at L4-5 unchanged. Electronically Signed by Jf Mccann MD 05/07/2019 03:32 P
[2019-05-07 15:54] VITALS: BP 118/60
== END ==
LOC: M SDC 11:31
PROVIDERS: ATTEND Physician Assistant
DX: M96.1 Postlaminectomy syndrome, not elsewhere classified (principal)
CPT/HCPCS: 72158; 99152; 99153; A9576

== ENCOUNTER → 2019-06-11 | Outpatient (CLI) | payer OTHER ==
[~2019-06-11] MED LIST changes: -LR 1,000 ML IV SCH; -PROHANCE 279.3MG/ML 15ML VIAL (A9576) As Ordered ONE; -PROHANCE 279.3MG/ML 5ML VIAL (A9576) As Ordered ONE; -PROPOFOL 200 MG/20 ML VIAL ONE; -SODIUM CHLORIDE 0.9% INJ 10 ML SYR IV PRN
[2019-06-11 12:25] LABS: BASO # 0.1 10^3/uL (0.0-0.2); BASO % 0.7 % (0.0-1.0); EOS # 0.3 10^3/uL (0.0-0.5); EOS % 3.8 % (0.0-3.0); HEMATOCRIT 37.3 % (36.0-47.0); HEMOGLOBIN 12.6 g/dl (12.0-15.5); LYMPH # 2.7 10^3/uL (1.5-5.0); LYMPH % 37.5 % (24.0-44.0); MEAN CORPUSCULAR HEMOGLOBIN 28.8 pg (27.0-33.0); MEAN CORPUSCULAR HGB CONC 33.8 g/dl (32.0-36.5); MEAN CORPUSCULAR VOLUME 85.2 fl (80.0-96.0); MONO # 0.4 10^3/uL (0.0-0.8); MONO % 5.4 % (0.0-5.0); NEUTROPHILS # 3.8 10^3/uL (1.5-8.5); NEUTROPHILS % 52.3 % (36.0-66.0); PLATELET COUNT, AUTOMATED 212 10^3/uL (150-450); RED BLOOD COUNT 4.38 10^6/uL (4.00-5.40); WHITE BLOOD COUNT 7.2 10^3/uL (4.0-10.0)
[2019-06-11 12:55] LABS: ALBUMIN 3.7 GM/DL (3.2-5.2); ALT/SGPT 16 U/L (12-78); BILIRUBIN,TOTAL 0.3 MG/DL (0.2-1.0); BLOOD UREA NITROGEN 7 MG/DL (7-18); C REACTIVE PROTEIN QUANTITATIV < 0.30 MG/DL (0.00-0.30); CALCIUM LEVEL 8.7 MG/DL (8.5-10.1); CARBON DIOXIDE LEVEL 27 MEQ/L (21-32); CHLORIDE LEVEL 108 MEQ/L (98-107); CHOLESTEROL LEVEL 155 MG/DL (<200); CREATININE FOR GFR 0.74 MG/DL (0.55-1.30); GLOMERULAR FILTRATION RATE > 60.0 (>60); GLUCOSE, FASTING 92 MG/DL (70-100); HDL CHOLESTEROL 62 MG/DL (>40); LDL CHOLESTEROL 70 MG/DL (<100); NON-HDL-C 93 MG/DL; RHEUMATOID FACTOR QUANT < 10.0 IU/ML (<15.0); SODIUM LEVEL 143 MEQ/L (136-145); TRIGLYCERIDES LEVEL 114 MG/DL (<150)
[2019-06-11 13:00] LABS: ERYTHROCYTE SEDIMENTATION RATE 13 mm/hr (0-20)
[2019-06-11 14:19] LABS: HEMOGLOBIN A1c 5.5 %
[2019-06-13 00:07] LABS: ANTINUCLEAR ANTIBODIES DIRECT Negative (Negative); CYCLIC CITRULLINATED PEPTIDE 7 units (0-19)
== END ==
LOC: M LAB 11:27
PROVIDERS: ATTEND Nurse Practitioner Family
DX: M25.50 Pain in unspecified joint (principal); Z13.9 Encounter for screening, unspecified; E66.09 Other obesity due to excess calories

== ENCOUNTER → 2019-09-24 | Outpatient (CLI) | payer OTHER ==
--- NOTE | 2019-09-24 09:52 | REP ---
MRI lumbar spine without contrast: History: Degenerative disc disease. History of prior back surgery. Comparison study May 07, 2019. Technique: Sagittal and axial T1 and T2-weighted scans are acquired in the usual fashion with and without fat saturation. Sequences include spin echo, turbo spin-echo, and STIR imaging sequences. MRI findings: There is straightening of the lumbar lordosis as previously noted. At L5-S1, there is a stable retrolisthesis measuring 5 mm unchanged. There are left post laminectomy changes at L5-S1 as previously noted. There is facet I hypertrophy. There is granulation tissue again noted along the left lateral margin of the L5-S1 disc. There is neural foraminal narrowing on the left due to facet hypertrophy and disc bulging. This is a little more prominent than on the prior study. Some foraminal disc bulging is seen at L5 S1 on the right unchanged. At L4-5, there is some post laminectomy change again noted. As before, there is diffuse disc bulging unchanged. No focal disc protrusion is seen. Mild foraminal segment disc bulging is again noted unchanged. At L3-4, there is no evidence of disc protrusion or foraminal narrowing. The L1-2 and L2-3 disc levels remain unremarkable. Impression: Post laminectomy changes and degenerative disc disease changes at L4-5 and L5-S1. There is left foraminal narrowing at L5-S1 which appears more prominent. Otherwise unchanged Electronically Signed by Jf Mccann MD 09/24/2019 09:59 A
== END ==
LOC: M RAD 07:13
PROVIDERS: ATTEND Neurological Surgery
DX: M51.36 Other intervertebral disc degeneration, lumbar region (principal)

== ENCOUNTER → 2020-01-03 | Outpatient (REF) | payer OTHER, MEDICAID ==
[2020-01-03 19:23] LABS: BASO % 0.5 % (0.0-1.0); EOS # 0.4 10^3/uL (0.0-0.5); EOS % 4.3 % (0.0-3.0); HEMATOCRIT 39.5 % (36.0-47.0); HEMOGLOBIN 13.5 g/dl (12.0-15.5); LYMPH # 2.5 10^3/uL (1.5-5.0); LYMPH % 29.8 % (24.0-44.0); MEAN CORPUSCULAR HEMOGLOBIN 29.1 pg (27.0-33.0); MEAN CORPUSCULAR HGB CONC 34.2 g/dl (32.0-36.5); MEAN CORPUSCULAR VOLUME 85.1 fl (80.0-96.0); MONO # 0.5 10^3/uL (0.0-0.8); MONO % 6.3 % (0.0-5.0); NEUTROPHILS # 4.9 10^3/uL (1.5-8.5); NEUTROPHILS % 58.9 % (36.0-66.0); PLATELET COUNT, AUTOMATED 221 10^3/uL (150-450); RED BLOOD COUNT 4.64 10^6/uL (4.00-5.40); WHITE BLOOD COUNT 8.3 10^3/uL (4.0-10.0)
[2020-01-03 19:36] LABS: ALBUMIN 3.9 GM/DL (3.2-5.2); ALT/SGPT 17 U/L (12-78); BILIRUBIN,TOTAL 0.5 MG/DL (0.2-1.0); BLOOD UREA NITROGEN 5 MG/DL (7-18); CARBON DIOXIDE LEVEL 24 MEQ/L (21-32); CHLORIDE LEVEL 108 MEQ/L (98-107); CHOLESTEROL LEVEL 157 MG/DL (<200); CHOLESTEROL RISK RATIO 2.803 (<5); CREATININE FOR GFR 0.63 MG/DL (0.55-1.30); FREE T4 1.09 NG/DL (0.76-1.46); GLOMERULAR FILTRATION RATE > 60.0 (>60); GLUCOSE, FASTING 101 MG/DL (70-100); HDL CHOLESTEROL 56 MG/DL (>40); LDL CHOLESTEROL 85 MG/DL (<100); NON-HDL-C 101 MG/DL; POTASSIUM SERUM 3.6 MEQ/L (3.5-5.1); SODIUM LEVEL 140 MEQ/L (136-145); TOTAL PROTEIN 7.2 GM/DL (6.4-8.2); TRIGLYCERIDES LEVEL 82 MG/DL (<150)
[2020-01-03 19:38] LABS: PROLACTIN 7.8 NG/ML; TOTAL 25(OH) VITAMIN D 7.3 NG/ML (30.0-100.0)
[2020-01-03 19:39] LABS: TOTAL T3 102.4 NG/DL (60.0-181.0)
[2020-01-03 20:00] LABS: HEMOGLOBIN A1c 5.4 %
== END ==
LOC: M LAB REF 17:15
PROVIDERS: ATTEND Family Medicine
DX: R63.4 Abnormal weight loss (principal)

== ENCOUNTER → 2020-01-07 | Outpatient (CLI) | payer OTHER ==
--- NOTE | 2020-01-08 03:26 | REP ---
Clinical: Nausea. Technique: Two supine views of the abdomen and pelvis. Findings: Bowel gas pattern is nonspecific. No organomegaly. No significant abnormal calcifications. Skeletal structures are intact. Impression: Nonspecific bowel gas pattern. Electronically Signed by Zak Noriega MD 01/08/2020 03:18 A
== END ==
LOC: M RAD 15:45
PROVIDERS: ATTEND Nurse Practitioner Family
DX: R11.0 Nausea (principal)

== ENCOUNTER → 2020-01-31 | Outpatient (REF) | payer OTHER, MEDICAID | LOC: M LAB REF 18:16 | PROVIDERS: ATTEND Family Medicine | DX: R56.9 Unspecified convulsions (principal) ==

== ENCOUNTER → 2020-05-05 | Outpatient (CLI) | payer OTHER ==
[~2020-05-05] MED LIST changes: -DILT1TAB12; +DILT1TAB12 PO; +LEXA1TAB PO; +MELO15TA28 PO; -MORP15TA2; +PANT40TA29 PO; +PROC5TAB57 PO; -TIZA4CAP; +TIZA4CAP PO
--- NOTE | 2020-06-01 11:43 | REP ---
NONCONTRAST CT OF THE ABDOMEN AND PELVIS CLINICAL: Abnormal weight loss. COMPARISON: 11/23/2017 FINDINGS: Lung bases are clear. Visualized heart and pericardium normal. Liver, spleen, pancreas, bilateral adrenal glands, and kidneys are normal. Evidence for prior cholecystectomy. The enteric system is without obstruction or acute inflammatory process. Normal terminal ileum identified. Evidence for prior appendectomy. Pelvis demonstrates normal bladder and age-appropriate uterus/adnexa. No pelvic fluid or ascites. No free air. No adenopathy. Abdominal aorta without aneurysm. Musculoskeletal structures are intact. IMPRESSION: No evidence for acute abdominopelvic pathology. MTDD
== END ==
LOC: M RAD 07:03
PROVIDERS: ATTEND Internal Medicine Gastroenterology
DX: R63.4 Abnormal weight loss (principal)

== ENCOUNTER → 2020-05-30 | Outpatient (CLI) | payer OTHER | LOC: M LABSMTC 10:50 | PROVIDERS: ATTEND Anesthesiology | DX: Z01.812 Encounter for preprocedural laboratory examination (principal); Z20.828 Contact with and (suspected) exposure to other viral communicable diseases | CPT/HCPCS: C9803; U0003 ==

== ENCOUNTER 2020-06-04 12:00 | Day surgery (SDC) | payer OTHER ==
[~2020-06-04] VITALS: Ht 165.1 cm; Wt 82.6 kg
[~2020-06-04 12:00] MED LIST changes: +LIDOCAINE 2% 100MG/5ML SDV (FOR ANES.) As Ordered ONE; +NS 1,000 ML IV ONE; +propofoL 200 MG/20 ML VIAL As Ordered ONE
[2020-06-04] MEDS ORDERED: MIDAZOLAM INJ 2MG/2ML VIAL (J2250 PER 1MG) As Ordered ONE (14:21)
[2020-06-04] MEDS ORDERED: propofoL 200 MG/20 ML VIAL As Ordered ONE ×2 (14:30→14:53)
[2020-06-04] MEDS ORDERED: ONDANSETRON 4MG/2ML VIAL As Ordered ONE ×2 (14:31→14:37)
--- NOTE | 2020-06-04 14:53 | ROOR ---
Patient Name: Nargis Driver Procedure Date: 06/04/2020 2:06 PM Date of : 1985 Age: 34 Room: [facility] Gender: Female Note Status: Finalized Procedure: Upper GI endoscopy Indications: Nausea with vomiting, Weight loss Providers: Samy QUINONES MD Referring MD: Carl CRAIG MD Requesting Provider: Medicines: Monitored Anesthesia Care Complications: No immediate complications. Procedure: Pre-Anesthesia Assessment: - The heart rate, respiratory rate, oxygen saturations, blood pressure, adequacy of pulmonary ventilation, and response to care were monitored throughout the procedure. The Endoscope was introduced through the mouth, and advanced to the second part of duodenum. The upper GI endoscopy was accomplished without difficulty. The patient tolerated the procedure well. Findings: The esophagus was normal. The stomach was normal. The examined duodenum was normal. Impression: - Normal esophagus. - Normal stomach. - Normal examined duodenum. - No specimens collected. Recommendation: - Observe patient's clinical course. - Rec You should have a review of your multiple medications. Please discuss with your PCP. Samy Quinones MD Samy QUINONES MD 06/04/2020 2:53:00 PM Electronically signed by Samy QUINONES MD Number of Addenda: 0 Note Initiated On: 06/04/2020 2:06 PM Estimated Blood Loss: Estimated blood loss: none.
--- NOTE | 2020-06-04 14:57 | ROOR ---
Patient Name: Nargis Driver Procedure Date: 06/04/2020 2:06 PM Date of : 1985 Age: 34 Room: [id number] Gender: Female Note Status: Finalized Procedure: Colonoscopy Indications: Constipation, Weight loss Providers: Samy QUINONES MD Referring MD: Carl CRAIG MD Requesting Provider: Medicines: Monitored Anesthesia Care Complications: No immediate complications. Procedure: Pre-Anesthesia Assessment: - The heart rate, respiratory rate, oxygen saturations, blood pressure, adequacy of pulmonary ventilation, and response to care were monitored throughout the procedure. The Colonoscope was introduced through the anus and advanced to 10 cm into the ileum. The colonoscopy was performed without difficulty. The patient tolerated the procedure well. The quality of the bowel preparation was fair. Findings: The perianal and digital rectal examinations were normal. The colon (entire examined portion) appeared normal. The terminal ileum appeared normal. Small Internal Hemorrhoids. Impression: - Preparation of the colon was fair. - Small Internal Hemorrhoids - The entire colon is normal. - The examined portion of the ileum was normal.. - No specimens collected. Recommendation: - Return to referring physician as previously scheduled. - Consider review of medications as culprit in nausea and weight loss. Samy Quinones MD Samy QUINONES MD 06/04/2020 2:56:40 PM Electronically signed by Samy QUINONES MD Number of Addenda: 0 Note Initiated On: 06/04/2020 2:06 PM Estimated Blood Loss: Estimated blood loss: none.
[2020-06-04 15:55] VITALS: BP 122/58
== END 2020-06-04 16:24 | disposition home or self-care (01) ==
LOC: M OPP 12:00
PROVIDERS: ATTEND Internal Medicine Gastroenterology
DX: R63.4 Abnormal weight loss (principal); K59.00 Constipation, unspecified; R11.2 Nausea with vomiting, unspecified; F17.210 Nicotine dependence, cigarettes, uncomplicated; Z79.899 Other long term (current) drug therapy; Z88.8 Allergy status to other drugs, medicaments and biological substances; Z91.041 Radiographic dye allergy status; Z91.048 Other nonmedicinal substance allergy status
CPT/HCPCS: 43235; 45378; J2250; J2405

== ENCOUNTER → 2020-06-12 | Outpatient (REF) | payer OTHER, MEDICAID ==
[~2020-06-12] MED LIST changes: -LIDOCAINE 2% 100MG/5ML SDV (FOR ANES.) As Ordered ONE; -NS 1,000 ML IV ONE; -propofoL 200 MG/20 ML VIAL As Ordered ONE
[2020-06-12 16:53] LABS: BASO # 0.1 10^3/uL (0.0-0.2); BASO % 0.6 % (0.0-1.0); EOS # 0.4 10^3/uL (0.0-0.5); EOS % 5.1 % (0.0-3.0); HEMATOCRIT 40.9 % (36.0-47.0); HEMOGLOBIN 13.3 g/dl (12.0-15.5); LYMPH # 2.9 10^3/uL (1.5-5.0); LYMPH % 37.1 % (24.0-44.0); MEAN CORPUSCULAR HEMOGLOBIN 28.9 pg (27.0-33.0); MEAN CORPUSCULAR HGB CONC 32.5 g/dl (32.0-36.5); MEAN CORPUSCULAR VOLUME 88.7 fl (80.0-96.0); MONO # 0.4 10^3/uL (0.0-0.8); MONO % 5.5 % (0.0-5.0); NEUTROPHILS % 51.6 % (36.0-66.0); PLATELET COUNT, AUTOMATED 194 10^3/uL (150-450); RED BLOOD COUNT 4.61 10^6/uL (4.00-5.40); WHITE BLOOD COUNT 7.8 10^3/uL (4.0-10.0)
== END ==
LOC: M LAB REF 16:19
PROVIDERS: ATTEND Family Medicine Addiction Medicine
DX: N92.0 Excessive and frequent menstruation with regular cycle (principal)

== ENCOUNTER → 2020-07-06 | Outpatient (REF) | payer OTHER ==
[2020-07-06 17:13] LABS: HEMATOCRIT 41.6 % (36.0-47.0); HEMOGLOBIN 14.1 g/dl (12.0-15.5); MEAN CORPUSCULAR HEMOGLOBIN 29.4 pg (27.0-33.0); MEAN CORPUSCULAR HGB CONC 33.9 g/dl (32.0-36.5); MEAN CORPUSCULAR VOLUME 86.8 fl (80.0-96.0); PLATELET COUNT, AUTOMATED 164 10^3/uL (150-450); RED BLOOD COUNT 4.79 10^6/uL (4.00-5.40); WHITE BLOOD COUNT 6.2 10^3/uL (4.0-10.0)
[2020-07-06 17:37] LABS: FREE T4 1.41 NG/DL (0.76-1.46); THYROID STIMULATING HORMONE 1.09 uIU/ML (0.358-3.740)
[2020-07-07 10:32] LABS: PROLACTIN 4.3 NG/ML
== END ==
LOC: M PLALAB 13:03
PROVIDERS: ATTEND Obstetrics & Gynecology
DX: N93.9 Abnormal uterine and vaginal bleeding, unspecified (principal)

== ENCOUNTER → 2020-07-13 | Outpatient (CLI) | payer OTHER ==
--- NOTE | 2020-07-13 17:58 | REP ---
INDICATION: N93.9 ABNORMAL UTERINE . COMPARISON: 04/22/2018 TECHNIQUE: Transabdominal and endovaginal probes FINDINGS: Uterus is anteverted measuring 9.7 x 4.8 x 5.3 cm. There is a homogeneous central echogenic stripe and measuring 7 mm. No uterine mass or contour abnormality. The uterus does have a mild heterogeneous echotexture without discrete mass.. The right ovary is 3.6 x 1.3 x 3 cm and shows color flow on Doppler. Other resistive index is 0.55. There are multiple small follicles in the subcentimeter range. There is 1 hypoechoic focus 1.8 x 2 x 1.1 cm chest different echotexture than the rest of the ovary but does have color flow. All the follicles are sub cm. The left ovary is 2.9 x 1.5 x 1.5 cm and also has color flow and multiple subcentimeter follicles. No mass. No fluid adjacent to either ovary or in the cul-de-sac. On EV probe there were nabothian cysts in the cervix. IMPRESSION: 1. Heterogeneous uterine myometrium with a normal central endometrial stripe at 7 mm thickness and no fluid in the endometrial cavity under cervical canal. A few nabothian cysts seen uterus not enlarged. Para 2. Left ovary with multiple small subcentimeter follicles without mass. Normal blood flow. 3. The right ovary somewhat heterogeneous with 1 hypoechoic area with some blood flow within it and having different echotexture than the remainder of the ovary a 2 x 1.8 cm. Subcentimeter follicles. This may be a small focal ovarian lesion. Consider careful follow-up ultrasound or MRI pelvis. <Electronically signed by Jhoan Zheng > 07/13/20 [id number]
== END ==
LOC: M WHC 10:57
PROVIDERS: ATTEND Obstetrics & Gynecology
DX: N93.9 Abnormal uterine and vaginal bleeding, unspecified (principal)

== ENCOUNTER → 2020-07-21 | Outpatient (REF) | payer OTHER | LOC: M SFHCWAGY 16:59 | PROVIDERS: ATTEND Obstetrics & Gynecology | DX: Z12.4 Encounter for screening for malignant neoplasm of cervix (principal) ==

== ENCOUNTER → 2020-10-15 | Outpatient (CLI) | payer OTHER ==
[2020-10-15 14:21] LABS: BASO # 0.1 10^3/uL (0.0-0.2); BASO % 0.7 % (0.0-1.0); EOS # 0.3 10^3/uL (0.0-0.5); EOS % 4.3 % (0.0-3.0); HEMATOCRIT 37.5 % (36.0-47.0); HEMOGLOBIN 12.2 g/dl (12.0-15.5); LYMPH # 2.5 10^3/uL (1.5-5.0); LYMPH % 32.2 % (24.0-44.0); MEAN CORPUSCULAR HEMOGLOBIN 29.1 pg (27.0-33.0); MEAN CORPUSCULAR HGB CONC 32.5 g/dl (32.0-36.5); MEAN CORPUSCULAR VOLUME 89.5 fl (80.0-96.0); MONO # 0.4 10^3/uL (0.0-0.8); MONO % 5.8 % (0.0-5.0); NEUTROPHILS # 4.3 10^3/uL (1.5-8.5); NEUTROPHILS % 56.9 % (36.0-66.0); PLATELET COUNT, AUTOMATED 174 10^3/uL (150-450); RED BLOOD COUNT 4.19 10^6/uL (4.00-5.40); WHITE BLOOD COUNT 7.6 10^3/uL (4.0-10.0)
[2020-10-15 14:26] LABS: C REACTIVE PROTEIN QUANTITATIV < 0.30 MG/DL (0.00-0.30); RHEUMATOID FACTOR QUANT < 10.0 IU/ML (<15.0)
[2020-10-15 14:50] LABS: ERYTHROCYTE SEDIMENTATION RATE 9 mm/hr (0-20)
[2020-10-16 14:09] LABS: ANTINUCLEAR ANTIBODIES DIRECT Negative (Negative); Lyme Disease IgG/IgM Antibodie <0.91 ISR (0.00-0.90); Lyme Disease IgM Ab Quantitati <0.80 index (0.00-0.79)
== END ==
LOC: M PLALAB 09:40
PROVIDERS: ATTEND Orthopaedic Surgery
DX: M70.62 Trochanteric bursitis, left hip (principal)

== ENCOUNTER → 2020-11-13 | Outpatient (CLI) | payer OTHER ==
--- NOTE | 2020-11-13 14:31 | REP ---
INDICATION: TROCHANTERIC BURSITIS, R/O LABRAL TEAR. COMPARISON: 09/27/2017. TECHNIQUE: Multiple sequences obtained in the axial, coronal and sagittal planes without the use of intravenous contrast. FINDINGS: The osseous structures of the pelvis demonstrate normal bone marrow signal. There is no bone marrow edema or occult fracture. There is no evidence of avascular necrosis of the femoral heads. There is normal amount of hip joint fluid bilaterally. Soft tissue structures surrounding the proximal femurs demonstrate no abnormal signal. There is no current evidence of greater trochanteric tendonobursitis. Within the pelvis the uterus is noted to be mildly enlarged and diffusely heterogeneous.. It measures 13.8 cm in length. Endometrial thickness is normal. The junctional zone appears somewhat thickened posteriorly, approximately 13 mm, with a couple of tiny hyperintense foci in that area on T2 weighted images. The findings suggest adenomyosis. Few tiny nabothian cysts are seen in the region of the cervix. There is a simple cyst of the right ovary which measures 4.4 cm. There is mild free fluid in the cul-de-sac. Left ovary is superiorly positioned in the pelvis and appears unremarkable. There is no adenopathy or other evidence of mass in the pelvis. IMPRESSION: No osseous abnormality. No current evidence of greater trochanteric tendonobursitis. Simple cyst right ovary 4.4 cm. Mild free fluid. Enlarged heterogeneous uterus. There are findings suggesting adenomyosis of the uterus. <Electronically signed by Андрей Valles > 11/13/20 [id number]
== END ==
LOC: M PLARAD 12:34
PROVIDERS: ATTEND Orthopaedic Surgery
DX: N83.201 Unspecified ovarian cyst, right side (principal); N85.2 Hypertrophy of uterus; M70.62 Trochanteric bursitis, left hip

== ENCOUNTER 2020-12-08 03:11 | Emergency (ER) | payer OTHER ==
[~2020-12-08] VITALS: Ht 165.1 cm; Wt 90.5 kg
[2020-12-08] MEDS ORDERED: levETIRAcetam INJection 1,000 MG in D5W 100 ML IV ONE (06:15)
[2020-12-08] MEDS ORDERED: MIRE1IUD IU (06:24)
[2020-12-08] MEDS ORDERED: KEPP10002 PO (06:30)
[2020-12-08 06:50] VITALS: BP 135/62
== END 2020-12-08 06:50 | disposition home or self-care (01) ==
LOC: M ED 03:11
DX: G40.909 Epilepsy, unspecified, not intractable, without status epilepticus (principal); F43.10 Post-traumatic stress disorder, unspecified; G89.29 Other chronic pain; M54.9 Dorsalgia, unspecified; Z79.899 Other long term (current) drug therapy; Z97.5 Presence of (intrauterine) contraceptive device; Z88.5 Allergy status to narcotic agent; Z88.8 Allergy status to other drugs, medicaments and biological substances; Z91.018 Allergy to other foods; Z91.040 Latex allergy status; Z91.041 Radiographic dye allergy status; Z91.048 Other nonmedicinal substance allergy status; F12.20 Cannabis dependence, uncomplicated
CPT/HCPCS: 96374; 99284; J1953

== ENCOUNTER → 2021-01-04 | Outpatient (CLI) | payer OTHER ==
[~2021-01-04] MED LIST changes: +MIRE1IUD IU
--- NOTE | 2021-01-04 17:40 | REP ---
INDICATION: PAIN LT HIP, R/O LABRAL TEAR injury December 2019 in March 2020, pain COMPARISON: 09/27/2017. TECHNIQUE: Coronal T1, STIR through the pelvis, axial, coronal, sagittal T2 fat sat left hip. FINDINGS: The visualized osseous structures demonstrate normal bone marrow signal. There is no bone marrow edema or occult fracture. There is no evidence of avascular necrosis. There is tear of the superior labrum, posteriorly. Other portions of the labrum appear intact. There is no paralabral cyst. There is no joint effusion. There is diffuse edema in the quadratus femoris muscle between the lesser trochanter of the proximal femur and the ischial tuberosity. The distance between the ischial tuberosity and lesser trochanter is upper limits of normal at about 15 mm. The findings suggest ischiofemoral impingement. There also appears to be mild tendinitis of the tendons along the greater trochanter. A previously noted cyst of the right ovary has decreased in size, measuring 3.3 cm in diameter, previously 4.4 cm. There is again a very mild amount of free fluid in the cul-de-sac. IMPRESSION: There is a tear of the superior labrum posteriorly. There is edema in the quadratus femoris muscle between the lesser trochanter of the proximal femur and the ischial tuberosity suggesting ischiofemoral impingement. The distance between the ischial tuberosity and lesser trochanter is upper limits of normal. On the large [id number] coronal images there is suggestion of similar findings of edema in the right quadratus femoris muscle, to a lesser extent. There is mild tendinitis of the tendons along the greater trochanter. <Electronically signed by Андрей Valles > 01/04/21 [id number]
== END ==
LOC: M RADPRO 13:40
PROVIDERS: ATTEND Orthopaedic Surgery
DX: S73.192A Other sprain of left hip, initial encounter (principal); M62.89 Other specified disorders of muscle; M25.552 Pain in left hip; X58.XXXA Exposure to other specified factors, initial encounter; Y92.89 Other specified places as the place of occurrence of the external cause; Y93.89 Activity, other specified; Y99.8 Other external cause status

== ENCOUNTER → 2021-03-04 | Outpatient (CLI) | payer OTHER ==
--- NOTE | 2021-03-04 14:39 | REP ---
INDICATION: R/O TB. COMPARISON: 03/22/2018 the latest prior TECHNIQUE: PA and lateral FINDINGS: The superior mediastinal structures are midline. The cardiac silhouette is unremarkable in size, shape, and position. The diaphragmatic surfaces of the lungs are regular, and the costophrenic angles are clear. The pulmonary alatorre are clear. The imaged osseous structures are intact. The tip of the MediPort device is unchanged remaining in the superior vena cava. IMPRESSION: There is no acute cardiopulmonary disease. <Electronically signed by Russ Regalado > 03/04/21 [id number]
== END ==
LOC: M WUC 14:18
PROVIDERS: ATTEND Family Medicine Adult Medicine
DX: R76.11 Nonspecific reaction to tuberculin skin test without active tuberculosis (principal); Z95.828 Presence of other vascular implants and grafts

== ENCOUNTER → 2021-05-20 | Outpatient (REF) | payer OTHER | LOC: M LAB REF 16:31 | PROVIDERS: ATTEND Physician Assistant | DX: R50.9 Fever, unspecified (principal); R53.83 Other fatigue ==

== ENCOUNTER 2021-05-22 22:17 | Emergency (ER) | payer OTHER ==
[~2021-05-22] VITALS: Ht 165.1 cm; Wt 86.8 kg
[2021-05-22 22:23] VITALS: BP 132/68
== END 2021-05-23 00:20 | disposition left against medical advice (07) ==
LOC: M ED 22:17
DX: Z53.29 Procedure and treatment not carried out because of patient's decision for other reasons (principal)

== ENCOUNTER 2021-05-24 11:17 | Emergency (ER) | payer OTHER ==
[~2021-05-24] VITALS: Ht 165.1 cm; Wt 86.5 kg
--- NOTE | 2021-05-24 13:02 | REP ---
INDICATION: R calf pain, sob, +covid. COMPARISON: None. TECHNIQUE: Right {lower extremity duplex venous scanning is performed from the groin to the ankle level. FINDINGS: The deep veins are anechoic and fully compressible from the groin to the popliteal fossa in the right lower extremity. Color flow imaging is homogeneous. Spectral Doppler interrogation demonstrates intact respiratory variation in flow and normal manual augmentation of flow. There is no evidence of deep vein thrombosis above the knee. There is no evidence of DVT in the visualized calf veins. Doppler interrogation of the contralateral common femoral vein shows normal symmetric respiratory phasicity. IMPRESSION: No evidence of DVT in the right lower extremity femoropopliteal veins. No DVT in the visible portions of the calf veins. <Electronically signed by Ti Mccann > 05/24/21 [id number]
[2021-05-24] MEDS ORDERED: COMBIVENT RESPIMAT 100-20MCG INHALER 4GM INH STA (13:13)
[2021-05-24 14:32] LABS: BASO % 0.3 % (0.0-1.0); EOS # 0.1 10^3/uL (0.0-0.5); EOS % 1.3 % (0.0-3.0); HEMATOCRIT 39.3 % (36.0-47.0); HEMOGLOBIN 13.2 g/dl (12.0-15.5); LYMPH # 3.7 10^3/uL (1.5-5.0); LYMPH % 61.6 % (24.0-44.0); MEAN CORPUSCULAR HEMOGLOBIN 29.4 pg (27.0-33.0); MEAN CORPUSCULAR HGB CONC 33.6 g/dl (32.0-36.5); MEAN CORPUSCULAR VOLUME 87.5 fl (80.0-96.0); MONO # 0.4 10^3/uL (0.0-0.8); MONO % 6.3 % (2.0-8.0); NEUTROPHILS # 1.8 10^3/uL (1.5-8.5); NEUTROPHILS % 30.3 % (36.0-66.0); PLATELET COUNT, AUTOMATED 126 10^3/uL (150-450); RED BLOOD COUNT 4.49 10^6/uL (4.00-5.40); WHITE BLOOD COUNT 6.1 10^3/uL (4.0-10.0)
[2021-05-24 14:43] LABS: INR 0.98; PROTHROMBIN TIME 13.4 SECONDS (12.7-14.5)
[2021-05-24 14:46] LABS: D-DIMER QUANT 556.52 ng/ml (<500)
[2021-05-24 15:00] LABS: ALBUMIN 3.6 GM/DL (3.2-5.2); ALT/SGPT 13 U/L (12-78); BILIRUBIN,TOTAL 0.3 MG/DL (0.2-1.0); BLOOD UREA NITROGEN 5 MG/DL (7-18); CALCIUM LEVEL 8.4 MG/DL (8.5-10.1); CARBON DIOXIDE LEVEL 27 MEQ/L (21-32); CHLORIDE LEVEL 107 MEQ/L (98-107); CK-MB VALUE MASS 1.3 NG/ML (<3.6); CPK CREATINE PHOSPHOKINASE 49 U/L (26-192); CREATININE FOR GFR 0.58 MG/DL (0.55-1.30); GLOMERULAR FILTRATION RATE > 60.0 (>60); GLUCOSE, FASTING 89 MG/DL (70-100); LDH LACTATE DEHYDROGENASE 154 U/L (84-246); MAGNESIUM LEVEL 2.2 MG/DL (1.8-2.4); MB/CK RELATIVE INDEX 2.65 (< OR =4); POTASSIUM SERUM 3.8 MEQ/L (3.5-5.1); SODIUM LEVEL 141 MEQ/L (136-145); TOTAL PROTEIN 6.6 GM/DL (6.4-8.2); TROPONIN I < 0.02 NG/ML (< 0.10)
[2021-05-24] MEDS ORDERED: ONDANSETRON 4MG/2ML VIAL IV ONE (15:05)
--- NOTE | 2021-05-24 15:18 | REP ---
INDICATION: Coronavirus workup. COMPARISON: 03/22/2018. TECHNIQUE: Single portable AP view of the chest was performed. FINDINGS: There is no acute infiltrate or pulmonary edema. Lungs are clear. The heart is not significantly enlarged. The mediastinal silhouette is unremarkable. The visualized osseous structures are intact.Left central venous catheter is seen with the tip in the superior vena cava. IMPRESSION: No acute pulmonary disease. <Electronically signed by Андрей Valles > 05/24/21 [id number]
[2021-05-24] MEDS ORDERED: NS 1,000 ML IV SCH (15:45)
[2021-05-24] MEDS ORDERED: CASIRIVIMAB/IMDEVIMAB 1,200 MG in NS 250 ML IV ONE (15:45)
[2021-05-24] MEDS ORDERED: ALBUTEROL SULFATE 2.5 MG/0.5 ML INH NEB SOLN INH PRN (15:45)
[2021-05-24] MEDS ORDERED: EPINEPHrine INJ 1 MG/ML 1ML AMP IM PRN (15:45)
[2021-05-24] MEDS ORDERED: diphenhydrAMINE 50MG CAP PO ONE (15:45)
[2021-05-24] MEDS ORDERED: diphenhydrAMINE 50MG/ML VIAL (J1200) IV PRN (15:45)
[2021-05-24] MEDS ORDERED: methylPREDNISolone 125MG 2ML VIAL IV PRN (15:45)
[2021-05-24] MEDS ORDERED: methylPREDNISolone 125MG 2ML VIAL IV ONE (15:45)
[2021-05-24] MEDS ORDERED: ACETAMINOPHEN TAB 650MG DOSE (2X325MG) PO PRN (15:45)
[2021-05-24] MEDS ORDERED: ACETAMINOPHEN TAB 650MG DOSE (2X325MG) PO ONE (15:45)
[2021-05-24 17:13] VITALS: BP 140/74
--- NOTE | 2021-05-24 17:27 | IPNPDOC ---
Date Seen The patient was seen on 05/24/21. Progress Note SUBJECTIVE: 35-year-old female exposed to a client with coronavirus presents with several day history of fever nausea rhinorrhea malaise loss of taste loss of appetite shortness of breath found to be coronavirus positive for monoclonal antibodies. She denies any palpitations lightheadedness PND orthopnea chest pain pressure tightness abdominal pain diarrhea headaches changes in vision. OBJECTIVE PHYSICAL EXAMINATION: VITAL SIGNS: Please see below. GENERAL: Appears ill speaks in soft low voice awake alert oriented to person place and time no respiratory distress or use of respiratory accessory muscles HEENT: No JVD thyromegaly cervical lymphadenopathy CARDIOVASCULAR: S1-S2 sinus rhythm no murmurs rubs or gallops RESPIRATORY: Air entry is equal clear to auscultation [id number]-f-[id number] noted in the anterior chest ABDOMINAL: Positive bowel sounds soft nontender nondistended no rebound or guarding EXTREMITIES: No cyanosis clubbing or pitting edema LABORATORY DATA, IMAGING STUDIES, MICROBIOLOGY: Please see below. ASSESSMENT AND PLAN: 35-year-old female with history of A. fib status post ablation seizure disorder hypertension [id number] fibromyalgia restless leg syndrome tested positive for coronavirus now receiving monoclonal antibodies. Coronavirus positive -Monoclonal antibody consent form has been signed monoclonal antibody per protocol discharge home if no adverse reaction status post infusion. VS, I&O, 24H, Fishbone Vital Signs/I&O Vital Signs Date Time Temp Pulse Resp B/P (MAP) Pulse Ox O2 Delivery O2 Flow Rate FiO2 05/24/21 17:13 05/24/21 17:13 98.9 61 18 98 Room Air Laboratory Data 24H LABS Laboratory Tests 2 05/24/21 13:35: Immature Granulocyte % (Auto) 0.2, Neutrophils (%) (Auto) 30.3L, Lymphocytes (%) (Auto) 61.6H, Monocytes (%) (Auto) 6.3, Eosinophils (%) (Auto) 1.3, Basophils (%) (Auto) 0.3, Neutrophils # (Auto) 1.8, Lymphocytes # (Auto) 3.7, Monocytes # (Auto) 0.4, Eosinophils # (Auto) 0.1, Basophils # (Auto) 0.0, Nucleated Red Blood Cells % (auto) 0.0, Prothrombin Time 13.4, Prothromb Time International Ratio 0.98, Activated Partial Thromboplast Time 32.0, D-Dimer, Quantitative 556.52H, Anion Gap 7L, Glomerular Filtration Rate > 60.0, Lactic Acid Level 1.5, Calcium Level 8.4L, Magnesium Level 2.2, Total Bilirubin 0.3, Aspartate Amino Transf (AST/SGOT) 11, Alanine Aminotransferase (ALT/SGPT) 13, Alkaline Phospha tase 54, Lactate Dehydrogenase 154, Total Creatine Kinase 49, Creatine Kinase MB 1.3, Creatine Kinase MB Relative Index 2.65, Troponin I < 0.02, C-Reactive Protein, Quantitative 0.30, Total Protein 6.6, Albumin 3.6, Albumin/Globulin Ratio 1.2 05/24/21 14:16: POC Beta HCG, Quantitative < 5.0 CBC/BMP Laboratory Tests 05/24/21 13:35 Microbiology Microbiology 05/24/21 Blood Culture, Received Pending 05/24/21 Blood Culture, Received Pending TONJA MCLEOD MD May 24, 2021 17:27
--- NOTE | 2021-05-25 13:51 | ECGEPIP ---
[facility] - ED Test Date: 2021-05-24 Pat Name: OSMANY SAMPSON Department: Room: - Gender: Female [employer]: MARY : 1985 Requested By: BOONE Fitch PA-C Order Number: [id number] Reading MD: Lilibeth Van Measurements Intervals [place] Rate: 46 P: 57 MS: 150 QRS: 38 QRSD: 88 T: 24 QT: 468 QTc: 409 Interpretive Statements Sinus bradycardia NSTTW abnormalities decreased rate 12/11/18 Electronically Signed on 05-25-2021 13:50:46 EDT by Lilibeth Van
== END 2021-05-24 17:24 | disposition home or self-care (01) ==
LOC: M ED 11:17
DX: R05 Cough (principal); R06.00 Dyspnea, unspecified; U07.1 COVID-19; I10 Essential (primary) hypertension; J45.909 Unspecified asthma, uncomplicated; I48.91 Unspecified atrial fibrillation; Z79.899 Other long term (current) drug therapy; Z97.5 Presence of (intrauterine) contraceptive device; Z88.5 Allergy status to narcotic agent; Z88.8 Allergy status to other drugs, medicaments and biological substances; Z91.018 Allergy to other foods; Z91.040 Latex allergy status; Z91.041 Radiographic dye allergy status; Z91.048 Other nonmedicinal substance allergy status
CPT/HCPCS: 71045; 80053; 82550; 82553; 83605; 83615; 83735; 84145; 84702; 85025; 85379; 85610; 85730; 86140; 87040; 93005; 93041; 93971; 94640; 94760; 96374; 99284; J2405

== ENCOUNTER 2021-05-24 17:05 | Outpatient (CLI) | payer OTHER ==
[~2021-05-24 17:05] MED LIST changes: +ACETAMINOPHEN TAB 650MG DOSE (2X325MG) PO ONE; +ACETAMINOPHEN TAB 650MG DOSE (2X325MG) PO PRN; +ALBUTEROL 90 MCG/ACT 8GM HFA INHALER INH PRN; +ALBUTEROL SULFATE 2.5 MG/0.5 ML INH NEB SOLN INH PRN; +EPINEPHrine INJ 1 MG/ML 1ML AMP IM PRN; +NS 1,000 ML IV SCH; +SODIUM CHLORIDE 0.9% INJ 10 ML SYR IV SCH; +diphenhydrAMINE 50MG CAP PO ONE; +diphenhydrAMINE 50MG/ML VIAL (J1200) IV PRN; +methylPREDNISolone 125MG 2ML VIAL IV ONE; +methylPREDNISolone 125MG 2ML VIAL IV PRN
[2021-05-24 17:11] VITALS: BP 157/77
[2021-05-24] MEDS ORDERED: tiZANidine 4 MG TAB PO ONE (18:15)
[2021-05-24 18:48] VITALS: BP 137/67
[2021-05-24] MEDS ORDERED: CASIRIVIMAB/IMDEVIMAB 1,200 MG in NS 250 ML IV ONE (19:00)
[2021-05-24 19:19] VITALS: BP 131/67
[2021-05-24] MEDS ORDERED: SODIUM CHLORIDE 0.9% INJ 10 ML SYR IV PRN (19:30)
[2021-05-24 19:49] VITALS: BP 116/59
[2021-05-24 20:25] VITALS: BP 126/69
[2021-05-24 21:30] VITALS: BP 127/82
[2021-05-24] MEDS ORDERED: levETIRAcetam 250MG TABLET (KEPPRA) PO ONE (22:10)
== END 2021-05-24 23:20 ==
LOC: M 4MAIN 17:05 → M OPCLI4PV 17:05
PROVIDERS: ATTEND General Practice
DX: U07.1 COVID-19 (principal); Z88.6 Allergy status to analgesic agent; Z88.8 Allergy status to other drugs, medicaments and biological substances; Z91.040 Latex allergy status; Z91.041 Radiographic dye allergy status; Z91.048 Other nonmedicinal substance allergy status
CPT/HCPCS: 96375; J1642; J2930; M0243

== ENCOUNTER 2021-07-02 12:30 | Outpatient (CLI) | payer OTHER ==
[~2021-07-02] VITALS: Ht 165.1 cm; Wt 86.5 kg
[~2021-07-02 12:30] MED LIST changes: -ACETAMINOPHEN TAB 650MG DOSE (2X325MG) PO ONE; -ACETAMINOPHEN TAB 650MG DOSE (2X325MG) PO PRN; -ALBUTEROL 90 MCG/ACT 8GM HFA INHALER INH PRN; -ALBUTEROL SULFATE 2.5 MG/0.5 ML INH NEB SOLN INH PRN; -EPINEPHrine INJ 1 MG/ML 1ML AMP IM PRN; -NS 1,000 ML IV SCH; -diphenhydrAMINE 50MG CAP PO ONE; -diphenhydrAMINE 50MG/ML VIAL (J1200) IV PRN; -methylPREDNISolone 125MG 2ML VIAL IV ONE; -methylPREDNISolone 125MG 2ML VIAL IV PRN
[2021-07-02 13:04] VITALS: BP 124/73
[2021-07-02] MEDS ORDERED: SODIUM CHLORIDE 0.9% INJ 10 ML SYR IV PRN (13:20)
[2021-07-03] MEDS ORDERED: SODIUM CHLORIDE 0.9% INJ 10 ML SYR IV SCH (09:00)
== END 2021-07-02 13:20 | disposition home or self-care (01) ==
LOC: M INFU 12:30
PROVIDERS: ATTEND Pediatrics
DX: I48.91 Unspecified atrial fibrillation (principal); Z88.6 Allergy status to analgesic agent; Z91.041 Radiographic dye allergy status; Z91.048 Other nonmedicinal substance allergy status; Z88.8 Allergy status to other drugs, medicaments and biological substances
CPT/HCPCS: 96523; J1642

== ENCOUNTER 2021-07-28 15:30 | Outpatient (CLI) | payer OTHER ==
[~2021-07-28] VITALS: Ht 167.6 cm; Wt 87.5 kg
[~2021-07-28 15:30] MED LIST changes: +SODIUM CHLORIDE 0.9% INJ 10 ML SYR IV PRN
[2021-07-28 15:35] VITALS: BP 121/59
== END 2021-07-28 16:00 | disposition home or self-care (01) ==
LOC: M INFU 15:30
PROVIDERS: ATTEND Pediatrics
DX: I48.91 Unspecified atrial fibrillation (principal); Z88.2 Allergy status to sulfonamides; Z88.1 Allergy status to other antibiotic agents; Z88.6 Allergy status to analgesic agent; Z91.040 Latex allergy status; Z91.048 Other nonmedicinal substance allergy status
CPT/HCPCS: 96523; J1642

== ENCOUNTER 2021-08-25 15:23 | Outpatient (CLI) | payer OTHER ==
[~2021-08-25] VITALS: Ht 167.6 cm; Wt 87.5 kg
[2021-08-25 15:50] VITALS: BP 136/81
== END 2021-08-25 15:50 | disposition home or self-care (01) ==
LOC: M INFU 15:23
PROVIDERS: ATTEND Pediatrics
DX: I48.91 Unspecified atrial fibrillation (principal)
CPT/HCPCS: 96523; J1642

== ENCOUNTER 2021-09-22 14:34 | Outpatient (CLI) | payer OTHER ==
[~2021-09-22] VITALS: Ht 167.6 cm; Wt 87.8 kg
[~2021-09-22 14:34] MED LIST changes: -SODIUM CHLORIDE 0.9% INJ 10 ML SYR IV PRN
[2021-09-22 14:55] VITALS: BP 143/74
[2021-09-22] MEDS ORDERED: SODIUM CHLORIDE 0.9% INJ 10 ML SYR IV PRN (15:30)
== END 2021-09-22 14:55 | disposition home or self-care (01) ==
LOC: M INFU 14:34
PROVIDERS: ATTEND Pediatrics
DX: I48.91 Unspecified atrial fibrillation (principal); Z88.6 Allergy status to analgesic agent; Z91.041 Radiographic dye allergy status; Z91.048 Other nonmedicinal substance allergy status; Z88.8 Allergy status to other drugs, medicaments and biological substances
CPT/HCPCS: 96523; J1642

== ENCOUNTER 2021-10-20 15:35 | Outpatient (CLI) | payer OTHER ==
[~2021-10-20] VITALS: Ht 167.6 cm; Wt 87.8 kg
[~2021-10-20 15:35] MED LIST changes: +SODIUM CHLORIDE 0.9% INJ 10 ML SYR IV PRN
[2021-10-20 15:40] VITALS: BP 134/74
== END 2021-10-20 16:00 | disposition home or self-care (01) ==
LOC: M INFU 15:35
PROVIDERS: ATTEND Pediatrics
DX: I48.91 Unspecified atrial fibrillation (principal); Z88.6 Allergy status to analgesic agent; Z91.041 Radiographic dye allergy status; Z91.048 Other nonmedicinal substance allergy status; Z88.8 Allergy status to other drugs, medicaments and biological substances
CPT/HCPCS: 96523; J1642

== ENCOUNTER 2021-11-17 15:25 | Outpatient (CLI) | payer OTHER ==
[~2021-11-17] VITALS: Ht 167.6 cm; Wt 87.7 kg
[2021-11-17] MEDS ORDERED: KEPP10002 PO (15:51)
[2021-11-17] MEDS ORDERED: PRAZ2CAP40 PO (15:54)
[2021-11-17 16:00] VITALS: BP 172/92
== END 2021-11-17 16:00 | disposition home or self-care (01) ==
LOC: M INFU 15:25
PROVIDERS: ATTEND Pediatrics
DX: I48.91 Unspecified atrial fibrillation (principal); Z88.1 Allergy status to other antibiotic agents; Z88.6 Allergy status to analgesic agent; Z88.8 Allergy status to other drugs, medicaments and biological substances; Z91.041 Radiographic dye allergy status
CPT/HCPCS: 96523; J1642

== ENCOUNTER 2022-01-12 15:30 | Outpatient (CLI) | payer OTHER ==
[~2022-01-12] VITALS: Ht 165.1 cm; Wt 87.7 kg
[~2022-01-12 15:30] MED LIST changes: +PRAZ2CAP40 PO; -SODIUM CHLORIDE 0.9% INJ 10 ML SYR IV PRN
[2022-01-12 15:55] VITALS: BP 134/64
== END 2022-01-12 15:55 | disposition home or self-care (01) ==
LOC: M INFU 15:30
PROVIDERS: ATTEND Pediatrics
DX: I48.91 Unspecified atrial fibrillation (principal); Z88.6 Allergy status to analgesic agent; Z88.8 Allergy status to other drugs, medicaments and biological substances; Z91.040 Latex allergy status
CPT/HCPCS: 96523; J1642

== ENCOUNTER → 2022-01-24 | Outpatient (CLI) | payer OTHER ==
[~2022-01-24] MED LIST changes: -SODIUM CHLORIDE 0.9% INJ 10 ML SYR IV SCH
== END ==
LOC: M RAD 17:59
PROVIDERS: ATTEND Physician Assistant Medical
DX: M79.672 Pain in left foot (principal)

== ENCOUNTER 2022-02-05 15:46 | Emergency (ER) | payer OTHER ==
[~2022-02-05] VITALS: Ht 165.1 cm; Wt 79.5 kg
[2022-02-05 16:00] VITALS: BP 165/94
[2022-02-05] MEDS ORDERED: NORCO, ANEXSIA 5/325MG TABLET (HYDROcodone/ACETAMINOPHEN) PO ONE (17:10)
== END 2022-02-05 17:44 | disposition home or self-care (01) ==
LOC: M ED 15:46

== ENCOUNTER 2022-02-16 15:53 | Outpatient (CLI) | payer OTHER ==
[~2022-02-16] VITALS: Ht 165.1 cm; Wt 79.5 kg
[~2022-02-16 15:53] MED LIST changes: +SODIUM CHLORIDE 0.9% INJ 10 ML SYR IV SCH
[2022-02-16 16:00] VITALS: BP 140/78
== END 2022-02-16 16:15 | disposition home or self-care (01) ==
LOC: M INFU 15:53
PROVIDERS: ATTEND Pediatrics
DX: I48.91 Unspecified atrial fibrillation (principal); Z88.6 Allergy status to analgesic agent; Z88.8 Allergy status to other drugs, medicaments and biological substances; Z91.040 Latex allergy status
CPT/HCPCS: 96523; J1642

== ENCOUNTER 2022-03-10 16:10 | Outpatient (CLI) | payer OTHER ==
[~2022-03-10 16:10] MED LIST changes: +SODIUM CHLORIDE 0.9% INJ 10 ML SYR IV SCH
[2022-03-10 16:16] VITALS: BP 171/98
== END 2022-03-10 16:25 | disposition home or self-care (01) ==
LOC: M INFU 16:10
PROVIDERS: ATTEND Pediatrics
DX: I48.91 Unspecified atrial fibrillation (principal); Z88.5 Allergy status to narcotic agent; Z88.6 Allergy status to analgesic agent; Z88.8 Allergy status to other drugs, medicaments and biological substances; Z91.89 Other specified personal risk factors, not elsewhere classified; Z91.040 Latex allergy status; Z91.041 Radiographic dye allergy status
CPT/HCPCS: 96523; J1642

== ENCOUNTER → 2022-03-10 | Outpatient (CLI) | payer OTHER ==
[~2022-03-10] MED LIST changes: -SODIUM CHLORIDE 0.9% INJ 10 ML SYR IV SCH
== END ==
LOC: M RAD 18:56
PROVIDERS: ATTEND Physician Assistant
DX: R05.9 Cough, unspecified (principal); R50.9 Fever, unspecified

== ENCOUNTER → 2022-03-10 | Outpatient (REF) | payer OTHER | LOC: M LAB REF 21:28 | PROVIDERS: ATTEND Physician Assistant | DX: R50.9 Fever, unspecified (principal); R05.9 Cough, unspecified ==

== ENCOUNTER → 2022-03-22 | Outpatient (REF) | payer OTHER ==
[~2022-03-22] MED LIST changes: -SODIUM CHLORIDE 0.9% INJ 10 ML SYR IV SCH
[2022-03-22 23:30] LABS: GC DNA AMPLIFICATION NEGATIVE (NEGATIVE)
== END ==
LOC: M LAB REF 21:04
PROVIDERS: ATTEND Physician Assistant Medical
DX: N39.0 Urinary tract infection, site not specified (principal); Z20.2 Contact with and (suspected) exposure to infections with a predominantly sexual mode of transmission

== ENCOUNTER → 2022-04-11 | Outpatient (REF) | payer OTHER ==
[2022-04-11 21:59] LABS: APPEARANCE, URINE CLEAR (CLEAR); BACTERIA, URINE AUTO 1+ (NEGATIVE); BILIRUBIN, URINE AUTO NEGATIVE (NEGATIVE); BLOOD, URINE BLOOD 1+ (NEGATIVE); COLOR, URINE STRAW (YELLOW); GLUCOSE, URINE (UA) AUTO NEGATIVE (NEGATIVE); KETONE, URINE AUTO NEGATIVE (NEGATIVE); LEUKOCYTE ESTERASE, URINE AUTO 2+ (NEGATIVE); NITRITE, URINE AUTO NEGATIVE (NEGATIVE); PROTEIN, URINE AUTO NEGATIVE (NEGATIVE); RBC, URINE AUTO 0 /HPF (0-3); SPECIFIC GRAVITY URINE AUTO 1.003 (1.002-1.035); SQUAMOUS EPITHELIAL CELL UR AU 1 /HPF (0-6); UROBILINOGEN, URINE AUTO 0.2 mg/dL (0.0-2.0); WBC, URINE AUTO 15 /HPF (0-3)
== END ==
LOC: M LAB REF 21:28
PROVIDERS: ATTEND Physician Assistant Medical
DX: N39.0 Urinary tract infection, site not specified (principal)

== ENCOUNTER 2022-05-18 14:45 | Outpatient (CLI) | payer OTHER ==
[~2022-05-18] VITALS: Ht 167.6 cm; Wt 81.8 kg
[~2022-05-18 14:45] MED LIST changes: +SODIUM CHLORIDE 0.9% INJ 10 ML SYR IV SCH
== END 2022-05-18 14:55 | disposition home or self-care (01) ==
LOC: M INFU 14:45
PROVIDERS: ATTEND Pediatrics
DX: I48.91 Unspecified atrial fibrillation (principal); Z88.6 Allergy status to analgesic agent; Z88.8 Allergy status to other drugs, medicaments and biological substances; Z88.5 Allergy status to narcotic agent
CPT/HCPCS: 96523; J1642

== ENCOUNTER 2022-06-15 14:55 | Outpatient (CLI) | payer OTHER ==
[~2022-06-15] VITALS: Ht 167.6 cm; Wt 85.0 kg
[2022-06-15 15:00] VITALS: BP 131/77
== END 2022-06-15 15:10 | disposition home or self-care (01) ==
LOC: M INFU 14:55
PROVIDERS: ATTEND Pediatrics
DX: I48.91 Unspecified atrial fibrillation (principal); Z88.6 Allergy status to analgesic agent; Z88.8 Allergy status to other drugs, medicaments and biological substances; Z88.5 Allergy status to narcotic agent
CPT/HCPCS: 96523; J1642

== ENCOUNTER 2022-07-20 15:35 | Outpatient (CLI) | payer OTHER ==
[~2022-07-20] VITALS: Ht 167.6 cm; Wt 85.0 kg
[2022-07-20 15:37] VITALS: BP 145/78
== END 2022-07-20 15:50 | disposition home or self-care (01) ==
LOC: M INFU 15:35
PROVIDERS: ATTEND Pediatrics
DX: I48.91 Unspecified atrial fibrillation (principal); Z88.6 Allergy status to analgesic agent; Z88.8 Allergy status to other drugs, medicaments and biological substances; Z88.5 Allergy status to narcotic agent
CPT/HCPCS: 96523; J1642

== ENCOUNTER → 2022-08-12 | Outpatient (CLI) | payer OTHER ==
[~2022-08-12] MED LIST changes: -SODIUM CHLORIDE 0.9% INJ 10 ML SYR IV SCH
== END ==
LOC: M PLARAD 13:54
PROVIDERS: ATTEND Physician Assistant
DX: M51.26 Other intervertebral disc displacement, lumbar region (principal); M99.63 Osseous and subluxation stenosis of intervertebral foramina of lumbar region

== ENCOUNTER 2022-08-23 11:35 | Outpatient (CLI) | payer OTHER ==
[~2022-08-23] VITALS: Ht 167.6 cm; Wt 187.2 kg
[~2022-08-23 11:35] MED LIST changes: +SODIUM CHLORIDE 0.9% INJ 10 ML SYR IV SCH
[2022-08-23 11:45] VITALS: BP 141/74
== END 2022-08-23 11:55 | disposition home or self-care (01) ==
LOC: M INFU 11:35
PROVIDERS: ATTEND Pediatrics
DX: I48.91 Unspecified atrial fibrillation (principal); Z88.5 Allergy status to narcotic agent; Z88.6 Allergy status to analgesic agent
CPT/HCPCS: 96523; J1642

== ENCOUNTER 2022-09-14 15:02 | Outpatient (CLI) | payer OTHER ==
[~2022-09-14 15:02] MED LIST changes: -MEDR10TA PO; +MEDR10TA9 PO
[2022-09-14 15:20] VITALS: BP 141/78
== END 2022-09-14 15:20 | disposition home or self-care (01) ==
LOC: M INFU 15:02
PROVIDERS: ATTEND Pediatrics
DX: I48.91 Unspecified atrial fibrillation (principal); Z88.8 Allergy status to other drugs, medicaments and biological substances; Z88.5 Allergy status to narcotic agent; Z88.3 Allergy status to other anti-infective agents

== ENCOUNTER 2022-10-12 11:15 | Outpatient (CLI) | payer OTHER ==
[2022-10-12 11:30] VITALS: BP 179/91
== END 2022-10-12 11:30 | disposition home or self-care (01) ==
LOC: M INFU 11:15
PROVIDERS: ATTEND Pediatrics
DX: I48.91 Unspecified atrial fibrillation (principal); Z88.5 Allergy status to narcotic agent; Z88.6 Allergy status to analgesic agent; Z88.8 Allergy status to other drugs, medicaments and biological substances; Z91.040 Latex allergy status; Z91.013 Allergy to seafood; Z91.041 Radiographic dye allergy status
CPT/HCPCS: 96523; J1642

== ENCOUNTER → 2022-11-14 | Outpatient (CLI) | payer OTHER ==
[~2022-11-14] MED LIST changes: +BUSP10TA PO; -SODIUM CHLORIDE 0.9% INJ 10 ML SYR IV SCH; +TRAZ-257 PO
== END ==
LOC: M RAD 14:16
PROVIDERS: ATTEND Nurse Practitioner Family
DX: M96.1 Postlaminectomy syndrome, not elsewhere classified (principal)

== ENCOUNTER → 2022-11-14 | Outpatient (CLI) | payer OTHER | LOC: M PAIN 13:00 | PROVIDERS: ATTEND Nurse Practitioner Family | DX: M96.1 Postlaminectomy syndrome, not elsewhere classified (principal); I10 Essential (primary) hypertension; I48.91 Unspecified atrial fibrillation; M79.7 Fibromyalgia; G40.909 Epilepsy, unspecified, not intractable, without status epilepticus; F43.10 Post-traumatic stress disorder, unspecified; M54.50 Low back pain, unspecified; F17.290 Nicotine dependence, other tobacco product, uncomplicated; Z79.891 Long term (current) use of opiate analgesic; Z79.899 Other long term (current) drug therapy; Z88.5 Allergy status to narcotic agent; Z88.6 Allergy status to analgesic agent; Z88.8 Allergy status to other drugs, medicaments and biological substances; Z91.041 Radiographic dye allergy status; Z91.040 Latex allergy status; Z91.048 Other nonmedicinal substance allergy status ==

== ENCOUNTER 2022-11-16 08:30 | Outpatient (CLI) | payer OTHER ==
[~2022-11-16] VITALS: Ht 167.6 cm; Wt 90.9 kg
[2022-11-16 08:30] VITALS: BP 148/70
[~2022-11-16 08:30] MED LIST changes: -BUSP10TA PO; +SODIUM CHLORIDE 0.9% INJ 10 ML SYR IV SCH; -TRAZ-257 PO
[2022-11-16] MEDS ORDERED: BUSP10TA PO (08:45)
[2022-11-16] MEDS ORDERED: TRAZ-257 PO (08:45)
== END 2022-11-16 08:50 | disposition home or self-care (01) ==
LOC: M INFU 08:30
PROVIDERS: ATTEND Pediatrics
DX: I48.91 Unspecified atrial fibrillation (principal); Z88.5 Allergy status to narcotic agent; Z88.6 Allergy status to analgesic agent; Z88.8 Allergy status to other drugs, medicaments and biological substances; Z91.040 Latex allergy status; Z91.013 Allergy to seafood; Z91.041 Radiographic dye allergy status
CPT/HCPCS: 96523; J1642

== ENCOUNTER 2022-12-14 10:32 | Outpatient (CLI) | payer OTHER ==
[2022-12-14 10:30] VITALS: BP 149/74
[~2022-12-14 10:32] MED LIST changes: +BUSP10TA PO; +TRAZ-257 PO
== END 2022-12-14 11:00 | disposition home or self-care (01) ==
LOC: M INFU 10:32
PROVIDERS: ATTEND Pediatrics
DX: I48.91 Unspecified atrial fibrillation (principal); Z88.6 Allergy status to analgesic agent; Z88.8 Allergy status to other drugs, medicaments and biological substances; Z88.5 Allergy status to narcotic agent; Z88.3 Allergy status to other anti-infective agents

== ENCOUNTER → 2023-01-13 | Outpatient (CLI) | payer OTHER ==
[~2023-01-13] VITALS: Ht 167.6 cm; Wt 90.5 kg
[~2023-01-13] MED LIST changes: +NYST100085 TOP; -NYSTOI TOP
[2023-01-13 15:33] VITALS: BP 152/83
== END ==
LOC: M INFU 17:23
PROVIDERS: ATTEND Pediatrics
DX: I48.91 Unspecified atrial fibrillation (principal); Z88.6 Allergy status to analgesic agent; Z88.8 Allergy status to other drugs, medicaments and biological substances; Z88.5 Allergy status to narcotic agent

== ENCOUNTER → 2023-01-16 | Outpatient (CLI) | payer OTHER ==
[~2023-01-16] MED LIST changes: -SODIUM CHLORIDE 0.9% INJ 10 ML SYR IV SCH
== END ==
LOC: M PAIN 14:30
PROVIDERS: ATTEND Anesthesiology
DX: R10.2 Pelvic and perineal pain (principal); M70.62 Trochanteric bursitis, left hip; G89.29 Other chronic pain; I10 Essential (primary) hypertension; M79.7 Fibromyalgia; G40.909 Epilepsy, unspecified, not intractable, without status epilepticus; Z86.14 Personal history of Methicillin resistant Staphylococcus aureus infection; Z86.59 Personal history of other mental and behavioral disorders; Z87.891 Personal history of nicotine dependence; Z88.3 Allergy status to other anti-infective agents; Z88.5 Allergy status to narcotic agent; Z88.6 Allergy status to analgesic agent; Z88.8 Allergy status to other drugs, medicaments and biological substances; Z91.013 Allergy to seafood; Z91.040 Latex allergy status; Z91.041 Radiographic dye allergy status; Z79.899 Other long term (current) drug therapy

== ENCOUNTER 2023-02-13 14:59 | Outpatient (CLI) | payer OTHER ==
[~2023-02-13] VITALS: Ht 167.6 cm; Wt 90.0 kg
[~2023-02-13 14:59] MED LIST changes: +SODIUM CHLORIDE 0.9% INJ 10 ML SYR IV SCH
[2023-02-13 15:00] VITALS: BP 163/84; O2SAT 100
== END 2023-02-13 15:10 | disposition home or self-care (01) ==
LOC: M INFU 14:59
PROVIDERS: ATTEND Pediatrics
DX: I48.91 Unspecified atrial fibrillation (principal); Z88.6 Allergy status to analgesic agent; Z88.8 Allergy status to other drugs, medicaments and biological substances

== ENCOUNTER → 2023-04-10 | Outpatient (CLI) | payer OTHER ==
[~2023-04-10] MED LIST changes: -SODIUM CHLORIDE 0.9% INJ 10 ML SYR IV SCH
[2023-04-10 13:41] LABS: BASO # 0.1 10^3/uL (0.0-0.2); BASO % 0.8 % (0.0-1.0); EOS # 0.3 10^3/uL (0.0-0.5); EOS % 3.4 % (0.0-3.0); HEMOGLOBIN 13.8 g/dl (12.0-15.5); LYMPH # 2.5 10^3/uL (1.5-5.0); LYMPH % 30.7 % (24.0-44.0); MEAN CORPUSCULAR HEMOGLOBIN 29.8 pg (27.0-33.0); MEAN CORPUSCULAR HGB CONC 33.7 g/dl (32.0-36.5); MEAN CORPUSCULAR VOLUME 88.6 fl (80.0-96.0); MONO # 0.4 10^3/uL (0.0-0.8); MONO % 5.1 % (2.0-8.0); NEUTROPHILS # 4.8 10^3/uL (1.5-8.5); NEUTROPHILS % 59.6 % (36.0-66.0); PLATELET COUNT, AUTOMATED 212 10^3/uL (150-450); RED BLOOD COUNT 4.63 10^6/uL (4.00-5.40)
[2023-04-10 14:14] LABS: BLOOD UREA NITROGEN 9 MG/DL (9-23); CALCIUM LEVEL 8.9 MG/DL (8.5-10.1); CARBON DIOXIDE LEVEL 30 MMOL/L (20-31); CHLORIDE LEVEL 105 MMOL/L (98-107); CREATININE FOR GFR 0.75 MG/DL (0.55-1.30); GLOMERULAR FILTRATION RATE > 60.0 (>60); GLUCOSE, FASTING 85 MG/DL (60-100); POTASSIUM SERUM 3.8 MMOL/L (3.5-5.1); SODIUM LEVEL 140 MMOL/L (136-145)
== END ==
LOC: M RAD 12:39
PROVIDERS: ATTEND Pediatrics
DX: Z01.818 Encounter for other preprocedural examination (principal)

== ENCOUNTER 2023-04-14 14:25 | Outpatient (CLI) | payer OTHER ==
[~2023-04-14] VITALS: Ht 167.6 cm; Wt 90.0 kg
[~2023-04-14 14:25] MED LIST changes: +SODIUM CHLORIDE 0.9% INJ 10 ML SYR IV SCH
[2023-04-14 14:40] VITALS: BP 143/75; O2SAT 20
== END 2023-04-14 14:40 | disposition home or self-care (01) ==
LOC: M INFU 14:25
PROVIDERS: ATTEND Pediatrics
DX: I48.91 Unspecified atrial fibrillation (principal); Z88.6 Allergy status to analgesic agent; Z88.8 Allergy status to other drugs, medicaments and biological substances; Z88.3 Allergy status to other anti-infective agents; Z91.041 Radiographic dye allergy status

== ENCOUNTER 2023-05-16 14:55 | Outpatient (CLI) | payer OTHER ==
[2023-05-16 14:55] VITALS: BP 166/84; O2SAT 100
== END 2023-05-16 15:05 | disposition home or self-care (01) ==
LOC: M INFU 14:55
PROVIDERS: ATTEND Pediatrics
DX: I48.91 Unspecified atrial fibrillation (principal); Z88.5 Allergy status to narcotic agent; Z88.8 Allergy status to other drugs, medicaments and biological substances; Z88.6 Allergy status to analgesic agent; Z91.041 Radiographic dye allergy status; Z91.048 Other nonmedicinal substance allergy status

== ENCOUNTER → 2023-05-17 | Outpatient (REF) | payer OTHER ==
[~2023-05-17] MED LIST changes: -SODIUM CHLORIDE 0.9% INJ 10 ML SYR IV SCH
[2023-05-17 22:05] LABS: HEMOGLOBIN A1c 5.4 % (4.0-6.0)
== END ==
LOC: M LAB REF 16:47
PROVIDERS: ATTEND Pediatrics
DX: R63.5 Abnormal weight gain (principal)

== ENCOUNTER → 2023-05-23 | Outpatient (CLI) | payer OTHER | LOC: M PAIN 16:00 | PROVIDERS: ATTEND Nurse Practitioner Family | DX: R10.2 Pelvic and perineal pain (principal); M70.62 Trochanteric bursitis, left hip; M46.1 Sacroiliitis, not elsewhere classified; G89.29 Other chronic pain; I10 Essential (primary) hypertension; I48.91 Unspecified atrial fibrillation; M79.7 Fibromyalgia; G40.909 Epilepsy, unspecified, not intractable, without status epilepticus; F43.10 Post-traumatic stress disorder, unspecified; M54.50 Low back pain, unspecified; Z87.891 Personal history of nicotine dependence; Z79.899 Other long term (current) drug therapy; Z88.5 Allergy status to narcotic agent; Z88.6 Allergy status to analgesic agent; Z88.8 Allergy status to other drugs, medicaments and biological substances; Z91.040 Latex allergy status; Z91.048 Other nonmedicinal substance allergy status; Z91.013 Allergy to seafood ==

== ENCOUNTER 2023-06-13 14:45 | Outpatient (CLI) | payer OTHER ==
[~2023-06-13] VITALS: Ht 167.6 cm; Wt 97.5 kg
[~2023-06-13 14:45] MED LIST changes: +SODIUM CHLORIDE 0.9% INJ 10 ML SYR IV SCH
[2023-06-13 14:58] VITALS: BP 153/82; O2SAT 100
== END 2023-06-13 15:15 ==
LOC: M INFU 14:45
PROVIDERS: ATTEND Pediatrics
DX: I48.91 Unspecified atrial fibrillation (principal); Z88.6 Allergy status to analgesic agent; Z88.8 Allergy status to other drugs, medicaments and biological substances; Z88.5 Allergy status to narcotic agent; Z91.041 Radiographic dye allergy status

== ENCOUNTER → 2023-07-07 | Outpatient (CLI) | payer OTHER ==
[~2023-07-07] MED LIST changes: -SODIUM CHLORIDE 0.9% INJ 10 ML SYR IV SCH
== END ==
LOC: M WHC 14:39
PROVIDERS: ATTEND Physician Assistant Medical
DX: R10.2 Pelvic and perineal pain (principal); T83.32XA Displacement of intrauterine contraceptive device, initial encounter

== ENCOUNTER 2023-07-14 15:30 | Outpatient (CLI) | payer OTHER ==
[~2023-07-14] VITALS: Ht 167.6 cm; Wt 97.7 kg
[~2023-07-14 15:30] MED LIST changes: +SODIUM CHLORIDE 0.9% INJ 10 ML SYR IV SCH
[2023-07-14 15:35] VITALS: BP 144/90; O2SAT 100
== END 2023-07-14 15:50 ==
LOC: M INFU 15:30
PROVIDERS: ATTEND Pediatrics
DX: I48.91 Unspecified atrial fibrillation (principal); Z88.6 Allergy status to analgesic agent; Z88.8 Allergy status to other drugs, medicaments and biological substances

== ENCOUNTER 2023-07-16 09:48 | Emergency (ER) | payer OTHER ==
[~2023-07-16] VITALS: Ht 165.1 cm; Wt 98.1 kg
[~2023-07-16 09:48] MED LIST changes: -SODIUM CHLORIDE 0.9% INJ 10 ML SYR IV SCH
[2023-07-16 11:04] LABS: HEMATOCRIT 43.4 % (36.0-47.0); HEMOGLOBIN 14.2 g/dl (12.0-15.5); MEAN CORPUSCULAR HEMOGLOBIN 29.7 pg (27.0-33.0); MEAN CORPUSCULAR HGB CONC 32.7 g/dl (32.0-36.5); MEAN CORPUSCULAR VOLUME 90.8 fl (80.0-96.0); PLATELET COUNT, AUTOMATED 209 10^3/uL (150-450); RED BLOOD COUNT 4.78 10^6/uL (4.00-5.40)
[2023-07-16 11:25] LABS: HCG, SERUM QUALITATIVE NEGATIVE (NEGATIVE)
[2023-07-16] MEDS ORDERED: NS 1,000 ML IV ONE (11:40)
[2023-07-16] MEDS ORDERED: ACETAMINOPHEN 500 MG TAB PO ONE (11:40)
[2023-07-16] MEDS ORDERED: PROV10TA PO (12:48)
[2023-07-16 13:02] VITALS: BP 135/75; TEMP 98.5; O2SAT 98
== END 2023-07-16 13:05 | disposition home or self-care (01) ==
LOC: M ED 09:48
DX: N93.8 Other specified abnormal uterine and vaginal bleeding (principal); Z97.5 Presence of (intrauterine) contraceptive device; I48.91 Unspecified atrial fibrillation; I10 Essential (primary) hypertension; N80.9 Endometriosis, unspecified; F41.9 Anxiety disorder, unspecified; F43.10 Post-traumatic stress disorder, unspecified; F17.290 Nicotine dependence, other tobacco product, uncomplicated; Z79.899 Other long term (current) drug therapy; Z88.6 Allergy status to analgesic agent; Z88.8 Allergy status to other drugs, medicaments and biological substances; Z91.040 Latex allergy status; Z91.041 Radiographic dye allergy status; Z91.89 Other specified personal risk factors, not elsewhere classified; Z88.5 Allergy status to narcotic agent; Z91.013 Allergy to seafood

== ENCOUNTER 2023-07-28 20:28 | Emergency (ER) | payer OTHER ==
[~2023-07-28] VITALS: Ht 165.1 cm; Wt 97.7 kg
[~2023-07-28 20:28] MED LIST changes: +PROV10TA PO
[2023-07-28] MEDS ORDERED: MORPHINE 4 MG/ML 1ML VIAL IV ONE ×2 (21:45→23:45)
[2023-07-28] MEDS ORDERED: diazePAM 10MG/2ML SYRINGE IV ONE (21:45)
[2023-07-28 22:21] LABS: BASO # 0.1 10^3/uL (0.0-0.2); BASO % 0.4 % (0.0-1.0); HEMATOCRIT 37.9 % (36.0-47.0); HEMOGLOBIN 13.1 g/dl (12.0-15.5); LYMPH # 1.6 10^3/uL (1.5-5.0); LYMPH % 12.2 % (24.0-44.0); MEAN CORPUSCULAR HEMOGLOBIN 30.7 pg (27.0-33.0); MEAN CORPUSCULAR HGB CONC 34.6 g/dl (32.0-36.5); MEAN CORPUSCULAR VOLUME 88.8 fl (80.0-96.0); MONO # 0.7 10^3/uL (0.0-0.8); MONO % 4.9 % (2.0-8.0); NEUTROPHILS % 82.1 % (36.0-66.0); PLATELET COUNT, AUTOMATED 261 10^3/uL (150-450); RED BLOOD COUNT 4.27 10^6/uL (4.00-5.40); WHITE BLOOD COUNT 13.4 10^3/uL (4.0-10.0)
[2023-07-28] MEDS: SODIUM CHLORIDE 0.9% INJ 10 ML SYR IV SCH (22:47)
[2023-07-28] MEDS ORDERED: LORazepam 2 MG/ML 1ML VIAL IV STA (23:40)
[2023-07-29] MEDS ORDERED: PROHANCE 279.3MG/ML 5ML VIAL As Ordered ONE (00:17)
[2023-07-29] MEDS ORDERED: PROHANCE 279.3MG/ML 15ML VIAL As Ordered ONE (00:17)
[2023-07-29] MEDS ORDERED: diphenhydrAMINE 50MG/ML VIAL IV ONE (01:10)
[2023-07-29] MEDS ORDERED: HYDROMORPHONE HCL 0.5 MG/ 0.5 ML SYRINGE IV PRN (03:15)
[2023-07-29] MEDS: SODIUM CHLORIDE 0.9% INJ 10 ML SYR IV SCH (03:20)
[2023-07-29] MEDS ORDERED: ONDANSETRON 4MG 2ML VIAL IV ONE (04:20)
[2023-07-29] MEDS ORDERED: ONDANSETRON 4MG 2ML VIAL As Ordered ONE (04:21)
[2023-07-29] MEDS ORDERED: OXYCODONE/APAP 5MG/325MG(HOME DOSE PACK) PO ONE (04:30)
[2023-07-29] MEDS ORDERED: VALI5TAB PO (04:31)
[2023-07-29] MEDS ORDERED: PERC5TAB12 PO (04:31)
[2023-07-29 04:48] VITALS: BP 147/93; TEMP 98; O2SAT 96
== END 2023-07-29 04:50 | disposition home or self-care (01) ==
LOC: M ED 20:28 → EDBD 20:28 → M ED 07-29 04:50
DX: M51.26 Other intervertebral disc displacement, lumbar region (principal); F17.290 Nicotine dependence, other tobacco product, uncomplicated; Z88.8 Allergy status to other drugs, medicaments and biological substances; Z91.048 Other nonmedicinal substance allergy status; Z91.040 Latex allergy status; Z91.013 Allergy to seafood; Z79.51 Long term (current) use of inhaled steroids; Z79.899 Other long term (current) drug therapy
CPT/HCPCS: 72158; 80047; 85025; 96374; 96375; 99285; A9576; J1170; J1200; J2060; J2405; J3360

== ENCOUNTER → 2023-08-11 | Outpatient (REF) | payer OTHER ==
[~2023-08-11] MED LIST changes: +VALI5TAB PO
== END ==
LOC: M LAB REF 16:39
PROVIDERS: ATTEND Pediatrics
DX: R63.5 Abnormal weight gain (principal)

== ENCOUNTER 2023-10-16 15:10 | Outpatient (CLI) | payer OTHER ==
[~2023-10-16] VITALS: Ht 167.6 cm; Wt 97.6 kg
[2023-10-16] MEDS: SODIUM CHLORIDE 0.9% INJ 10 ML SYR IV SCH (15:13)
[2023-10-16 15:20] VITALS: BP 142/86; O2SAT 100
== END 2023-10-16 15:20 | disposition home or self-care (01) ==
LOC: M INFU 15:10
PROVIDERS: ATTEND Pediatrics
DX: I48.91 Unspecified atrial fibrillation (principal); Z91.041 Radiographic dye allergy status; Z88.6 Allergy status to analgesic agent; Z88.8 Allergy status to other drugs, medicaments and biological substances; Z88.5 Allergy status to narcotic agent; Z88.3 Allergy status to other anti-infective agents

== ENCOUNTER 2023-11-13 15:00 | Outpatient (CLI) | payer OTHER ==
[2023-11-13 15:06] VITALS: BP 162/83; O2SAT 100
[2023-11-13] MEDS: SODIUM CHLORIDE 0.9% INJ 10 ML SYR IV SCH (15:10)
== END 2023-11-13 15:20 ==
LOC: M INFU 15:00
PROVIDERS: ATTEND Pediatrics
DX: I48.91 Unspecified atrial fibrillation (principal); Z88.6 Allergy status to analgesic agent; Z88.8 Allergy status to other drugs, medicaments and biological substances; Z91.041 Radiographic dye allergy status; Z88.5 Allergy status to narcotic agent

== ENCOUNTER 2023-12-13 14:09 | Outpatient (CLI) | payer OTHER ==
[~2023-12-13] VITALS: Ht 167.6 cm; Wt 98.0 kg
[2023-12-13 14:20] VITALS: BP 154/80; O2SAT 97
[2023-12-13] MEDS: SODIUM CHLORIDE 0.9% INJ 10 ML SYR IV SCH (14:28)
== END 2023-12-13 14:35 ==
LOC: M INFU 14:09
PROVIDERS: ATTEND Pediatrics
DX: I48.91 Unspecified atrial fibrillation (principal); Z91.041 Radiographic dye allergy status; Z88.6 Allergy status to analgesic agent; Z88.3 Allergy status to other anti-infective agents; Z88.8 Allergy status to other drugs, medicaments and biological substances; Z88.5 Allergy status to narcotic agent

== ENCOUNTER → 2023-12-31 | Outpatient (CLI) | payer OTHER ==
[2023-12-31 19:47] LABS: APPEARANCE, URINE HAZY (CLEAR); BACTERIA, URINE AUTO NEGATIVE (NEGATIVE); BILIRUBIN, URINE AUTO NEGATIVE (NEGATIVE); BLOOD, URINE BLOOD NEGATIVE (NEGATIVE); COLOR, URINE YELLOW (YELLOW); GLUCOSE, URINE (UA) AUTO NEGATIVE (NEGATIVE); KETONE, URINE AUTO NEGATIVE (NEGATIVE); LEUKOCYTE ESTERASE, URINE AUTO NEGATIVE (NEGATIVE); MUCUS, URINE SMALL (NEGATIVE); NITRITE, URINE AUTO NEGATIVE (NEGATIVE); PROTEIN, URINE AUTO NEGATIVE (NEGATIVE); RBC, URINE AUTO 0 /HPF (0-3); SPECIFIC GRAVITY URINE AUTO 1.016 (1.002-1.035); SQUAMOUS EPITHELIAL CELL UR AU 1 /HPF (0-6); UROBILINOGEN, URINE AUTO 0.2 mg/dL (0.0-2.0); WBC, URINE AUTO 1 /HPF (0-3)
[2023-12-31 20:38] LABS: Trichomonas vaginalis (AMP) NOT DETECTED (NEGATIVE)
[2023-12-31 21:02] LABS: GC DNA AMPLIFICATION NEGATIVE (NEGATIVE)
== END ==
LOC: M LAB 19:09
PROVIDERS: ATTEND Physician Assistant Medical
DX: Z20.2 Contact with and (suspected) exposure to infections with a predominantly sexual mode of transmission (principal); N39.0 Urinary tract infection, site not specified

== ENCOUNTER 2024-01-10 14:05 | Outpatient (CLI) | payer OTHER ==
[~2024-01-10] VITALS: Ht 165.1 cm; Wt 88.6 kg
[2024-01-10 14:05] VITALS: BP 159/88; O2SAT 100
[2024-01-10] MEDS: SODIUM CHLORIDE 0.9% INJ 10 ML SYR IV SCH (14:07)
== END 2024-01-10 14:15 | disposition home or self-care (01) ==
LOC: M INFU 14:05
PROVIDERS: ATTEND Pediatrics
DX: I48.91 Unspecified atrial fibrillation (principal); Z91.041 Radiographic dye allergy status; Z88.3 Allergy status to other anti-infective agents; Z88.5 Allergy status to narcotic agent; Z88.6 Allergy status to analgesic agent; Z88.8 Allergy status to other drugs, medicaments and biological substances

== ENCOUNTER 2024-02-07 15:00 | Outpatient (CLI) | payer OTHER ==
[2024-02-07] MEDS: SODIUM CHLORIDE 0.9% INJ 10 ML SYR IV SCH (15:03)
[2024-02-07 15:15] VITALS: BP 150/72; O2SAT 98
== END 2024-02-07 15:15 ==
LOC: M INFU 15:00
PROVIDERS: ATTEND Pediatrics
DX: Z45.2 Encounter for adjustment and management of vascular access device (principal); Z88.6 Allergy status to analgesic agent; Z91.89 Other specified personal risk factors, not elsewhere classified; Z88.3 Allergy status to other anti-infective agents; Z88.5 Allergy status to narcotic agent; Z88.8 Allergy status to other drugs, medicaments and biological substances; Z91.041 Radiographic dye allergy status; Z91.040 Latex allergy status

== ENCOUNTER 2024-03-12 15:48 | Outpatient (CLI) | payer OTHER ==
[~2024-03-12 15:48] MED LIST changes: +SODIUM CHLORIDE 0.9% INJ 10 ML SYR IV SCH
[2024-03-12 16:03] VITALS: BP 143/83; O2SAT 100
[2024-03-12] MEDS: SODIUM CHLORIDE 0.9% INJ 10 ML SYR IV SCH (16:07)
== END 2024-03-12 16:30 ==
LOC: M INFU 15:48
PROVIDERS: ATTEND Pediatrics
DX: Z45.2 Encounter for adjustment and management of vascular access device (principal); Z88.6 Allergy status to analgesic agent; Z91.89 Other specified personal risk factors, not elsewhere classified; Z88.3 Allergy status to other anti-infective agents; Z88.5 Allergy status to narcotic agent; Z88.8 Allergy status to other drugs, medicaments and biological substances; Z91.041 Radiographic dye allergy status; Z91.040 Latex allergy status

== ENCOUNTER 2024-04-03 15:32 | Outpatient (CLI) | payer OTHER ==
[~2024-04-03 15:32] MED LIST changes: -SODIUM CHLORIDE 0.9% INJ 10 ML SYR IV SCH
[2024-04-03] MEDS: SODIUM CHLORIDE 0.9% INJ 10 ML SYR IV SCH (15:39)
[2024-04-03 15:45] VITALS: BP 157/80; O2SAT 98
== END 2024-04-03 15:45 | disposition home or self-care (01) ==
LOC: M INFU 15:32
PROVIDERS: ATTEND Pediatrics
DX: I48.91 Unspecified atrial fibrillation (principal); Z91.041 Radiographic dye allergy status; Z88.6 Allergy status to analgesic agent; Z91.89 Other specified personal risk factors, not elsewhere classified; Z88.8 Allergy status to other drugs, medicaments and biological substances; Z91.040 Latex allergy status; Z88.3 Allergy status to other anti-infective agents; Z88.5 Allergy status to narcotic agent

== ENCOUNTER 2024-04-12 13:01 | Emergency (ER) | payer OTHER ==
[~2024-04-12] VITALS: Ht 165.1 cm; Wt 87.9 kg
[~2024-04-12 13:01] MED LIST changes: +EPIP0.3I2 IM; -EPIP0.3I2 INJ; -VENTAER; +VENTAER INH
[2024-04-12] MEDS ORDERED: METHOCARBAMOL 1,000 MG/10 ML VIAL IV ONE (14:45)
[2024-04-12] MEDS: ACETAMINOPHEN *IV* 1,000 MG in IV 1 EA IV ONE (15:43)
[2024-04-12] MEDS: METHOCARBAMOL 1,000 MG/10 ML VIAL IV ONE (15:44)
[2024-04-12] MEDS: MORPHINE 2 MG/ML 1ML VIAL IV ONE ×3 (17:31→23:44)
[2024-04-12] MEDS: diazePAM 5MG TABLET PO ONE (20:14)
[2024-04-12 22:19] LABS: BASO # 0.1 10^3/uL (0.0-0.2); BASO % 0.8 % (0.0-1.0); EOS # 0.3 10^3/uL (0.0-0.5); EOS % 2.8 % (0.0-3.0); HEMATOCRIT 42.1 % (36.0-47.0); HEMOGLOBIN 14.4 g/dl (12.0-15.5); LYMPH # 4.3 10^3/uL (1.5-5.0); LYMPH % 41.2 % (24.0-44.0); MEAN CORPUSCULAR HEMOGLOBIN 29.7 pg (27.0-33.0); MEAN CORPUSCULAR HGB CONC 34.2 g/dl (32.0-36.5); MEAN CORPUSCULAR VOLUME 86.8 fl (80.0-96.0); MONO # 0.7 10^3/uL (0.0-0.8); MONO % 6.2 % (2.0-8.0); NEUTROPHILS # 5.1 10^3/uL (1.5-8.5); NEUTROPHILS % 48.7 % (36.0-66.0); PLATELET COUNT, AUTOMATED 217 10^3/uL (150-450); RED BLOOD COUNT 4.85 10^6/uL (4.00-5.40); WHITE BLOOD COUNT 10.4 10^3/uL (4.0-10.0)
[2024-04-12 22:41] LABS: BLOOD UREA NITROGEN 7 MG/DL (9-23); CARBON DIOXIDE LEVEL 23 MMOL/L (20-31); CHLORIDE LEVEL 108 MMOL/L (98-107); CREATININE FOR GFR 0.66 MG/DL (0.55-1.30); GLOMERULAR FILTRATION RATE > 60.0 (>60); GLUCOSE, FASTING 88 MG/DL (60-100); POTASSIUM SERUM 4.1 MMOL/L (3.5-5.1); SODIUM LEVEL 139 MMOL/L (136-145)
[2024-04-12] MEDS ORDERED: IRBE150T27 PO (23:25)
[2024-04-12] MEDS ORDERED: HOME MED LIST COMPLETE! XX SCH (23:25)
[2024-04-12] MEDS: methylPREDNISolone 125MG 2ML VIAL IV ONE (23:38)
[2024-04-13] MEDS: ONDANSETRON 4MG 2ML VIAL IV ONE (02:38)
[2024-04-13] MEDS: MORPHINE 4 MG/ML 1ML VIAL IV PRN (02:41)
[2024-04-13] MEDS: METOCLOPRAMIDE INJ 10MG/2ML VIAL IV ONE (04:59)
[2024-04-13 08:27] VITALS: BP 141/72; TEMP 96.4; O2SAT 97
== END 2024-04-13 08:53 | disposition short-term general hospital (02) ==
LOC: M ED 13:01
DX: M51.16 Intervertebral disc disorders with radiculopathy, lumbar region (principal); I10 Essential (primary) hypertension; M79.7 Fibromyalgia; F43.10 Post-traumatic stress disorder, unspecified; Z79.899 Other long term (current) drug therapy; Z88.6 Allergy status to analgesic agent; Z91.89 Other specified personal risk factors, not elsewhere classified; Z88.8 Allergy status to other drugs, medicaments and biological substances; Z88.3 Allergy status to other anti-infective agents; Z88.5 Allergy status to narcotic agent; Z91.013 Allergy to seafood; Z91.040 Latex allergy status; Z91.041 Radiographic dye allergy status
CPT/HCPCS: 72148; 80048; 85025; 96365; 96366; 96375; 96376; 99284; J0131; J2405; J2765; J2800; J2919

== ENCOUNTER 2024-05-01 15:15 | Outpatient (CLI) | payer OTHER ==
[~2024-05-01 15:15] MED LIST changes: +IRBE150T27 PO
[2024-05-01] MEDS: SODIUM CHLORIDE 0.9% INJ 10 ML SYR IV SCH (15:23)
[2024-05-01 15:30] VITALS: BP 176/88; O2SAT 99
== END 2024-05-01 15:30 ==
LOC: M INFU 15:15
PROVIDERS: ATTEND Pediatrics
DX: I48.91 Unspecified atrial fibrillation (principal); Z91.041 Radiographic dye allergy status; Z88.6 Allergy status to analgesic agent; Z91.89 Other specified personal risk factors, not elsewhere classified; Z88.8 Allergy status to other drugs, medicaments and biological substances; Z88.3 Allergy status to other anti-infective agents; Z91.040 Latex allergy status; Z88.5 Allergy status to narcotic agent
CPT/HCPCS: 96523; J1642

== ENCOUNTER 2024-06-05 15:23 | Outpatient (CLI) | payer OTHER ==
[2024-06-05] MEDS: SODIUM CHLORIDE 0.9% INJ 10 ML SYR IV SCH (15:35)
[2024-06-05 15:45] VITALS: BP 162/88; O2SAT 98
== END 2024-06-05 15:45 ==
LOC: M INFU 15:23
PROVIDERS: ATTEND Pediatrics
DX: Z45.2 Encounter for adjustment and management of vascular access device (principal)
CPT/HCPCS: 96523; J1642

== ENCOUNTER → 2024-07-03 | Outpatient (REF) | payer OTHER | LOC: M LAB REF 16:14 | PROVIDERS: ATTEND Physician Assistant | DX: B34.9 Viral infection, unspecified (principal) ==

== ENCOUNTER 2024-07-10 14:10 | Outpatient (CLI) | payer OTHER ==
[~2024-07-10 14:10] MED LIST changes: +SODIUM CHLORIDE 0.9% INJ 10 ML SYR IV SCH
[2024-07-10] MEDS: SODIUM CHLORIDE 0.9% INJ 10 ML SYR IV SCH (14:16)
[2024-07-10 14:25] VITALS: BP 118/75; O2SAT 98
== END 2024-07-10 14:25 ==
LOC: M INFU 14:10
PROVIDERS: ATTEND Pediatrics
DX: I48.91 Unspecified atrial fibrillation (principal); Z91.041 Radiographic dye allergy status; Z91.040 Latex allergy status; Z91.89 Other specified personal risk factors, not elsewhere classified; Z88.6 Allergy status to analgesic agent; Z88.3 Allergy status to other anti-infective agents; Z88.8 Allergy status to other drugs, medicaments and biological substances
CPT/HCPCS: 96523; J1642

== ENCOUNTER 2024-08-27 12:15 | Outpatient (CLI) | payer OTHER ==
[~2024-08-27] VITALS: Ht 165.1 cm; Wt 88.1 kg
[2024-08-27 12:05] VITALS: BP 141/81; O2SAT 100
[~2024-08-27 12:15] MED LIST changes: -SODIUM CHLORIDE 0.9% INJ 10 ML SYR IV SCH
[2024-08-27] MEDS: SODIUM CHLORIDE 0.9% INJ 10 ML SYR IV SCH (12:17)
[2024-08-27] MEDS ORDERED: SODIUM CHLORIDE 0.9% INJ 10 ML SYR IV PRN (12:30)
[2024-08-28] MEDS ORDERED: SODIUM CHLORIDE 0.9% INJ 10 ML SYR IV SCH (09:00)
== END 2024-08-27 12:30 | disposition home or self-care (01) ==
LOC: M INFU 12:15
PROVIDERS: ATTEND Pediatrics
DX: Z45.2 Encounter for adjustment and management of vascular access device (principal); Z91.041 Radiographic dye allergy status; Z88.6 Allergy status to analgesic agent; Z91.89 Other specified personal risk factors, not elsewhere classified; Z91.040 Latex allergy status; Z88.3 Allergy status to other anti-infective agents; Z88.5 Allergy status to narcotic agent; Z88.8 Allergy status to other drugs, medicaments and biological substances
CPT/HCPCS: 96523; J1642

== ENCOUNTER 2024-10-15 08:52 | Outpatient (CLI) | payer OTHER ==
[2024-10-15 09:05] VITALS: BP 161/72; O2SAT 99
[2024-10-15] MEDS: SODIUM CHLORIDE 0.9% INJ 10 ML SYR IV SCH (09:08)
== END 2024-10-15 09:20 ==
LOC: M INFU 08:52
PROVIDERS: ATTEND Pediatrics
DX: Z45.2 Encounter for adjustment and management of vascular access device (principal); Z88.6 Allergy status to analgesic agent; Z88.8 Allergy status to other drugs, medicaments and biological substances; Z88.3 Allergy status to other anti-infective agents; Z88.5 Allergy status to narcotic agent; Z91.89 Other specified personal risk factors, not elsewhere classified; Z91.041 Radiographic dye allergy status

== ENCOUNTER → 2024-10-30 | Outpatient (REF) | payer OTHER ==
[2024-10-30 16:50] LABS: APPEARANCE, URINE MANUAL HAZY (CLEAR); COLOR, URINE MANUAL ORANGE (YELLOW)
[2024-10-30 16:51] LABS: BILIRUBIN, URINE MANUAL OBSCURED (NEGATIVE); BLOOD URINE MANUAL OBSCURED (NEGATIVE); GLUCOSE, URINE (UA) MANUAL OBSCURED mg/dL (NEGATIVE); KETONE, URINE MANUAL OBSCURED mg/dL (NEGATIVE); LEUKOCYTE ESTERASE, URINE MAN OBSCURED (NEGATIVE); NITRITE, URINE MANUAL OBSCURED (NEGATIVE); PROTEIN, URINE MANUAL OBSCURED mg/dL (NEGATIVE); UROBILINOGEN, URINE MANUAL OBSCURED mg/dl (NORMAL)
[2024-10-30 16:54] LABS: BACTERIA, URINE MOD AMOUNT; MUCUS, URINE SMALL AMOUNT (NEGATIVE); SQUAMOUS EPITHELIAL CELL URINE SMALL AMOUNT /hpf (SMALL AMT); TRANSITIONAL EPI CELLS, URINE SMALL AMOUNT /hpf
[2024-10-30 18:09] LABS: Trichomonas vaginalis (AMP) NOT DETECTED (NEGATIVE)
[2024-10-30 18:33] LABS: GC DNA AMPLIFICATION NEGATIVE (NEGATIVE)
== END ==
LOC: M LAB REF 16:27
PROVIDERS: ATTEND Physician Assistant Medical
DX: N39.0 Urinary tract infection, site not specified (principal)

== ENCOUNTER 2024-11-08 13:17 | Emergency (ER) | payer OTHER ==
[2024-11-08] MEDS: FLUORESCEIN OPHTH 1MG STRIP OS ONE (13:50)
[2024-11-08] MEDS: TETRACAINE 0.5% OPHTH SOLN 4ML OS ONE (13:50)
[2024-11-08 14:53] LABS: INR 0.98; PARTIAL THROMBOPLASTIN TIME 29.9 SECONDS (24.8-34.2); PROTHROMBIN TIME 13.3 SECONDS (12.5-14.5)
[2024-11-08 14:57] LABS: BASO # 0.1 10^3/uL (0.0-0.2); BASO % 0.7 % (0.0-1.0); EOS # 0.2 10^3/uL (0.0-0.5); EOS % 2.2 % (0.0-3.0); HEMATOCRIT 39.9 % (36.0-47.0); HEMOGLOBIN 13.4 g/dl (12.0-15.5); LYMPH # 3.2 10^3/uL (1.5-5.0); LYMPH % 33.8 % (24.0-44.0); MEAN CORPUSCULAR HEMOGLOBIN 29.8 pg (27.0-33.0); MEAN CORPUSCULAR HGB CONC 33.6 g/dl (32.0-36.5); MEAN CORPUSCULAR VOLUME 88.7 fl (80.0-96.0); MONO # 0.6 10^3/uL (0.0-0.8); MONO % 6.1 % (2.0-8.0); NEUTROPHILS # 5.4 10^3/uL (1.5-8.5); NEUTROPHILS % 56.9 % (36.0-66.0); PLATELET COUNT, AUTOMATED 242 10^3/uL (150-450); WHITE BLOOD COUNT 9.5 10^3/uL (4.0-10.0)
[2024-11-08 18:00] VITALS: BP 135/68; TEMP 97.4; O2SAT 100
[2024-11-08] MEDS ORDERED: VALA1TAB5 PO (18:02)
[2024-11-08] MEDS ORDERED: PRED10TA2 PO (18:02)
[2024-11-08] MEDS: predniSONE 20 MG TAB PO ONE (18:09)
[2024-11-08] MEDS: valACYclovir HCL 500 MG TAB PO ONE (18:09)
== END 2024-11-08 18:25 | disposition home or self-care (01) ==
LOC: M ED 13:17
DX: B02.9 Zoster without complications (principal); G43.809 Other migraine, not intractable, without status migrainosus; I10 Essential (primary) hypertension; M79.7 Fibromyalgia; K21.9 Gastro-esophageal reflux disease without esophagitis; F43.10 Post-traumatic stress disorder, unspecified; F41.9 Anxiety disorder, unspecified; Z79.899 Other long term (current) drug therapy; Z91.040 Latex allergy status; Z91.041 Radiographic dye allergy status; Z88.6 Allergy status to analgesic agent; Z88.8 Allergy status to other drugs, medicaments and biological substances; Z91.89 Other specified personal risk factors, not elsewhere classified; Z88.3 Allergy status to other anti-infective agents; Z91.013 Allergy to seafood; Z88.5 Allergy status to narcotic agent
CPT/HCPCS: 70450; 70544; 70547; 70551; 71045; 80047; 85025; 85610; 85730; 93005; 93041; 94760; 99285; J7512

== ENCOUNTER 2024-11-12 08:50 | Outpatient (CLI) | payer OTHER ==
[~2024-11-12] VITALS: Ht 165.1 cm; Wt 85.0 kg
[2024-11-12 08:50] VITALS: BP 141/83; O2SAT 99
[~2024-11-12 08:50] MED LIST changes: +VALA1TAB5 PO
[2024-11-12] MEDS: SODIUM CHLORIDE 0.9% INJ 10 ML SYR IV SCH (08:56)
[2024-11-12] MEDS ORDERED: SODIUM CHLORIDE 0.9% INJ 10 ML SYR IV PRN (09:00)
== END 2024-11-12 09:00 ==
LOC: M INFU 08:50
PROVIDERS: ATTEND Pediatrics
DX: Z45.2 Encounter for adjustment and management of vascular access device (principal); Z88.8 Allergy status to other drugs, medicaments and biological substances; Z88.6 Allergy status to analgesic agent; Z88.3 Allergy status to other anti-infective agents; Z88.5 Allergy status to narcotic agent; Z91.89 Other specified personal risk factors, not elsewhere classified; Z91.040 Latex allergy status; Z91.041 Radiographic dye allergy status
CPT/HCPCS: 96523; J1642

== ENCOUNTER → 2024-11-20 | Outpatient (REF) | payer OTHER ==
[2024-11-20 18:34] LABS: APPEARANCE, URINE CLEAR (CLEAR); BACTERIA, URINE AUTO NEGATIVE (NEGATIVE); BILIRUBIN, URINE AUTO NEGATIVE (NEGATIVE); BLOOD, URINE BLOOD NEGATIVE (NEGATIVE); COLOR, URINE STRAW (YELLOW); GLUCOSE, URINE (UA) AUTO NEGATIVE (NEGATIVE); KETONE, URINE AUTO NEGATIVE (NEGATIVE); LEUKOCYTE ESTERASE, URINE AUTO NEGATIVE (NEGATIVE); NITRITE, URINE AUTO NEGATIVE (NEGATIVE); PROTEIN, URINE AUTO NEGATIVE (NEGATIVE); RBC, URINE AUTO 1 /HPF (0-3); SPECIFIC GRAVITY URINE AUTO 1.005 (1.002-1.035); SQUAMOUS EPITHELIAL CELL UR AU 5 /HPF (0-6); UROBILINOGEN, URINE AUTO 0.2 mg/dL (0.0-2.0); WBC, URINE AUTO 2 /HPF (0-3)
== END ==
LOC: M LAB REF 17:28
PROVIDERS: ATTEND Physician Assistant Medical
DX: N39.0 Urinary tract infection, site not specified (principal)

== ENCOUNTER 2025-01-15 12:38 | Outpatient (CLI) | payer OTHER ==
[~2025-01-15] VITALS: Ht 165.1 cm; Wt 81.0 kg
[2025-01-15] MEDS: SODIUM CHLORIDE 0.9% INJ 10 ML SYR IV SCH (12:57)
[2025-01-15 13:10] VITALS: BP 138/79; O2SAT 55
== END 2025-01-15 13:10 | disposition home or self-care (01) ==
LOC: M INFU 12:38
PROVIDERS: ATTEND Pediatrics
DX: Z45.2 Encounter for adjustment and management of vascular access device (principal); Z88.6 Allergy status to analgesic agent; Z88.5 Allergy status to narcotic agent; Z88.3 Allergy status to other anti-infective agents; Z91.89 Other specified personal risk factors, not elsewhere classified; Z91.040 Latex allergy status; Z91.041 Radiographic dye allergy status
CPT/HCPCS: 96523; J1642

== ENCOUNTER 2025-04-17 13:13 | Outpatient (RCR) | payer OTHER | END 2025-05-04 | LOC: M PT 13:13 | PROVIDERS: ATTEND Physical Medicine & Rehabilitation Pain Medicine | DX: M53.3 Sacrococcygeal disorders, not elsewhere classified (principal) ==

== ENCOUNTER 2025-04-27 13:30 | Emergency (ER) | payer OTHER ==
[~2025-04-27] VITALS: Ht 165.1 cm; Wt 80.7 kg
[2025-04-27 14:30] LABS: KETONE, URINE AUTO RFX NEGATIVE (NEGATIVE); LEUKOCYTE ESTERASE UR AUTO RFX NEGATIVE (NEGATIVE); NITRITE, URINE AUTO RFX NEGATIVE (NEGATIVE); RBC, URINE AUTO RFX 1 /HPF (0-3); SQUAM EPITHELIAL CELL UR AURFX 0 /HPF (0-6); WBC, URINE AUTO RFX 0 /HPF (0-3)
[2025-04-27 14:33] LABS: BASO # 0.1 10^3/uL (0.0-0.2); BASO % 0.6 % (0.0-1.0); EOS # 0.3 10^3/uL (0.0-0.5); EOS % 2.6 % (0.0-3.0); LYMPH # 2.5 10^3/uL (1.5-5.0); LYMPH % 21.6 % (24.0-44.0); MONO # 0.7 10^3/uL (0.0-0.8); MONO % 5.8 % (2.0-8.0); NEUTROPHILS # 8.0 10^3/uL (1.5-8.5); NEUTROPHILS % 69.1 % (36.0-66.0); PLATELET COUNT, AUTOMATED 235 10^3/uL (150-450)
[2025-04-27 14:57] LABS: CALCIUM LEVEL 8.6 MG/DL (8.5-10.1); CARBON DIOXIDE LEVEL 26 MMOL/L (20-31); CHLORIDE LEVEL 106 MMOL/L (98-107); CREATININE FOR GFR 0.57 MG/DL (0.55-1.30); GLOMERULAR FILTRATION RATE > 90.0 (>60); POTASSIUM SERUM 3.7 MMOL/L (3.5-5.1); SODIUM LEVEL 142 MMOL/L (136-145)
[2025-04-27 15:29] LABS: HCG, SERUM QUANTITATIVE 98351.1 MIU/ML (<4.2)
[2025-04-27] MEDS: NS (Normal Saline) 0.9% 1,000 ML IV ONE (16:22)
[2025-04-27 17:12] VITALS: BP 118/74; TEMP 98.4; O2SAT 100
== END 2025-04-27 17:16 | disposition home or self-care (01) ==
LOC: M ED 13:30
DX: O20.0 Threatened abortion (principal); O26.91 Pregnancy related conditions, unspecified, first trimester; O20.9 Hemorrhage in early pregnancy, unspecified; Z3A.08 8 weeks gestation of pregnancy; Z86.19 Personal history of other infectious and parasitic diseases; Z87.59 Personal history of other complications of pregnancy, childbirth and the puerperium; Z87.01 Personal history of pneumonia (recurrent); O26.891 Other specified pregnancy related conditions, first trimester; O99.611 Diseases of the digestive system complicating pregnancy, first trimester; O10.911 Unspecified pre-existing hypertension complicating pregnancy, first trimester; O99.411 Diseases of the circulatory system complicating pregnancy, first trimester; I51.9 Heart disease, unspecified; O99.341 Other mental disorders complicating pregnancy, first trimester; F43.10 Post-traumatic stress disorder, unspecified; F41.9 Anxiety disorder, unspecified; O99.321 Drug use complicating pregnancy, first trimester; F12.10 Cannabis abuse, uncomplicated; O99.331 Smoking (tobacco) complicating pregnancy, first trimester; F17.290 Nicotine dependence, other tobacco product, uncomplicated; Z91.041 Radiographic dye allergy status; Z91.89 Other specified personal risk factors, not elsewhere classified; Z91.040 Latex allergy status; Z88.6 Allergy status to analgesic agent; Z88.8 Allergy status to other drugs, medicaments and biological substances; Z88.3 Allergy status to other anti-infective agents; Z88.5 Allergy status to narcotic agent
CPT/HCPCS: 76801; 80048; 81001; 84702; 85025; 86850; 86900; 86901; 96361; 96374; 99283; J2765

== ENCOUNTER 2025-05-09 16:51 | Outpatient (CLI) | payer OTHER ==
[2025-05-09] MEDS: SODIUM CHLORIDE 0.9% INJ 10 ML SYR IV SCH (17:31)
[2025-05-09] MEDS: HEPARIN LOCK FLUSH 100 UNITS/ML 3 ML SYRINGE IV SCH (17:32)
[2025-05-09 17:45] VITALS: BP 137/85; O2SAT 98
[2025-05-09 18:11] LABS: PLATELET COUNT, AUTOMATED 236 10^3/uL (150-450)
[2025-05-09 18:38] LABS: LDH LACTATE DEHYDROGENASE 172 U/L (120-246)
[2025-05-09 18:39] LABS: ALT/SGPT 16 U/L (7.0-40); AST/SGOT 20 U/L (<34); CREATININE FOR GFR 0.50 MG/DL (0.55-1.30); GLOMERULAR FILTRATION RATE > 90.0 (>60)
[2025-05-09 19:12] LABS: HIV 1&2 SCREEN NEGATIVE (NEGATIVE)
[2025-05-09 19:20] LABS: HEPATITIS C VIRUS ABY INDEX 0.03 INDEX (<0.8)
[2025-05-10 14:17] LABS: TOTAL PROTEIN,RANDOM URINE 11.9 MG/DL (0.0-14.0)
[2025-05-10 14:56] LABS: Trichomonas vaginalis (AMP) NOT DETECTED (NEGATIVE)
[2025-05-10 15:20] LABS: GC DNA AMPLIFICATION NEGATIVE (NEGATIVE)
== END 2025-05-09 17:45 | disposition home or self-care (01) ==
LOC: M INFU 16:51
PROVIDERS: ATTEND Student in an Organized Health Care Education/Training Program
DX: O09.90 Supervision of high risk pregnancy, unspecified, unspecified trimester (principal); Z91.041 Radiographic dye allergy status; Z88.6 Allergy status to analgesic agent; Z91.89 Other specified personal risk factors, not elsewhere classified; Z88.8 Allergy status to other drugs, medicaments and biological substances; Z88.3 Allergy status to other anti-infective agents; Z91.040 Latex allergy status; Z88.5 Allergy status to narcotic agent
CPT/HCPCS: 36415; 82247; 82570; 83615; 84156; 84450; 84460; 84550; 85027; 86762; 86780; 86803; 86850; 86900; 86901; 87086; 87340; 87389; 87661; 87810; 87850; 96523; J1642

== ENCOUNTER → 2025-05-09 | Outpatient (REF) | payer OTHER | LOC: M PLALAB 11:49 | PROVIDERS: ATTEND Student in an Organized Health Care Education/Training Program | DX: Z53.9 Procedure and treatment not carried out, unspecified reason (principal) ==

== ENCOUNTER → 2025-06-16 | Outpatient (CLI) | payer OTHER | LOC: M LAB 17:41 | PROVIDERS: ATTEND Obstetrics & Gynecology | DX: O09.522 Supervision of elderly multigravida, second trimester (principal); Z13.79 Encounter for other screening for genetic and chromosomal anomalies; Z3A.14 14 weeks gestation of pregnancy; O10.012 Pre-existing essential hypertension complicating pregnancy, second trimester; O34.211 Maternal care for low transverse scar from previous cesarean delivery; O99.412 Diseases of the circulatory system complicating pregnancy, second trimester ==

== ENCOUNTER → 2025-07-09 | Outpatient (REF) | payer OTHER ==
[~2025-07-09] MED LIST changes: -PROC5TAB57 PO; +PROC5TAB81 PO
[2025-07-09 17:10] LABS: Trichomonas vaginalis (AMP) NOT DETECTED (NEGATIVE)
[2025-07-09 17:34] LABS: GC DNA AMPLIFICATION NEGATIVE (NEGATIVE)
== END ==
LOC: M PLALAB 11:59
PROVIDERS: ATTEND Obstetrics & Gynecology
DX: R39.9 Unspecified symptoms and signs involving the genitourinary system (principal); Z11.3 Encounter for screening for infections with a predominantly sexual mode of transmission

== ENCOUNTER → 2025-07-15 | Outpatient (CLI) | payer OTHER | LOC: M WHC 11:53 | PROVIDERS: ATTEND Student in an Organized Health Care Education/Training Program | DX: O09.522 Supervision of elderly multigravida, second trimester (principal); O10.919 Unspecified pre-existing hypertension complicating pregnancy, unspecified trimester ==

== ENCOUNTER 2025-07-22 15:26 | Outpatient (CLI) | payer OTHER ==
[~2025-07-22] VITALS: Ht 165.1 cm; Wt 93.2 kg
[2025-07-22 14:10] VITALS: BP 151/80; O2SAT 100
[2025-07-22] MEDS: SODIUM CHLORIDE 0.9% INJ 10 ML SYR IV SCH (15:53)
[2025-07-22] MEDS: HEPARIN LOCK FLUSH 100 UNITS/ML 3 ML SYRINGE IV SCH (15:53)
== END 2025-07-22 16:15 | disposition home or self-care (01) ==
LOC: M INFU 15:26
PROVIDERS: ATTEND Pediatrics
DX: Z45.2 Encounter for adjustment and management of vascular access device (principal); Z13.79 Encounter for other screening for genetic and chromosomal anomalies
CPT/HCPCS: 96523; J1642

== ENCOUNTER → 2025-08-15 | Outpatient (CLI) | payer OTHER | LOC: M RAD 11:05 | PROVIDERS: ATTEND Advanced Practice Midwife | DX: M79.669 Pain in unspecified lower leg (principal) ==

== ENCOUNTER 2025-08-21 16:30 | Outpatient (CLI) | payer OTHER ==
[~2025-08-21 16:30] MED LIST changes: +HEPARIN LOCK FLUSH 100 UNITS/ML 3 ML SYRINGE IV PRN; +SODIUM CHLORIDE 0.9% INJ 10 ML SYR IV PRN
[2025-08-21] MEDS: HEPARIN LOCK FLUSH 100 UNITS/ML 3 ML SYRINGE IV SCH (16:38)
[2025-08-21] MEDS: SODIUM CHLORIDE 0.9% INJ 10 ML SYR IV SCH (16:38)
[2025-08-21 16:56] VITALS: BP 143/91; O2SAT 99
== END 2025-08-21 16:56 ==
LOC: M INFU 16:30
PROVIDERS: ATTEND Obstetrics & Gynecology
DX: Z45.2 Encounter for adjustment and management of vascular access device (principal); Z91.041 Radiographic dye allergy status; Z91.040 Latex allergy status; Z91.89 Other specified personal risk factors, not elsewhere classified; Z88.6 Allergy status to analgesic agent; Z88.8 Allergy status to other drugs, medicaments and biological substances; Z88.3 Allergy status to other anti-infective agents; Z88.5 Allergy status to narcotic agent
CPT/HCPCS: 96523; J1642

== ENCOUNTER → 2025-08-27 | Outpatient (CLI) | payer OTHER ==
[~2025-08-27] MED LIST changes: -HEPARIN LOCK FLUSH 100 UNITS/ML 3 ML SYRINGE IV PRN; -SODIUM CHLORIDE 0.9% INJ 10 ML SYR IV PRN
== END ==
LOC: M WHC 06:38
PROVIDERS: ATTEND Advanced Practice Midwife
DX: Z36.2 Encounter for other antenatal screening follow-up (principal)